=== PATIENT | male | born 1960 | race Caucasian/White ===

== ENCOUNTER 2019-01-05 11:08 | Inpatient (IN) ==
[2019-01-05] MEDS ORDERED: CARDIZEM IV ONE (11:34)
[2019-01-05 11:39] LABS: BE -4.6 mmoll (-3.0-3.0); BLOOD TYPE ARTERIAL; HCO3-(ACT) 21.1 mmoll (20.0-26.0); METHB 1.2 % (0.0-1.5); O2(CT) 21.9 mL/dL (15.0-23.0); O2HB 91.2 % (95.0-99.0); PCO2(98.6) 29 mmHg (35-45); PO2(98.6) 67 mmHg (60-100); SAMPLE BLOOD; SAO2 94.6 % (95.0-100.0); THB 17.1 g/dL (11.5-17.4); pH(98.6) 7.41 (7.35-7.45)
[2019-01-05 11:41] LABS: ALLEN TEST YES; MODALITY ROOM AIR
--- NOTE | 2019-01-05 11:41 | PROVIDER DOCUMENTATION ---
HPI-Respiratory General - General Chief Complaint: Alcohol Withdrawal Stated Complaint: WITHDRAWLS / SOB Time Seen by Provider: 01/05/19 11:24 Source: patient Allergies/Adverse Reactions: Patient Allergies Allergy/AdvReac Type Severity Reaction Status Date / Time No Known Allergies Allergy Verified 01/05/19 11:20 Home Medications: Home Medication List Medication Instructions Recorded Confirmed Last Taken Type NK [No Home Medications] 01/05/19 01/05/19 Unknown History - History of Present Illness-Resp Nature of Presenting Problem: Pt is 58 yo male, states shortness of breath worse today. Denies chest pain. D enies cough or fever. Pt states he drinks approx 1 pint of vodka per day and has not had anything to drink in 6 days. Family member states "he has all of the symptoms of copd and we need to get him diagnosed today if we can". Pt reports pmh includes colon ca several years ago, afib, currently not taking any meds x 4 years. Onset/Duration: reports: gradual Timing: reports: still present, getting worse Review of Systems - Adult - REVIEW OF SYSTEMS - ADULT Constitutional: denies: fever Eyes: reports: no symptoms reported Ears, Nose, Mouth & Throat: reports: no symptoms reported Cardiovascular: reports: edema. denies: chest pain Respiratory: reports: shortness of breath. denies: cough Gastrointestinal: reports: no symptoms reported Genitourinary: reports: no symptoms reported Musculoskeletal: reports: no symptoms reported Integumentary: reports: no symptoms reported Neurological: reports: no symptoms reported Psychiatric: reports: alcohol/drug dependence Endocrine: reports: no symptoms reported Hematologic/Lymphatic: reports: no symptoms reported Allergic/Immunologic: reports: no symptoms reported All Other Systems: Reviewed and Negative Past History - Adult - PAST MEDICAL HISTORY-ADULT Review of Records: reports: Medications Reviewed, Social history reviewed & non- contributory. Physical Exam-General - PHYSICAL EXAM-ADULT Initial Vital Signs Reviewed: Yes (tachycardic) - CONSTITUTIONAL General Appearance: appears well, alert - EYES Eyes: PERRL/EOMI, pink conjunctivae - HEAD, EARS, NOSE, MOUTH & THROAT HENMT: normocephalic/atraumatic, moist mucous membranes - NECK Neck: supple - RESPIRATORY Respiratory: respiratory distress (mild with conversing), decreased breath sounds (bilat bases) - CARDIOVASCULAR Cardiovascular: tachycardia, irregularly irregular - GASTROINTESTINAL (ABDOMEN) Abdominal Exam: non tender, soft, no organomegaly, guarding, other (well healed midline incision present) - MUSCULOSKELETAL Back Exam: normal inspection Extremity: swelling (bilat lower ext swelling 2+ pitting) - SKIN Integumentary: warm/dry, cyanosis (nose and ears) - NEUROLOGIC Neurologic: grossly normal - PSYCHIATRIC Psych/Mental Status: normal thought content, normal thought process, oriented x 3, anxious, disheveled Progress - PLAN OF CARE/RESULTS Progress/Plan/Lab Results: Vital Signs - 8 hr 01/05/19 11:14 01/05/19 11:29 01/05/19 11:40 Temperature 98 F Pulse Rate 107 H 175 H 139 H Respiratory Rate 19 27 H 23 Blood Pressure 127/94 161/126 151/116 O2 Sat by Pulse Oximetry 95 95 96 Laboratory Results - last 24 hr 01/05/19 01/05/19 01/05/19 11:30 11:30 11:30 WBC 8.32 RBC 4.71 Hgb 16.6 Hct 48.7 MCV 103.4 H MCH 35.2 H MCHC 34.1 RDW Std Deviation 16.8 H Plt Count 160 MPV 10.4 Immature Gran % (Auto) 0.2 Neut % (Auto) 84.1 H Lymph % (Auto) 7.8 L Esmeralda % (Auto) 7.3 Eos % (Auto) 0.4 Baso % (Auto) 0.2 Immature Gran # (Auto) 0.02 Neut # (Auto) 6.99 H Lymph # (Auto) 0.65 L Esmeralda # (Auto) 0.61 H Eos # (Auto) 0.03 Baso # (Auto) 0.02 PT INR PTT (Actin FS) D-Dimer, Quantitative Specimen Type Sample Site pH pCO2 pO2 HCO3 Base Excess Oxyhemoglobin ABG O2 Sat (Calculated) ABG O2 Saturation ABG Carboxyhemoglobin ABG Methemoglobin Gumaro Test A-a O2 Difference Total Hemoglobin Lactate Blood Gas Modality FiO2 % Sodium Potassium Chloride Carbon Dioxide Anion Gap BUN Creatinine Estimated GFR/1.73 m2 BUN/Creatinine Ratio Glucose Calculated Osmolality Calcium Magnesium Total Bilirubin AST ALT Alkaline Phosphatase Creatine Kinase 141 Troponin T 0.041 Sax-I-Cynjxzdxtyc Pept Total Protein Albumin Globulin Albumin/Globulin Ratio Plasma Lactate Urine Source Urine Color Urine Clarity Urine pH Ur Specific [place] Urine Protein Urine Ketones Urine Blood Urine Nitrite Urine Bilirubin Urine Urobilinogen Urine Microscopic RBC Urine WBC Urine Microscopic WBC Ur Epithelial Cells Urine Crystals Urine Bacteria Urine Casts Urine Yeast Urine Glucose Urine Opiates Screen Ur Oxycodone Screen Urine Methadone Screen U Propoxyphene Qual Ur Barbituates Screen Ur Tricyclics Screen Ur Phencyclidine Scrn Ur Amphetamines Screen U Methamphetamines Scrn U Benzodiazepines Scrn Urine Cocaine Screen U Cannabinoids Screen Plasma/Serum Ethyl Alc 01/05/19 01/05/19 01/05/19 11:30 11:30 11:30 WBC RBC Hgb Hct MCV MCH MCHC RDW Std Deviation Plt Count MPV Immature Gran % (Auto) Neut % (Auto) Lymph % (Auto) Esmeralda % (Auto) Eos % (Auto) Baso % (Auto) Immature Gran # (Auto) Neut # (Auto) Lymph # (Auto) Esmeralda # (Auto) Eos # (Auto) Baso # (Auto) PT INR PTT (Actin FS) D-Dimer, Quantitative 3.71 H Specimen Type Sample Site pH pCO2 pO2 HCO3 Base Excess Oxyhemoglobin ABG O2 Sat (Calculated) ABG O2 Saturation ABG Carboxyhemoglobin ABG Methemoglobin Gumaro Test A-a O2 Difference Total Hemoglobin Lactate Blood Gas Modality FiO2 % Sodium 140 Potassium 4.8 Chloride 102 Carbon Dioxide 21 L Anion Gap 17 BUN 40 H Creatinine 1.1 Estimated GFR/1.73 m2 > 60 BUN/Creatinine Ratio 36 Glucose 133 H Calculated Osmolality 291 Calcium 8.9 Magnesium 1.3 L Total Bilirubin 2.10 H AST 26 ALT 16 Alkaline Phosphatase 197 H Creatine Kinase Troponin T Gvc-A-Fckokbhxstn Pept Total Protein 6.8 Albumin 3.5 Globulin 3.0 Albumin/Globulin Ratio 1.0 Plasma Lactate Urine Source Urine Color Urine Clarity Urine pH Ur Specific [place] Urine Protein Urine Ketones Urine Blood Urine Nitrite Urine Bilirubin Urine Urobilinogen Urine Microscopic RBC Urine WBC Urine Microscopic WBC Ur Epithelial Cells Urine Crystals Urine Bacteria Urine Casts Urine Yeast Urine Glucose Urine Opiates Screen Ur Oxycodone Screen Urine Methadone Screen U Propoxyphene Qual Ur Barbituates Screen Ur Tricyclics Screen Ur Phencyclidine Scrn Ur Amphetamines Screen U Methamphetamines Scrn U Benzodiazepines Scrn Urine Cocaine Screen U Cannabinoids Screen Plasma/Serum Ethyl Alc 01/05/19 01/05/19 01/05/19 11:30 11:30 11:32 WBC RBC Hgb Hct MCV MCH MCHC RDW Std Deviation Plt Count MPV Immature Gran % (Auto) Neut % (Auto) Lymph % (Auto) Esmeralda % (Auto) Eos % (Auto) Baso % (Auto) Immature Gran # (Auto) Neut # (Auto) Lymph # (Auto) Esmeralda # (Auto) Eos # (Auto) Baso # (Auto) PT 14.9 INR 1.11 PTT (Actin FS) 29.4 D-Dimer, Quantitative Specimen Type ARTERIAL Sample Site R RADIAL pH 7.41 pCO2 29 L pO2 67 HCO3 21.1 Base Excess -4.6 L Oxyhemoglobin 91.2 L ABG O2 Sat (Calculated) 21.9 ABG O2 Saturation 94.6 L ABG Carboxyhemoglobin 2.40 ABG Methemoglobin 1.2 Gumaro Test YES A-a O2 Difference 46.0 Total Hemoglobin 17.1 Lactate 2.10 Blood Gas Modality ROOM AIR FiO2 % 21.0 Sodium Potassium Chloride Carbon Dioxide Anion Gap BUN Creatinine Estimated GFR/1.73 m2 BUN/Creatinine Ratio Glucose Calculated Osmolality Calcium Magnesium Total Bilirubin AST ALT Alkaline Phosphatase Creatine Kinase Troponin T Uvh-E-Iqukbnttism Pept 8182 H Total Protein Albumin Globulin Albumin/Globulin Ratio Plasma Lactate Urine Source Urine Color Urine Clarity Urine pH Ur Specific [place] Urine Protein Urine Ketones Urine Blood Urine Nitrite Urine Bilirubin Urine Urobilinogen Urine Microscopic RBC Urine WBC Urine Microscopic WBC Ur Epithelial Cells Urine Crystals Urine Bacteria Urine Casts Urine Yeast Urine Glucose Urine Opiates Screen Ur Oxycodone Screen Urine Methadone Screen U Propoxyphene Qual Ur Barbituates Screen Ur Tricyclics Screen Ur Phencyclidine Scrn Ur Amphetamines Screen U Methamphetamines Scrn U Benzodiazepines Scrn Urine Cocaine Screen U Cannabinoids Screen Plasma/Serum Ethyl Alc 01/05/19 01/05/19 01/05/19 12:40 13:19 13:19 WBC RBC Hgb Hct MCV MCH MCHC RDW Std Deviation Plt Count MPV Immature Gran % (Auto) Neut % (Auto) Lymph % (Auto) Esmeralda % (Auto) Eos % (Auto) Baso % (Auto) Immature Gran # (Auto) Neut # (Auto) Lymph # (Auto) Esmeralda # (Auto) Eos # (Auto) Baso # (Auto) PT INR PTT (Actin FS) D-Dimer, Quantitative Specimen Type Sample Site pH pCO2 pO2 HCO3 Base Excess Oxyhemoglobin ABG O2 Sat (Calculated) ABG O2 Saturation ABG Carboxyhemoglobin ABG Methemoglobin Gumaro Test A-a O2 Difference Total Hemoglobin Lactate Blood Gas Modality FiO2 % Sodium Potassium Chloride Carbon Dioxide Anion Gap BUN Creatinine Estimated GFR/1.73 m2 BUN/Creatinine Ratio Glucose Calculated Osmolality Calcium Magnesium Total Bilirubin AST ALT Alkaline Phosphatase Creatine Kinase Troponin T Iiq-H-Nbiuxjjmwex Pept Total Protein Albumin Globulin Albumin/Globulin Ratio Plasma Lactate 2.3 H Urine Source CLEAN CATCH Urine Color YELLOW Urine Clarity CLEAR Urine pH 6.5 Ur Specific [place] 1.020 Urine Protein 2+(100 mg/dL) A Urine Ketones TRACE Urine Blood TRACE Urine Nitrite NEGATIVE Urine Bilirubin NEGATIVE Urine Urobilinogen 8 Urine Microscopic RBC 10-20 A Urine WBC TRACE A Urine Microscopic WBC <10 Ur Epithelial Cells <10 Urine Crystals NONE SEEN Urine Bacteria 1+ Urine Casts NONE SEEN Urine Yeast NONE SEEN Urine Glucose NEGATIVE Urine Opiates Screen NONE DETECTED Ur Oxycodone Screen NONE DETECTED Urine Methadone Screen NONE DETECTED U Propoxyphene Qual NONE DETECTED Ur Barbituates Screen NONE DETECTED Ur Tricyclics Screen NONE DETECTED Ur Phencyclidine Scrn NONE DETECTED Ur Amphetamines Screen NONE DETECTED U Methamphetamines Scrn NONE DETECTED U Benzodiazepines Scrn NONE DETECTED Urine Cocaine Screen NONE DETECTED U Cannabinoids Screen NONE DETECTED Plasma/Serum Ethyl Alc Orders Category Date Time Status Admit Patient To Inpatient Status Routine AdmDCTranf 01/05/19 13:48 Active Cardiac Monitoring DIRECTED Care 01/05/19 11:22 Completed Cardiac Monitoring DIRECTED Care 01/05/19 12:51 Completed Notify MD of + Sepsis Screen NOW Care 01/05/19 12:51 Active Notify Physician As Ordered Care 01/05/19 12:51 Active Nursing- Obtain EKG ONCE Care 01/05/19 11:22 Active Saline Loc NOW Care 01/05/19 11:25 Active CHEST-2 VIEWS [RAD] Stat Exams 01/05/19 11:22 Completed ABG [RESP] Routine Lab 01/05/19 11:32 Completed ALCOHOL BLOOD Stat Lab 01/05/19 11:30 Completed BLOOD CULTURE [BLDCUL] Stat Lab 01/05/19 12:52 Ordered CBC WITH DIFF [HEME] Stat Lab 01/05/19 11:30 Completed CK PROFILE [SP CHEM] Stat Lab 01/05/19 11:30 Completed COMPREHENSIVE METABOLIC PANEL [CHEM] Stat Lab 01/05/19 11:30 Completed D-DIMER [COAG] Stat Lab 01/05/19 11:30 Completed LACTATE, PLASMA [CHEM] Q3H Lab 01/05/19 12:40 Completed LACTATE, PLASMA [CHEM] Q3H Lab 01/05/19 14:40 Completed LACTATE, PLASMA [CHEM] Q3H Lab 01/05/19 18:35 Ordered MAGNESIUM [CHEM] Stat Lab 01/05/19 11:30 Completed PRO B-NATRIURETIC PEPTIDE Stat Lab 01/05/19 11:30 Completed PROTIME WITH INR [COAG] Stat Lab 01/05/19 11:30 Completed PTT [COAG] Stat Lab 01/05/19 11:30 Completed TROPONIN T Stat Lab 01/05/19 11:[address] W/POSS RFLX CULT [URINALYSIS] Stat Lab 01/05/19 13:19 [address] DRUG SCREEN [address] Stat Lab 01/05/19 13:19 Completed Azithromycin 500 mg/Ns [Zithromax 500 mg/Ns] Med 01/05/19 12:19 Discontinued 500 mg in 250 ml IV NOW CefTRIAXONE [Rocephin] 1 gm Med 01/05/19 12:19 Discontinued 0.9% Sodium Chloride Inj [Ns] 50 ml IV NOW Diltiazem 125 mg/D5w [Cardizem 125 mg/D5w] Med 01/05/19 12:00 Discontinued 125 mg in 125 ml IV As Directed mls/hr Diltiazem [Cardizem] Med 01/05/19 11:34 Discontinued 10 mg IV NOW ONE Mvi [M.v.i.-12] 10 ml Med 01/05/19 11:46 Discontinued Folic Acid 1 mg Magnesium Sulfate 1 gm Thiamine 100 mg 0.9% Sodium Chloride Inj [Ns] 1,000 ml IV NOW Oxygen Device Stat Oth 01/05/19 12:51 Completed EKG [EKG] Stat Ther 01/05/19 11:22 Ordered Transfer/Admit Order [TRANSFER] Routine Transfer 01/05/19 13:00 Completed Result Diagrams: 01/05/19 11:30 01/05/19 11:30 Departure - Departure Date of Disposition Decision: 01/05/19 Time of Disposition Decision: 15:00 DIAGNOSIS: Pneumonia, A-fib Disposition: ADMITTED INPATIENT 09 Certified Medical Emergency: Emergent Condition: Fair - Critical Care Note This patient required my direct & personal management of CC.: No Attestation - Physician/ WILLIS Attestation Patient care was provided by Advanced Practice Provider:: Yes Advanced Practice Provider documentation review:: The Mid-level provider documentation, treatment plan and medical decision making was reviewed by the physician who agrees with all treatment and medical decision making by the MLP. The physician spent face to face time with patient:: No Advanced Practice Provider documentation review:: Supervising physician onsite and consulted in the evaluation and care of this patient. The physician did not have a face to face encounter with the patient.
[2019-01-05 11:43] LABS: BASO# 0.02 X1000 (0.0-0.2); BASO% 0.2 % (0.0-0.8); EOS# 0.03 X1000 (0.0-0.7); EOS% 0.4 % (0.0-10.0); HEMATOCRIT 48.7 % (42.0-52.0); HEMOGLOBIN 16.6 g/dL (14.0-18.0); IMM GRAN# 0.02 X1000 (0.0-0.04); IMM GRAN% 0.2 % (0.0-0.5); LYMPH# 0.65 X1000 (1.2-3.4); LYMPH% 7.8 % (20.5-51.1); MCH 35.2 PG (27-31); MCHC 34.1 g/dL (33-37); MCV 103.4 FL (81-99); MONO# 0.61 X1000 (0.11-0.59); MONO% 7.3 % (1.7-9.3); MPV 10.4 FL (7.4-10.4); NEUT# 6.99 X1000 (1.4-6.5); NEUT% 84.1 % (42.2-75.2); PLT 160 X1000 (130-400); RBC 4.71 XMIL (4.7-6.1); RDW 16.8 % (11.5-14.5); WBC 8.32 X1000 (4.8-10.8)
[2019-01-05] MEDS ORDERED: M.V.I.-12 10 ML, FOLIC ACID 1 MG, MAGNESIUM SULFATE 1 GM, THIAMINE 100 MG in NS 1,000 ML IV ONE (11:46)
[2019-01-05] MEDS ORDERED: CARDIZEM 125 MG/D5W 125 MG/125 ML IVPB IV SCH ×2 (12:00→14:30)
[2019-01-05 12:03] LABS: AGAP 17; ALBUMIN 3.5 g/dL (3.5-5.0); ALKALINE PHOSPHATASE 197 U/L (32-122); BUN 40 mg/dL (8-22); CALCIUM 8.9 mg/dL (8.8-10.2); CHLORIDE 102 mmol/L (98-107); COSMO 291; CREATININE 1.1 mg/dL (0.7-1.2); ESTIMATED GFR > 60; GLUCOSE 133 mg/dL (70-104); GOT 26 U/L (10-34); GPT 16 U/L (10-44); MAGNESIUM 1.3 mg/dL (1.5-2.7); POTASSIUM 4.8 mmol/L (3.5-5.1); SODIUM 140 mmol/L (136-145); TCO2 21 mmol/L (25-35); TOTAL PROTEIN 6.8 g/dL (6.3-8.3)
--- NOTE | 2019-01-05 12:06 | ED EKG INTERP ---
This chart was entered by Kitty Senior Scribe, acting as scribe for Matteo Tyson MD. EKG Interpretation - EKG Time of EKG reading by physician:: 11:33 EKG Read and Signed by:: Matteo Tyson EKG Interpretation (*Must complete 3 of following elements*): Abnormal Rate: 160 Rhythm: A fib Sophia: right QRS: other (Right ventricular hypertrophy) ST Wave: non-specific ST changes Attestation - Physician/ WILLIS Attestation Patient care was provided by Advanced Practice Provider:: Yes Advanced Practice Provider:: Marion Kirkpatrick Advanced Practice Provider documentation review:: The Mid-level provider docume ntation, treatment plan and medical decision making was reviewed by the physician who agrees with all treatment and medical decision making by the [facility]. The physician spent face to face time with patient:: No Advanced Practice Provider documentation review:: Supervising physician onsite and consulted in the evaluation and care of this patient. The physician did not have a face to face encounter with the patient. This chart was documented by the indicated scribe, (Kitty Senior Scribe) and accurately reflects the services I performed and decisions made by me, Matteo Tyson MD, as attested by the provider's signature.
--- NOTE | 2019-01-05 12:15 | Diag Imaging Result Doc PS360 ---
EXAM: CHEST-2 VIEWS HISTORY: sob w/d TECHNIQUE: Chest two views COMPARISON: None. FINDINGS: The lungs are hyperexpanded. The heart is enlarged. There is trace pleural fluid. Infiltrates and atelectasis in the right base. No pulmonary edema. IMPRESSION: Cardiomegaly with tiny effusions with atelectasis and infiltrates in the right lung base. Electronically signed by Go Darnell 01/05/2019 12:12 PM
[2019-01-05] MEDS ORDERED: ROCEPHIN 1 GM in NS 50 ML IV ONE (12:19)
[2019-01-05] MEDS ORDERED: ZITHROMAX 500 MG/NS 500 MG/250 ML IVPB IV ONE (12:19)
[2019-01-05 13:31] LABS: INR 1.11; PROTIME 14.9 Seconds (11.0-16.0)
[2019-01-05 13:32] LABS: PTT 29.4 Seconds (22.3-41.8)
[2019-01-05 13:45] LABS: BILIRUBIN URINE NEGATIVE (NEGATIVE); BLOOD URINE TRACE (NEGATIVE); CLARITY CLEAR (CLEAR); COLOR YELLOW; GLUCOSE URINE NEGATIVE (NEGATIVE); KETONE URINE TRACE mg/dL (NEGATIVE); LEUKOCYTES URINE TRACE (NEGATIVE); NITRITE URINE NEGATIVE (NEGATIVE); PH URINE 6.5; PROTEIN URINE 2+(100 mg/dL) mg/dL (NEGATIVE); UR AMPHETAMINES QUAL NONE DETECTED (NONE DETECT); UR BARBITUATES QUAL NONE DETECTED (NONE DETECT); UR BENZODIAZEPIN QUAL NONE DETECTED (NONE DETECT); UR CANNABINOIDS QUAL NONE DETECTED (NONE DETECT); UR COCAINE QUAL NONE DETECTED (NONE DETECT); UR METHADONE QUAL NONE DETECTED (NONE DETECT); UR METHAMPHETAMINE QUAL NONE DETECTED (NONE DETECT); UR OPIATES QUAL NONE DETECTED (NONE DETECT); UR OXYCODONE QUAL NONE DETECTED (NONE DETECT); UR PCP QUAL NONE DETECTED (NONE DETECT); UR PROPOXYPHENE QUAL NONE DETECTED (NONE DETECT); UR TCA QUAL NONE DETECTED (NONE DETECT); URINE BACTERIA 1+ /HFP; URINE CAST NONE SEEN /LPF; URINE CRYSTAL NONE SEEN /HPF; URINE EPITHELIAL CELLS <10 /HPF (<10); URINE SOURCE CLEAN CATCH; URINE WBC <10 /HPF (<10); URINE YEAST NONE SEEN /HPF; UROBILINOGEN URINE 8 mg/dL
[2019-01-05] MEDS ORDERED: LOVENOX SUBQ SCH (14:15)
[2019-01-05] MEDS: LIBRIUM PO SCH ×2 (14:50→20:39)
--- NOTE | 2019-01-05 15:57 | Diag Imaging Result Doc PS360 ---
EXAM: CT ANGIOGRM PULMONARY ARTERIES HISTORY: elevated ddimer, A Fib TECHNIQUE: CT chest with intravenous contrast. Pulmonary two protocol with MIP images. COMPARISON: None. FINDINGS: Normal opacification of the pulmonary arteries and their major branches. No thoracic aortic aneurysm. There is a moderate to large right-sided pleural effusion measuring 6.5 cm posteriorly and inferiorly in the midline. There is a small left pleural effusion measuring 1.5 cm inferiorly. Small pericardial effusion measuring approximately 6 mm. The heart is mildly enlarged. Mildly prominent mediastinal nodes. Severe emphysema. There is atelectasis to the lower lobes. Questionable small underlying infiltrates. IMPRESSION: 1.No pulmonary emboli 2.Moderate to large right pleural effusion with small left pleural effusion 3.Small pericardial effusion with mild cardiomegaly 4.Basilar atelectasis 5.Severe emphysema This exam was performed using automated exposure control, adjustment of mA or kV according to patient size, and/or use of iterative reconstruction technique. Electronically signed by Go Darnell 01/05/2019 3:54 PM
--- NOTE | 2019-01-05 16:52 | Extremity Venous Study ---
Venous U/S Bilateral Legs - 01/05/2019 INDICATION: elevated ddimer, afib TECHNIQUE: COMPARISON: None FINDINGS: The veins of both legs are fully compressible. There is normal color and pulse wave Doppler signal. IMPRESSION: Negative exam. Electronically signed by Jose Joiner 01/05/2019 4:50 PM
[2019-01-05] MEDS: LASIX IV SCH (16:56)
[2019-01-05 17:09] LABS: BILIRUBIN URINE NEGATIVE (NEGATIVE); BLOOD URINE TRACE (NEGATIVE); GLUCOSE URINE NEGATIVE (NEGATIVE); KETONE URINE TRACE mg/dL (NEGATIVE); LEUKOCYTES URINE TRACE (NEGATIVE); NITRITE URINE NEGATIVE (NEGATIVE); PH URINE 6.5; PROTEIN URINE 1+(30 mg/dL) mg/dL (NEGATIVE); UROBILINOGEN URINE 4 mg/dL
[2019-01-05 17:10] LABS: CLARITY CLEAR (CLEAR); COLOR YELLOW
[2019-01-05 17:11] LABS: URINE RBC <10 /HPF (<10); URINE SOURCE CATH; URINE WBC <10 /HPF (<10)
[2019-01-05 17:12] LABS: URINE BACTERIA 1+ /HFP; URINE CAST NONE SEEN /LPF; URINE CRYSTAL NONE SEEN /HPF; URINE EPITHELIAL CELLS <10 /HPF (<10); URINE YEAST NONE SEEN /HPF
[2019-01-05] MEDS: APRESOLINE IV PRN (18:20)
--- NOTE | 2019-01-05 20:11 | HISTORY AND PHYSICAL ---
PRIMARY CARE PHYSICIAN: None. CHIEF COMPLAINT: Shortness of breath. HISTORY OF PRESENT ILLNESS: This is a 58-year-old gentleman with a history of atrial fibrillation, chronic alcohol abuse, congestive heart failure and chronic shortness of breath. He presents to the emergency room complaining of increasing shortness of breath. He states that he has been at his baseline for about the last year or two, although over the last few months he has noticed that he does have more dyspnea on exertion. He does have chronic lower extremity edema that usually will resolve during the night after elevation of his legs. He states over the last 5 to 6 days that it has been persistent. In fact, about 6 or 7 days ago he noticed that he had edema that was about mid-thigh. Since then he has had increasing shortness of breath. He describes 3 pillow orthopnea over the last 24 to 48 hours. He denies any fevers or chills or any chest pain. He does drink a pint of vodka a day. He states the last time he had a drink was 6 days ago although he has developed a slight tremor in the last 24 to 48 hours. The patient remembers having an echocardiogram done about 6 years ago. He cannot remember results, but he did state "I remember there was a 30% in there somewhere." He does remember being on Cardizem and another fluid pill. He moved to [place] 4 years ago and has not had any workup. He has not had a primary care physician. When prescriptions ran out, he did not attempt to refill them. PAST MEDICAL HISTORY: Hypertension, atrial fibrillation, heart failure, history of colon cancer, chronic alcohol use. PAST SURGICAL HISTORY: "Surgery for colon cancer." SOCIAL HISTORY: He quit smoking in the last year or two. He drinks a pint of vodka a day. He denies any illicit drug use. He does work at [employer]. He lives with his parents. ALLERGIES: No known drug allergies. HOME MEDICATIONS: None. REVIEW OF SYSTEMS: Discussed with the patient with pertinent positives stated in the HPI. He denied any syncope or dizziness, any chest pain or palpitations, a productive cough; any fevers or chills, night sweats, recent weight loss or weight gain; any nausea, vomiting, diarrhea, constipation, black or bloody vomitus or stools; any hematuria, dysuria, frequency, urgency. PHYSICAL EXAMINATION: GENERAL: This is a 58-year-old gentleman who is sitting up in the bed in mild distress. VITAL SIGNS: Blood pressure is 104/80 with a respiratory rate of 22. Heart rate is ranging from 94% to 106, temperature is 97.7 with O2 saturations 94-96% on 2 L nasal cannula. HEENT: Eyes: Pupils are equal, round, react to light. EOMs are intact. Sclerae anicteric. Head is normocephalic, atraumatic. Mucous membranes are moist. NECK: Supple. Trachea midline. CARDIOVASCULAR: Irregularly irregular rate and rhythm. He is tachycardic. S1 and S2 appreciated. He has 1 to 2+ edema noted to just above his knees. Calves are nontender bilaterally with peripheral pulses palpable x4 extremities. PULMONARY: Breath sounds are decreased in the bases. Chest rises and falls symmetric with respiration. GASTROINTESTINAL: Abdomen is soft, nontender, nondistended with bowel sounds in all 4 quadrants. GENITOURINARY: He has no CVA or suprapubic tenderness. SKIN: Warm and dry. LABS: WBC is 8.3 with hemoglobin 16.6, hematocrit 48.7, and platelets 160. INR is 1.11 with a D- dimer of 3.71. Sodium 140, potassium 4.8, BUN 40, creatinine 1 with a glucose of 133, magnesium is 1.3. Total bilirubin is 2.1. He does have a proBNP of 8182. Troponin is negative. Urinalysis is essentially negative. Urine drug screen reveals none detected with blood alcohol being none detected. Chest x-ray: Cardiomegaly with tiny effusions with atelectasis, infiltrates in the right lung base. ASSESSMENT AND PLAN: 1. Atrial fibrillation with rapid ventricular response. The patient has been started on Cardizem drip. We will continue per protocol. He will be transferred to ICU for close monitoring. We will check a TSH as well as an echocardiogram and we will start Lovenox. 2. Pneumonia. He was given Rocephin and azithromycin in the emergency room. We will continue. If blood cultures were not obtained, we will obtain these and further antibiotics will be culture driven. 3. Shortness of breath. We will give supplemental oxygen and continue with above treatments. 4. Elevated D-dimer. We will obtain a CTA pulmonary and bilateral lower extremity Doppler. 5. History of alcohol use and abuse. The patient feels he might be going through withdrawal. He does have a slight tremor. We will start a Librium taper and monitor closely. 6. Questionable history of congestive heart failure. We will obtain an echocardiogram. 7. Hypomagnesemia. We will replete and trend electrolytes daily. 8. Further treatments pending hospital course. Dictated by YNES Zuniga for Hong Malone MD cc: YNES Zuniga MD [facility]
--- NOTE | 2019-01-05 20:58 | HISTORY AND PHYSICAL ---
ADDENDUM: Patient seen and examined by myself. Full note dictated and discussed with nurse practitioner. Patient presented to the hospital with increased shortness of breath. Does have a history of colon cancer some years ago. Also has a known history of atrial fibrillation, but has not been taking any of his medications. He has moved from [place] and has not followed up with a provider. His D-dimer is elevated. CT of the chest demonstrated pleural effusions. We have admitted him, will treat his rate, place him on Lasix for his effusion, and will follow. cc: Hong Malone MD
[2019-01-06] MEDS: LIBRIUM PO SCH ×4 (02:37→21:19)
[2019-01-06] MEDS: LASIX IV SCH ×2 (03:37→18:20)
[2019-01-06 05:37] LABS: EOS# 0.06 X1000 (0.0-0.7); EOS% 0.7 % (0.0-10.0); HEMATOCRIT 42.3 % (42.0-52.0); HEMOGLOBIN 14.4 g/dL (14.0-18.0); IMM GRAN# 0.02 X1000 (0.0-0.04); IMM GRAN% 0.2 % (0.0-0.5); LYMPH# 0.52 X1000 (1.2-3.4); LYMPH% 5.7 % (20.5-51.1); MCH 34.9 PG (27-31); MCV 102.4 FL (81-99); MONO# 0.75 X1000 (0.11-0.59); MONO% 8.2 % (1.7-9.3); MPV 10.9 FL (7.4-10.4); NEUT# 7.76 X1000 (1.4-6.5); NEUT% 85.2 % (42.2-75.2); PLT 139 X1000 (130-400); RBC 4.13 XMIL (4.7-6.1); RDW 17.2 % (11.5-14.5); WBC 9.11 X1000 (4.8-10.8)
[2019-01-06 06:23] LABS: AGAP 12; ALBUMIN 3.2 g/dL (3.5-5.0); ALKALINE PHOSPHATASE 189 U/L (32-122); BUN 36 mg/dL (8-22); CALCIUM 8.1 mg/dL (8.8-10.2); CHLORIDE 103 mmol/L (98-107); COSMO 285; CREATININE 0.8 mg/dL (0.7-1.2); ESTIMATED GFR > 60; GLUCOSE 89 mg/dL (70-104); GOT 24 U/L (10-34); GPT 13 U/L (10-44); SODIUM 139 mmol/L (136-145); TCO2 24 mmol/L (25-35); TOTAL PROTEIN 5.5 g/dL (6.3-8.3)
--- NOTE | 2019-01-06 07:32 | Diag Imaging Result Doc PS360 ---
EXAM: CHEST-PORTABLE 01/06/2019 HISTORY: plural effusion TECHNIQUE: AP portable at 0730 COMMENT: There is cardiomegaly. There is increased platelike opacity in the inferior right upper lobe compared to 01/05/2019. IMPRESSION: Worsening right upper lobe atelectasis. Electronically signed by Shimon Hinson 01/06/2019 7:30 AM
[2019-01-06] MEDS ORDERED: ZITHROMAX PO SCH (09:00)
[2019-01-06 09:04] LABS: LYMPHS 6 % (21-51); MONO 4 % (1-9); SEGS 90 % (42-75)
[2019-01-06] MEDS: ROCEPHIN 1 GM in NS 50 ML IV SCH (12:41)
[2019-01-06] MEDS ORDERED: MAGNESIUM SULFATE 2 GM/S.W.I. 2 GM/50 ML IVPB IV ONE (13:39)
[2019-01-06] MEDS ORDERED: LASIX IV ONE (13:45)
[2019-01-06] MEDS ORDERED: TOPROL XL PO SCH (13:45)
--- NOTE | 2019-01-06 14:07 | CARDIOLOGY CONSULTATION ---
DATE: 01/06/2019 HISTORY OF PRESENT ILLNESS: Mr. Morro Michael is a 58-year-old gentleman who has history of atrial fibrillation, chronic alcohol abuse, history of congestive heart failure, who has relocated from [place] and is taking care of his mother. He had multiple tests done while he was in [place]. Patient states that he has had an arteriogram done as well as cardioversions were attempted, and he has atrial fibrillation. He does not take any medications. He noticed increasing shortness of breath with minimal exertion associated with cough and mucoid to mucopurulent expectoration for the last week or so. He denies chest pain suggestive of angina. He drinks about a pint of vodka on a daily basis. The last time he had drank was about 6 days back. He developed some tremors in the last couple of days. He was noted to be in atrial fibrillation, started on a Cardizem drip, and admitted. PAST MEDICAL HISTORY: Hypertension, atrial fibrillation, heart failure, colon cancer, chronic alcohol abuse. PAST SURGICAL HISTORY: Colon surgery. MEDICATIONS: He is not on any medications, has not been on medicines for some time. REVIEW OF SYSTEMS: Gastrointestinal System: There is no history of nausea, vomiting, diarrhea. There is no history of hematemesis or melena. Central nervous system: No focal weakness to suggest a CVA or TIA. Genitourinary System: There is no dysuria or hematuria. PHYSICAL EXAMINATION: On examination, blood pressure was 104/80. 1st and second heart sounds were heard. There was a soft systolic murmur.Respiratory System: Dullness at the base. Bibasilar scattered inspiratory crepitations. Abdomen: Soft. Nontender. There was no guarding or rigidity. Bowel sounds were heard. Central Nervous System: Alert and oriented. He was moving all 4 extremities. Examination of extremities revealed no pedal edema. DIAGNOSTIC STUDIES: Laboratory examination revealed WBC 9.1, hemoglobin 14, hematocrit 42, platelet count of 139. D-dimer was abnormal. Chemistry: Sodium 139, potassium 4.0, BUN 36, creatinine 0.8. Cardiac enzymes negative. Magnesium level was 1.3. A CT angiogram of his chest was done, which revealed no pulmonary emboli. There is moderate pleural effusion on the right and the left pleural effusion. Emphysema. Bilateral atelectasis with cardiomegaly noted. ASSESSMENT AND PLAN: Mr. Morro Michael is a 58-year-old gentleman who is an alcoholic and was noted to have congestive heart failure, atrial fibrillation in the past. He has not been taking any medications. He drinks about a pint of vodka on a daily basis. The patient is admitted with increasing shortness of breath, cough with mucoid to mucopurulent expectoration. The patient has bilateral pleural effusions. Severe emphysema on his CT angiogram. I do not have previous records from [place] to compare with regardless. 1. He has history of atrial fibrillation. He is on a Cardizem drip. I will add Toprol-XL 50 mg to his medical regimen. 2. We will get an echocardiogram to assess cardiac and valvular function. 3. Heart failure, likely systolic given his history. He has been started on 40 mg IV Lasix 12 twice daily. Continue with the same. 4. As far as Cardizem drip is concerned, we will discontinue the Cardizem drip. If he has LV dysfunction, we will treat it with digoxin and beta blockers. 5. Cough with mucopurulent expectoration. He has been started on ceftriaxone. 6. He has symptoms suggestive of delirium tremens. He is on Librium which has been started. 7. He had hypomagnesemia. We will replete that. cc: Cody Casas MD
[2019-01-06] MEDS: LANOXIN PO SCH (14:14)
[2019-01-06] MEDS: ZYVOX 600 MG/D5W 600 MG/300 ML IVPB IV SCH (14:44)
[2019-01-06] MEDS: VITAMIN B-1 PO SCH (14:44)
[2019-01-06] MEDS: FOLIC ACID PO SCH (14:44)
--- NOTE | 2019-01-06 14:46 | ECHO REPORT ---
ORDER DATE: 01/05/2019 INTERPRETING PHYSICIAN: Dr. Cody Casas ECHOCARDIOGRAPHIC MEASUREMENTS: 1. Interventricular septum: 1.2 cm. 2. Posterior wall: 1.2 cm. 3. Diastolic diameter: 4.8 cm. 4. Left ventricular systolic diameter: 3.7 cm. 5. Left atrium: 4 cm. 6. Aortic root: 3.9 cm. SUMMARY OF THE 2-DIMENSIONAL IMAGIN. Aortic valve leaflets were trileaflet. 2. Mitral valve was normal. 3. There is left atrial enlargement. 4. Pulmonic valve was normal. There is mild pulmonary regurgitation. 5. Atrial fibrillation was noted. 6. There is moderate to severe tricuspid regurgitation. Peak velocity across the tricuspid valve was 3.6 m/sec. 7. Pulmonary artery systolic pressure of 61 mmHg. 8. Right ventricle is dilated with reduced right ventricular systolic function. 9. There is biatrial enlargement. 10. There is mild mitral regurgitation. 11. Peak velocity across the aortic valve less than 2 m/sec. There is no aortic stenosis or regurgitation. 12. Normal left ventricular cavity size. Estimated ejection fraction of 40 percent. There is mild left ventricular hypertrophy. 13. Trace pericardial effusion. Pleural effusion was noted. There is no obvious intracardiac mass or thrombus seen. cc: MD Charity Crump CRNP
[2019-01-06] MEDS: TOPROL XL PO SCH ×2 (19:42→21:03)
[2019-01-06] MEDS: ATIVAN IV PRN (19:43)
[2019-01-06] MEDS: APRESOLINE IV PRN (20:22)
[2019-01-06] MEDS ORDERED: ATIVAN IV ONE (21:00)
--- NOTE | 2019-01-06 22:44 | PROGRESS NOTE ---
DATE: 01/06/2019 SUBJECTIVE: The patient himself notes that he is feeling okay. States he really does not feel any worse or any better. Denies any fevers or chills. PHYSICAL EXAMINATION: Vital Signs: Reviewed. He is afebrile. Blood pressure is stable currently. General: Patient is awake, alert. He is in moderate distress. He is very pleasant to talk with. HEENT: Normocephalic. Neck: Supple. Cardiovascular: Irregular rate, irregular rhythm. Chest: Decreased breath sounds bilateral bases. Positive rhonchi throughout. No crackles. Does have occasional wheezing. Abdomen: Soft, nondistended, nontender. Extremities: Moves all extremities. He has bilateral lower extremity edema. Skin: Warm and dry. He has no appreciable rashes. Neurologic: He is awake, alert, oriented. ASSESSMENT: 1. Atrial fibrillation with rapid ventricular response. 2. Pneumonia. 3. Moderate pleural effusion. 4. Hypomagnesemia, replaced. PLAN: At this point, we are going to transfer him to [facility] ICU for surgery to evaluate if chest tube would be warranted. We will consult Pulmonology and consult Cardiology also has pericardial effusion. Further orders as needed. cc: Hong Malone MD
[2019-01-07] MEDS: LIBRIUM PO SCH ×3 (00:11→06:18)
[2019-01-07] MEDS ORDERED: CARDIZEM IV ONE (00:46)
[2019-01-07] MEDS ORDERED: CARDIZEM 100 MG/NS 100 MG/100 ML IVPB IV SCH (01:00)
[2019-01-07] MEDS: D5W IV SCH ×2 (01:14→21:28)
[2019-01-07] MEDS: CARDIZEM IV SCH ×2 (01:14→21:28)
[2019-01-07] MEDS: ZYVOX 600 MG/D5W 600 MG/300 ML IVPB IV SCH ×3 (01:37→14:15)
[2019-01-07] MEDS: ATIVAN IV PRN ×2 (03:51→14:02)
[2019-01-07] MEDS: LASIX IV SCH ×2 (05:17→17:15)
[2019-01-07 05:56] LABS: HEMATOCRIT 48.1 % (42.0-52.0); HEMOGLOBIN 16.3 g/dL (14.0-18.0); MCH 35.1 PG (27-31); MCHC 33.9 g/dL (33-37); MCV 103.7 FL (81-99); MPV 10.8 FL (7.4-10.4); RBC 4.64 XMIL (4.7-6.1); WBC 11.3 X1000 (4.8-10.8)
[2019-01-07 06:08] LABS: AGAP 8; BUN 26 mg/dL (8-22); CALCIUM 8.2 mg/dL (8.8-10.2); CHLORIDE 93 mmol/L (98-107); COSMO 271; ESTIMATED GFR > 60; GLUCOSE 123 mg/dL (70-104); MAGNESIUM 1.3 mg/dL (1.5-2.7); POTASSIUM 4.2 mmol/L (3.5-5.1); SODIUM 132 mmol/L (136-145); TCO2 31 mmol/L (25-35)
[2019-01-07] MEDS ORDERED: MAGNESIUM SULFATE 2 GM/S.W.I. 2 GM/50 ML IVPB IV ONE (06:58)
[2019-01-07] MEDS: ATIVAN 20 MG in NS 190 ML IV SCH ×2 (08:07→17:15)
[2019-01-07 08:25] LABS: ALLEN TEST YES; BE 3.6 mmoll (-3.0-3.0); BLOOD TYPE ARTERIAL; HCO3-(ACT) 27.6 mmoll (20.0-26.0); METHB 1.2 % (0.0-1.5); MODALITY CANNULA; O2(CT) 21.2 mL/dL (15.0-23.0); O2HB 93.6 % (95.0-99.0); PCO2(98.6) 43 mmHg (35-45); PO2(98.6) 73 mmHg (60-100); SAMPLE BLOOD; SAO2 96.7 % (95.0-100.0); THB 16.1 g/dL (11.5-17.4); pH(98.6) 7.43 (7.35-7.45)
--- NOTE | 2019-01-07 08:43 | Diag Imaging Result Doc PS360 ---
CHEST-PORTABLE - 01/07/2019 INDICATION: change in status COMPARISON: 01/06/2019 FINDINGS: There is worsening infiltrate and probably a small pleural effusion at the right lung base. The left lung remains clear. There is cardiomegaly and worsening pulmonary vascular congestion. IMPRESSION: Worsening from prior. Electronically signed by Jose Joiner 01/07/2019 8:41 AM
[2019-01-07] MEDS ORDERED: NS NEB INH SCH (08:45)
--- NOTE | 2019-01-07 09:03 | PROGRESS NOTE ---
DATE: 01/07/2019 SUBJECTIVE: This patient is lying in bed. He is showing some signs of rigidity on the upper extremities. He is waking up. He is following commands, but he is not talking to me. He is short of breath as well. It looks like he was agitated during the night, and he received some Ativan. I believe he is having some signs of withdrawal. I will put him on an Ativan drip. I will also place an NG tube at some point to start tube feeding. He has been getting diuretics. Kidney function seems to be stable. He has a negative balance of 7 L so far. X-ray today is showing some haziness on the right side, probably pulmonary edema, mostly on the right side. OBJECTIVE: Vital Signs: Temperature 97.4 degrees, pulse 89, respiratory rate 30, blood pressure 118/88, oxygen saturation 92 on 4 L of nasal cannula. HEENT: Head normocephalic. No trauma. PERRLA. Neck: Supple. No JVD. No masses. Central trachea. Chest: Decreased breath sounds globally, but mostly on the right side. No sounds on the right base. Some crackles. Abdomen: Soft. Positive bowel sounds. Extremities: There is 1+ lower extremity edema. No clubbing. No cyanosis. He has some redness on his legs, which as per the patient is chronic. This is what he told me yesterday. LABORATORY DATA: WBC 11.3, hemoglobin 16.3, hematocrit 48.1, platelets 144,000. Sodium 132, potassium 4.2, chloride 93, bicarbonate 31, BUN 26, creatinine 1, glucose 123, calcium 8.2. Magnesium 1.3. ASSESSMENT AND PLAN: 1. Atrial fibrillation with rapid ventricular response. This patient has been placed again on Cardizem drip. He started having atrial fibrillation with rapid ventricular response during the night. We will continue monitoring this patient in the intensive care unit. Cardiology Department on board. 2. Likely bibasilar pneumonia. Continue with Rocephin and azithromycin. Continue with the same management. 3. Hypoxemic respiratory failure. This patient has emphysema and also likely pneumonia at the bases. I will put him on breathing treatment, and I will monitor this patient closely. Continue with antibiotics. 4. Alcohol withdrawal symptoms. I have placed this patient on Ativan. He was on Librium, which has been held. We will monitor this patient in the intensive care unit. 5. Elevated D-dimer. CT angiogram showed pleural effusion, mostly on the right side. He has been placed on diuretics. He has a negative balance of 7 liters. Cardiology on board. Continue to monitor. 6. Congestive heart failure, likely systolic. Continue with diuretics. 7. Pulmonary hypertension by echocardiogram, aware. Continue with diuretics and breathing treatment. 8. Hypomagnesemia. I will replace it today. 9. Nutritional status. This patient was on a diet, and apparently he has been tolerating liquids, but since he is going to be on an Ativan drip, we will place a nasogastric tube and we will start feedings. CRITICAL CARE TIME: 35 minutes. cc: Mor Barajas MD
--- NOTE | 2019-01-07 09:25 | PROGRESS NOTE ---
DATE: 01/07/2019 Mr. Morro Michael is a 58-year-old, white male who is in our ICU. He has a history of alcohol abuse and there is a question of whether he is undergoing withdrawal. He also has atrial fibrillation with a rapid ventricular response, bibasilar pneumonia, emphysema, and respiratory dysfunction. He also has a history of systolic congestive heart failure and pulmonary hypertension. We were asked to see him because of a chest x-ray which suggests pleural effusion on the right. I would avoid a chest tube at this time and treat him medically for his multiple medical problems. He is being diuresed for pulmonary edema and is being treated for his pneumonia with IV antibiotics. cc: Savi Morris MD
--- NOTE | 2019-01-07 10:53 | Diag Imaging Result Doc PS360 ---
CHEST/ABD TUBE PLACEMENT - 01/07/2019 9:29 AM INDICATION: NGT placement for medications COMPARISON: 2:40 AM FINDINGS: There is a nasogastric tube entering the stomach. This should be advanced by about 9 cm. IMPRESSION: Nasogastric tube enters the stomach. Please advanced by about 9 cm. Electronically signed by Jose Joiner 01/07/2019 10:51 AM
[2019-01-07] MEDS ORDERED: PROCALAMINE 1,000 ML IV SCH (11:45)
[2019-01-07] MEDS: LOVENOX SUBQ SCH ×2 (11:50→20:24)
[2019-01-07] MEDS: ROCEPHIN 1 GM in NS 50 ML IV SCH (11:50)
[2019-01-07] MEDS: CLINIMIX E 4.25%-5% SOLUTION 1,000 ML IV SCH (11:57)
--- NOTE | 2019-01-07 11:58 | Diag Imaging Result Doc PS360 ---
CHEST/ABD TUBE PLACEMENT - 01/07/2019 11:39 AM INDICATION: NG tube placement advanced NG COMPARISON: 9:29 AM FINDINGS: The nasogastric tube has been repositioned and is now fully within the stomach. IMPRESSION: Nasogastric tube in good position fully within the stomach. Electronically signed by Jose Joiner 01/07/2019 11:56 AM
[2019-01-07] MEDS: ATROVENT NEB INH SCH ×4 (11:59→23:32)
[2019-01-07] MEDS: XOPENEX NEB INH SCH ×4 (11:59→23:32)
[2019-01-07] MEDS: TOPROL XL PO SCH ×2 (12:14→20:24)
[2019-01-07] MEDS: VITAMIN B-1 PO SCH (12:15)
[2019-01-07] MEDS: ZITHROMAX PO SCH (12:15)
[2019-01-07] MEDS: LANOXIN PO SCH (12:15)
[2019-01-07] MEDS: FOLIC ACID PO SCH (12:15)
--- NOTE | 2019-01-07 18:21 | PULMONOLOGY CONSULTATION ---
DATE: 01/07/2019 REQUESTING PHYSICIAN: Dr. Vo. REASON FOR CONSULTATION: Respiratory failure. HISTORY OF PRESENT ILLNESS: Mr. Michael is a 58-year-old white male with extensive tobacco history (nonsmoker by report), history of ongoing alcohol use, who presented to the emergency room with increasing shortness of breath. The patient has history of atrial fibrillation but was on no medication. He presented to the emergency room his respiratory rate was 160. He underwent a pulmonary angiogram which revealed diffuse emphysematous changes, pleural effusion right greater than left, mild cardiomegaly. Patient's mental status has declined with increasing agitation, he is currently on sedation for alcohol withdrawal. An echocardiogram has been performed which reveals moderate pulmonary hypertension with PA pressure of 61 with mild to moderate reduction in ejection. PAST MEDICAL HISTORY: 1. History of colon surgery by report. 2. Atrial fibrillation with poor compliance . 3. Alcoholism. 4. COPD. 5. Hypertension. SOCIAL HISTORY: Nonsmoker for 1-2 years. Continues to drink 1 pint of hard spirits a day. He lives with his parents. FAMILY HISTORY: Contributory current presentation. REVIEW OF SYSTEMS: Limited. Patient mumbles but does not follow commands. PHYSICAL EXAMINATION: Reveals a chronically ill-appearing male who appears older than his stated age of 58. Heart rate 101, respiratory rate 33, blood pressure 135/97, oxygen saturation 97%. HEENT: Pupils are equal and reactive. Oropharynx is clear. Neck: Supple. Chest: Reveals prolonged expiratory phase. Cardiac: Increased rate irregular rhythm . Abdomen: Soft. Extremities: Reveal 1+ peripheral edema. LABORATORIES: Arterial blood gas this morning revealed pH 7.43, pCO2 of 43 and a PO2 of 73 on 4 L per nasal cannula. Sodium 132, potassium 4.2, chloride 93, bicarbonate 31, BUN 26, creatinine 1.0. White blood count 11.3, hemoglobin 16.3, MCV is elevated at 103.7. IMPRESSION: A 58-year-old with 1. Acute hypoxemic respiratory failure. 2. Bilateral effusions right greater than left. 3. Chronic obstructive pulmonary disease. 4. Atrial fibrillation with rapid ventricular response. 5. Noncompliance. 6. Alcoholism. 7. Alcohol withdrawal syndrome. 8. Macrocytosis on hematology. RECOMMENDATION: 1. Continue oxygen as needed to maintain saturation greater than 90%. 2. Agree with sedation as you are doing. 3. Rate control as you are doing. 4. Diuresis as you are doing. 5. Check a folate and B12 level although the macrocytosis is most likely due to the toxic effects of alcohol. 6. Counseled patient about the importance of alcohol cessation if he survives this alcohol withdrawal syndrome. cc: Mao Burk MD
[2019-01-08] MEDS: ZYVOX 600 MG/D5W 600 MG/300 ML IVPB IV SCH (02:29)
[2019-01-08] MEDS: CLINIMIX E 4.25%-5% SOLUTION 1,000 ML IV SCH ×2 (02:29→14:29)
[2019-01-08] MEDS: XOPENEX NEB INH SCH ×6 (03:37→22:43)
[2019-01-08] MEDS: ATROVENT NEB INH SCH ×6 (03:37→22:43)
[2019-01-08] MEDS: LASIX IV SCH ×2 (06:14→17:37)
[2019-01-08 06:39] LABS: BASO# 0.01 X1000 (0.0-0.2); BASO% 0.1 % (0.0-0.8); HEMATOCRIT 47.8 % (42.0-52.0); HEMOGLOBIN 16.5 g/dL (14.0-18.0); IMM GRAN# 0.11 X1000 (0.0-0.04); IMM GRAN% 0.6 % (0.0-0.5); LYMPH# 0.76 X1000 (1.2-3.4); LYMPH% 3.8 % (20.5-51.1); MCHC 34.5 g/dL (33-37); MCV 101.3 FL (81-99); MONO# 2.82 X1000 (0.11-0.59); MONO% 14.2 % (1.7-9.3); MPV 11.2 FL (7.4-10.4); NEUT# 16.11 X1000 (1.4-6.5); NEUT% 81.3 % (42.2-75.2); PLT 140 X1000 (130-400); RBC 4.72 XMIL (4.7-6.1); RDW 16.9 % (11.5-14.5); WBC 19.81 X1000 (4.8-10.8)
--- NOTE | 2019-01-08 06:47 | Diag Imaging Result Doc PS360 ---
EXAM: CHEST-PORTABLE HISTORY: dyspnea TECHNIQUE: Portable chest single view COMPARISON: None. FINDINGS: The lungs are well expanded. A nasogastric tube overlies the esophagus and stomach. The heart is enlarged. Small right pleural effusion with underlying atelectasis or infiltrates. Mild vascular distention. IMPRESSION: Stable chest. Electronically signed by Go Darnell 01/08/2019 6:44 AM
[2019-01-08 07:06] LABS: LYMPHS 3 % (21-51); MONO 16 % (1-9); SEGS 81 % (42-75)
[2019-01-08 08:14] LABS: AGAP 14; ALB/GLOB RATIO 0.9; ALBUMIN 2.8 g/dL (3.5-5.0); ALKALINE PHOSPHATASE 141 U/L (32-122); BUN 25 mg/dL (8-22); CALCIUM 8.5 mg/dL (8.8-10.2); CHLORIDE 90 mmol/L (98-107); COSMO 266; ESTIMATED GFR > 60; GLUCOSE 120 mg/dL (70-104); GOT 17 U/L (10-34); GPT 9 U/L (10-44); MAGNESIUM 1.3 mg/dL (1.5-2.7); PHOSPHORUS 3.7 mg/dL (2.7-4.5); SODIUM 130 mmol/L (136-145); TCO2 26 mmol/L (25-35); TOTAL BILIRUBIN 2.81 mg/dL (0.20-1.00)
--- NOTE | 2019-01-08 08:20 | PROGRESS NOTE ---
DATE: 01/08/2019 SUBJECTIVE: This patient is lying in bed. He is still tachypneic. He is waking up. He is following commands. He is not able to talk. As per the patient, he is not in pain. He is slightly short of breath. No agitation during the night. He has been sedated with the Ativan protocol for signs of withdrawal. We have a negative balance of 6.7 L. I will ask the edge bander operator to evaluate this patient to start feeding this patient through the tube. OBJECTIVE: Vital Signs: Temperature 97.6 degrees, pulse 97, respiratory rate 28, blood pressure 118/79, oxygen saturation 94% on 5 L of nasal cannula. HEENT: Head normocephalic. No trauma. PERRLA. Poor dentition. Neck: Supple. No JVD. No masses. Central trachea. Chest: Decreased breath sounds globally mostly on the on the right side, with some crackles. Abdomen: Soft. Positive bowel sounds. Extremities: Trace to 1+ edema. No clubbing. No cyanosis. He has some redness on his legs, which as per the patient is chronic. Neurological: This patient is sleepy, but arousable. He is not able to talk, even though he is trying, but he is following commands. LABORATORY DATA: WBC 19.8, hemoglobin 16.5, hematocrit 47.8, platelets 140,000. Pending CMP, magnesium, and phosphorus. ASSESSMENT AND PLAN: 1. Atrial fibrillation with rapid ventricular response. This patient has been placed on the Cardizem drip. Cardiology Department following this patient. Will continue to monitor. 2. Likely bibasilar pneumonia. Continue with Rocephin and azithromycin. 3. We have a positive blood culture, 1/ that showed streptococcus mitis and streptococcus oralis, which is sensitive to ceftriaxone, so I will continue with the same management. 4. Bacteremia. We have a positive culture that showed streptococcus mitis and streptococcus oralis, sensitive to ceftriaxone. Will continue with the same management. 5. Hypoxemic respiratory failure. This patient also has emphysema and pneumonia. Continue breathing treatment. Continue to monitor this patient closely. Continue with antibiotics. 6. Alcohol withdrawal symptoms. Continue with Ativan drip. Will continue keeping this patient in the intensive care unit. 7. Elevated D-dimer. CT angiogram showed pleural effusion, mostly on the right side. He has been placed on diuretics. He has a negative balance of more than 6 liters. Cardiology Department on board. 8. Congestive heart failure, likely systolic. Continue with diuretics. 9. Pulmonary hypertension by echocardiogram, aware. Continue with diuretics and breathing treatments. 10. Hypomagnesemia that was replaced yesterday. Pending lab work today. 11. Nutritional status. This patient has been placed on Clinimix. He has a nasogastric tube. I will request an evaluation by the edge bander operator. CRITICAL CARE TIME: 35 minutes. cc: Mor Barajas MD
[2019-01-08] MEDS: LOVENOX SUBQ SCH ×2 (09:01→20:28)
[2019-01-08] MEDS: VITAMIN B-1 PO SCH (09:03)
[2019-01-08] MEDS: LANOXIN PO SCH (09:03)
[2019-01-08] MEDS: FOLIC ACID PO SCH (09:03)
[2019-01-08] MEDS: ZITHROMAX PO SCH (09:03)
[2019-01-08] MEDS: TOPROL XL PO SCH ×2 (09:03→20:28)
--- NOTE | 2019-01-08 09:23 | EKG Report ---
Test Performed on : 01/06/2019 11:38:20 AM Test Reason : CCU. No order in [place] Blood Pressure : / mmHG Vent. Rate : 099 BPM Atrial Rate : 063 BPM P-R Int : 000 ms QRS Dur : 086 ms QT Int : 378 ms P-R-T Axes : 000 126 174 degrees QTc Int : 485 ms Atrial fibrillation. with premature ventricular or aberrantly conducted complexes. Right axis deviation ST & T wave abnormality, consider anterolateral ischemia Prolonged QT Abnormal ECG No previous ECGs available Confirmed by Chato GASCA, Gumaro Gomes ([id number]) on 01/08/2019 9:30:30 AM
[2019-01-08] MEDS: CARDIZEM IV SCH (09:51)
[2019-01-08] MEDS: D5W IV SCH (09:51)
--- NOTE | 2019-01-08 10:18 | Diag Imaging Result Doc PS360 ---
EXAM: CHEST/ABD TUBE PLACEMENT HISTORY: verify NGT placement TECHNIQUE: Chest abdomen single view COMPARISON: 5:10 AM FINDINGS: A nasogastric tube is coiled within the stomach. The heart is enlarged. Electronically signed by Go Darnell 01/08/2019 10:16 AM
[2019-01-08] MEDS: ROCEPHIN 1 GM in NS 50 ML IV SCH (11:21)
[2019-01-08] MEDS: ATIVAN 20 MG in NS 190 ML IV SCH (14:29)
--- NOTE | 2019-01-08 20:07 | PULMONOLOGY PROGRESS NOTE ---
DATE: 01/08/2019 SUBJECTIVE: The patient is somnolent but arousable. He mumbles when questions are asked. OBJECTIVE: Vital Signs: The patient has been afebrile for the last 24 hours. Blood pressure 101/78, heart rate 100, respiration rate 29, oxygen saturation 96% on 5 L per nasal cannula. HEENT: Pupils are equal and reactive. Oropharynx appears clear. Neck: Supple. Chest: Reveals prolonged expiratory phase with decreased breath sounds right base. Cardiac exam: S1, S2. Abdomen: Soft. Extremities: Reveal trace edema. IMAGING: Chest x-ray reveals right-sided pleural effusion without change. IMPRESSION: A 58-year-old with: 1. Acute hypoxemic respiratory failure. 2. Bilateral pleural effusions, right greater than left. 3. Chronic obstructive pulmonary disease. 4. Alcoholism. 5. Delirium tremens. 6. Macrocytosis. 7. Noncompliance. 8. Atrial fibrillation with rapid ventricular response. PLAN: 1. Continue sedation. 2. Continue diuresis as tolerated, although this appears to be decreasing. 3. Continue gastric acid suppression. 4. Counseled about the importance of alcohol cessation if he survives this hospital stay. cc: Mao Burk MD
[2019-01-09] MEDS: ATROVENT NEB INH SCH ×6 (03:25→23:15)
[2019-01-09] MEDS: XOPENEX NEB INH SCH ×6 (03:25→23:15)
[2019-01-09 04:17] LABS: ALLEN TEST YES; BE 4.2 mmoll (-3.0-3.0); BLOOD TYPE ARTERIAL; HCO3-(ACT) 28.1 mmoll (20.0-26.0); METHB 1.1 % (0.0-1.5); O2(CT) 21.4 mL/dL (15.0-23.0); O2HB 94.1 % (95.0-99.0); PCO2(98.6) 36 mmHg (35-45); PO2(98.6) 79 mmHg (60-100); SAMPLE BLOOD; SAO2 97.7 % (95.0-100.0); THB 16.2 g/dL (11.5-17.4); pH(98.6) 7.49 (7.35-7.45)
[2019-01-09 04:18] LABS: MODALITY CANNULA
[2019-01-09] MEDS: LASIX IV SCH ×2 (05:14→17:26)
[2019-01-09] MEDS: CLINIMIX E 4.25%-5% SOLUTION 1,000 ML IV SCH ×2 (05:14→21:37)
[2019-01-09 06:10] LABS: BASO# 0.01 X1000 (0.0-0.2); BASO% 0.1 % (0.0-0.8); HEMATOCRIT 45.6 % (42.0-52.0); HEMOGLOBIN 15.7 g/dL (14.0-18.0); IMM GRAN# 0.06 X1000 (0.0-0.04); IMM GRAN% 0.3 % (0.0-0.5); LYMPH% 2.6 % (20.5-51.1); MCH 34.1 PG (27-31); MCHC 34.4 g/dL (33-37); MCV 98.9 FL (81-99); MONO# 1.95 X1000 (0.11-0.59); MONO% 10.1 % (1.7-9.3); MPV 11.5 FL (7.4-10.4); NEUT# 16.72 X1000 (1.4-6.5); NEUT% 86.9 % (42.2-75.2); PLT 183 X1000 (130-400); RBC 4.61 XMIL (4.7-6.1); RDW 16.3 % (11.5-14.5); WBC 19.24 X1000 (4.8-10.8)
[2019-01-09 06:25] LABS: AGAP 15; ALB/GLOB RATIO 0.7; ALBUMIN 2.2 g/dL (3.5-5.0); ALKALINE PHOSPHATASE 111 U/L (32-122); BUN 35 mg/dL (8-22); CALCIUM 8.3 mg/dL (8.8-10.2); CHLORIDE 91 mmol/L (98-107); COSMO 270; CREATININE 0.9 mg/dL (0.7-1.2); ESTIMATED GFR > 60; GLUCOSE 126 mg/dL (70-104); GOT 14 U/L (10-34); GPT 6 U/L (10-44); MAGNESIUM 1.5 mg/dL (1.5-2.7); PHOSPHORUS 3.8 mg/dL (2.7-4.5); POTASSIUM 3.9 mmol/L (3.5-5.1); SODIUM 130 mmol/L (136-145); TCO2 24 mmol/L (25-35); TOTAL BILIRUBIN 2.32 mg/dL (0.20-1.00); TOTAL PROTEIN 5.4 g/dL (6.3-8.3)
--- NOTE | 2019-01-09 07:13 | Diag Imaging Result Doc PS360 ---
EXAM: CHEST-PORTABLE 01/09/2019 HISTORY: dyspnea TECHNIQUE: AP portable at 0523 COMMENT: There is hazy opacity obscuring the right hemidiaphragm. There is cardiomegaly. There is ill-defined opacity in the left base consistent with pulmonary edema. Compared to 01/08/2019 the opacity in the left base is worse. IMPRESSION: Slightly worsened pulmonary edema plus minus pneumonia. Electronically signed by Shimon Hinson 01/09/2019 7:11 AM
[2019-01-09] MEDS: LOVENOX SUBQ SCH ×2 (08:37→21:37)
[2019-01-09] MEDS: ZITHROMAX PO SCH (08:37)
[2019-01-09] MEDS: LANOXIN PO SCH (08:38)
[2019-01-09] MEDS: VITAMIN B-1 PO SCH (08:38)
[2019-01-09] MEDS: FOLIC ACID PO SCH (08:38)
[2019-01-09] MEDS: TOPROL XL PO SCH (08:38)
--- NOTE | 2019-01-09 09:55 | PROGRESS NOTE ---
DATE: 01/09/2019 HISTORY: Mr. Michael presented on 01/05/2019 with shortness of breath. A 58-year-old gentleman with history of atrial fibrillation, chronic alcohol abuse, congestive heart failure, and chronic shortness of breath presented to the emergency room complaining of increasing shortness of breath. He states that he has been at his baseline for the last year or 2. Over the past few months, he has noted he has had more dyspnea on exertion. He does have chronic lower extremity edema, and usually will resolve by morning after elevation of his legs, but has been more persistent so was admitted with atrial fibrillation and rapid ventricular response on Cardizem drip. He appeared to have pneumonia, and was put on Rocephin and azithromycin. Shortness of breath. Supplement his O2 breathing treatments. History of alcohol abuse, feeling like he is starting to go through withdrawals. History of questionable history of congestive heart failure. He is sleeping at the present time. He has restraints. OBJECTIVE: Temperature 97.6 degrees, pulse 98, respirations 22, and blood pressure 109/70.HEENT: Pupils are equal and round. Lungs: Clear in all lung allen. Cardiovascular: Regular rhythm and rate without murmur or S3. Abdomen: Soft. Skin: Warm and dry. DIAGNOSTIC: Chest x-ray from this morning slightly worsened pulmonary edema, plus minus pneumonia. ASSESSMENT AND PLAN: 1. Acute hypoxemic respiratory failure, bilateral pleural effusions right greater than left underlying COPD going through alcohol withdrawal. Delirium tremens. Continue to diurese. 2. Alcoholism withdrawals, and delirium tremens. 3. Macrocytosis with MCV of 101 to 103. 4. Noncompliance. 5. Atrial fibrillation, rapid ventricular response. Rate appears to be better controlled. REVIEW OF MEDICATIONS: He is on Clinimix 75 mL an hour, azithromycin 500 mg p.o. daily, digoxin 250 mg daily, getting Cardizem drip, Lovenox 70 mg subcutaneous q.12, folic acid 1 mg daily, Lasix 40 mg IV q.12h, hydralazine 10 mg IV q.6 hours p.r.n., ipratropium bromide 0.5 mg inhalation q.4 hours p.r.n., Xopenex 1.25 mg IV q.4 hours, Ativan 2 mg IV q.6 hours p.r.n., metoprolol 50 mg p.o. b.i.d., ceftriaxone 1 g IV q.24 hours, and thiamine 100 mg daily. LABORATORY: White count still elevated at 19,240, hematocrit 45, hemoglobin 15, and platelet count 183,000, and MCV was 98. Sodium 130, potassium 3.9, chloride 91, BUN 35, and creatinine 0.9. cc: Gumaro Reis MD
[2019-01-09] MEDS: CARDIZEM IV SCH (10:50)
[2019-01-09] MEDS: D5W IV SCH (10:50)
[2019-01-09] MEDS: ROCEPHIN 1 GM in NS 50 ML IV SCH (11:15)
[2019-01-09] MEDS: ATIVAN IV PRN ×2 (11:16→15:35)
--- NOTE | 2019-01-09 14:15 | PULMONOLOGY PROGRESS NOTE ---
DATE: 01/09/2019 SUBJECTIVE: The patient does arouse when I call his name. He attempts to speak. He has a fair cough effort. He has psychomotor retardation, but does not follow commands. OBJECTIVE: Vital Signs: The patient has been afebrile for the last 24 hours. Blood pressure 110/88, heart rate 100, respiratory rate 34, oxygen saturation 93% on nasal cannula. HEENT: Pupils are equal and reactive. Oropharynx appears clear but dry. Neck is supple. Chest reveals coarse rhonchi bilaterally. Cardiac exam S1-S2. Abdomen is soft with good bowel sounds. Extremities reveal trace edema. LABORATORIES: Arterial blood gas on 5 L per nasal cannula reveals pH of 7.49, pCO2 of 36, PO2 of 79. White blood count 19.2, hemoglobin 15.7, platelet count 183,000. Chest x-ray reveals pleural effusion/infiltrate at the right base with slight increased infiltrate at the left base. IMPRESSION: A 58-year-old with: 1. Acute hypoxemic respiratory failure. 2. Chronic obstructive pulmonary disease. 3. Bilateral pleural effusions. 4. Alcoholism with delirium tremens. 5. Macrocytosis. 6. Atrial fibrillation with rapid ventricular response. 7. Medical noncompliance. He may be developing a small infiltrate at the left base. RECOMMENDATIONS: 1. Continue treatment for alcohol withdrawal syndrome. He is currently on a protocol. 2. Continue broad-spectrum antibiotics. 3. Continue rate control for atrial fibrillation. 4. Continue current nutrition pending improvement in p.o. intake. cc: Mao Burk MD
[2019-01-09] MEDS: TYLENOL PO PRN (15:35)
[2019-01-10] MEDS: TOPROL XL PO SCH ×3 (00:19→20:48)
[2019-01-10] MEDS: XOPENEX NEB INH SCH ×6 (03:15→23:39)
[2019-01-10] MEDS: ATROVENT NEB INH SCH ×6 (03:15→23:39)
[2019-01-10] MEDS: ATIVAN IV PRN (05:39)
[2019-01-10] MEDS: LASIX IV SCH ×2 (05:39→18:03)
[2019-01-10] MEDS: D5W IV SCH ×2 (05:40→19:23)
[2019-01-10] MEDS: CARDIZEM IV SCH ×2 (05:40→19:23)
[2019-01-10] MEDS: TYLENOL PO PRN ×2 (05:45→20:48)
[2019-01-10 06:27] LABS: BASO# 0.01 X1000 (0.0-0.2); BASO% 0.1 % (0.0-0.8); EOS# 0.05 X1000 (0.0-0.7); EOS% 0.3 % (0.0-10.0); HEMATOCRIT 43.9 % (42.0-52.0); HEMOGLOBIN 15.3 g/dL (14.0-18.0); IMM GRAN# 0.03 X1000 (0.0-0.04); IMM GRAN% 0.2 % (0.0-0.5); LYMPH# 0.51 X1000 (1.2-3.4); LYMPH% 3.4 % (20.5-51.1); MCH 34.7 PG (27-31); MCHC 34.9 g/dL (33-37); MCV 99.5 FL (81-99); MONO% 8.6 % (1.7-9.3); MPV 10.8 FL (7.4-10.4); NEUT# 13.14 X1000 (1.4-6.5); NEUT% 87.4 % (42.2-75.2); PLT 179 X1000 (130-400); RBC 4.41 XMIL (4.7-6.1); RDW 16.1 % (11.5-14.5); WBC 15.04 X1000 (4.8-10.8)
--- NOTE | 2019-01-10 08:06 | Diag Imaging Result Doc PS360 ---
EXAM: CHEST-PORTABLE INDICATION: poss ARDS TECHNIQUE: 2 views COMPARISON: 01/09/2019 FINDINGS: The NG tube is in stable position. The right costophrenic angle is out of the [id number]. The consolidation at the right lung base is stable. No new consolidations identified. Cardiac silhouette is stable. IMPRESSION: Stable chest. Electronically signed by Gallo Downs 01/10/2019 7:22 AM
[2019-01-10 08:09] LABS: AGAP 13; BUN 47 mg/dL (8-22); CALCIUM 8.3 mg/dL (8.8-10.2); CHLORIDE 90 mmol/L (98-107); COSMO 276; CREATININE 0.9 mg/dL (0.7-1.2); ESTIMATED GFR > 60; GLUCOSE 110 mg/dL (70-104); POTASSIUM 4.5 mmol/L (3.5-5.1); SODIUM 131 mmol/L (136-145); TCO2 28 mmol/L (25-35)
[2019-01-10 08:10] LABS: BANDS 9 % (0-1); LYMPHS 6 % (21-51); MONO 6 % (1-9); SEGS 79 % (42-75)
[2019-01-10] MEDS: VITAMIN B-1 PO SCH (08:36)
[2019-01-10] MEDS: LOVENOX SUBQ SCH ×2 (08:37→20:48)
[2019-01-10] MEDS: FOLIC ACID PO SCH (08:37)
[2019-01-10] MEDS: LANOXIN PO SCH (08:37)
--- NOTE | 2019-01-10 09:16 | PROGRESS NOTE ---
DATE: 01/10/2019 SUBJECTIVE: Mr. Michael is still very lethargic. I am not sure he is oriented to place or time. Requires restraints. OBJECTIVE: Vital Signs: Temperature 99.8 degrees, pulse 100, respirations 30, blood pressure 132/82. Lungs: Clear in all lung allen. Cardiovascular exam: Regular rhythm and rate without murmur or S3. Abdomen: Soft. Skin: Warm and dry. : Urine output is 2300 mL. X-RAYS: Chest x-ray: Stable chest. NG tube in stable position. Right costovertebral angle is out of the field of view. Consolidation in the right lung base is stable. No new consolidation appreciated. ASSESSMENT AND PLAN: 1. Acute hypoxemic respiratory failure with chronic obstructive pulmonary disease, bilateral pleural effusion. 2. Alcoholism with delirium tremens. 3. Macrocytosis. 4. Atrial fibrillation, rapid ventricular response. Rate is controlled. 5. Medical noncompliance. Been developing small infiltrate in the left base. So we will continue broad-spectrum antibiotics. Treatment for withdrawal, control rate with atrial fibrillation. LABORATORY DATA: Lab from today: White count is down a little bit to 15,040, hematocrit is 43, platelet count 179,000. Sodium 139, potassium 4.5, chloride 90. BUN 47, creatinine 0.9. cc: Gumaro Reis MD
[2019-01-10] MEDS: CLINIMIX E 4.25%-5% SOLUTION 1,000 ML IV SCH (10:56)
[2019-01-10] MEDS: ROCEPHIN 1 GM in NS 50 ML IV SCH (11:13)
--- NOTE | 2019-01-10 20:57 | PULMONOLOGY PROGRESS NOTE ---
DATE: 01/10/2019 SUBJECTIVE: The patient does arouse to stimulation. He attempts to talk. He has less work of breathing today. OBJECTIVE: Vital Signs: Maximum temperature in the last 24 hours is 101.2 degrees, current temperature 99 degrees, BP 147/88, heart rate 118, respiratory rate 30. Oxygen saturation 93% on nasal cannula. HEENT: Pupils are equal and reactive. Oropharynx is clear, but dry. Neck: Supple. Chest: Chest reveals coarse rhonchi bilaterally. Cardiac: S1, S2. Abdomen: Soft. Extremities: Reveal trace edema. LABORATORIES: Chest x-ray reveals stable basilar infiltrates, right greater than left. White blood count 15.0, hemoglobin 15.3, platelet count 179,000. Sodium 131, potassium 4.5, chloride 90, bicarbonate 28, BUN 47, creatinine 0.9. IMPRESSION: A 58-year-old with: 1. Acute hypoxemic respiratory failure. 2. Pneumonia, with effusions. 3. Chronic obstructive pulmonary disease. 4. Delirium tremens. 5. Macrocytosis. 6. Atrial fibrillation. 7. Medical noncompliance. PLAN: 1. Continue protocol for withdrawal syndrome and complete as per routine. 2. Continue broad-spectrum antibiotics. 3. Continue rate control for atrial fibrillation. 4. Begin diet as he will tolerate p.o. intake. cc: Mao Burk MD
[2019-01-11] MEDS: XOPENEX NEB INH SCH ×6 (02:53→23:30)
[2019-01-11] MEDS: ATROVENT NEB INH SCH ×6 (02:53→23:30)
[2019-01-11] MEDS: LASIX IV SCH ×2 (06:29→17:03)
[2019-01-11] MEDS: CARDIZEM IV SCH ×2 (06:30→17:03)
[2019-01-11] MEDS: D5W IV SCH ×2 (06:30→17:03)
[2019-01-11] MEDS: TOPROL XL PO SCH ×2 (08:37→20:00)
[2019-01-11] MEDS: FOLIC ACID PO SCH (08:37)
[2019-01-11] MEDS: VITAMIN B-1 PO SCH (08:37)
[2019-01-11] MEDS: LANOXIN PO SCH (08:37)
[2019-01-11] MEDS: LOVENOX SUBQ SCH ×2 (08:38→20:00)
--- NOTE | 2019-01-11 08:39 | PROGRESS NOTE ---
DATE: 01/11/2019 SUBJECTIVE: Mr. Michael is awake. He is still pretty lethargic. Does not appear to be in any distress. The monitor shows atrial fibrillation, rate still running around 90 to 110. Remains afebrile. OBJECTIVE: Temperature 99.0 degrees, pulse 92, respirations 32, blood pressure 138/81. Pupils are equal and round. Lungs are clear in all lung allen. Cardiovascular Examination: Regular rhythm and rate without murmur or S3. Abdomen is soft. Skin is warm and dry. Weight 166 pounds. Urine output is 3500 mL. No new laboratory data this morning. ASSESSMENT AND PLAN: 1. Acute hypoxemic respiratory failure, pneumonia with effusions, underlying chronic obstructive pulmonary disease, chronic obstructive pulmonary disease exacerbation. Continue present antibiotics, bronchodilators, and continue broad-spectrum antibiotic. 2. Atrial fibrillation. Try to continue to control rate. He is going through alcohol withdrawals. Delirium tremens seem to be improving. 3. Delirium tremens. 4. Alcohol use and abuse. 5. Lab reviewed from yesterday. White count is still elevated. Electrolytes reviewed from yesterday. I think the lab is pending for this morning, although I am not sure it was ordered, so we will order a Chem-22, magnesium, CBC. Note that his prealbumin was 3.8 so protein calorie malnutrition is significant. B12 and folate look normal. TSH was 3.47 back on 01/05/2019. cc: Gumaro Reis MD
[2019-01-11 09:52] LABS: BASO# 0.01 X1000 (0.0-0.2); EOS# 0.01 X1000 (0.0-0.7); HEMOGLOBIN 14.5 g/dL (14.0-18.0); IMM GRAN# 0.08 X1000 (0.0-0.04); IMM GRAN% 0.4 % (0.0-0.5); LYMPH# 0.37 X1000 (1.2-3.4); LYMPH% 1.8 % (20.5-51.1); MCHC 35.4 g/dL (33-37); MCV 96.2 FL (81-99); MONO# 2.22 X1000 (0.11-0.59); MONO% 10.7 % (1.7-9.3); MPV 10.9 FL (7.4-10.4); NEUT# 18.02 X1000 (1.4-6.5); NEUT% 87.1 % (42.2-75.2); PLT 198 X1000 (130-400); RBC 4.26 XMIL (4.7-6.1); RDW 16.2 % (11.5-14.5); WBC 20.71 X1000 (4.8-10.8)
[2019-01-11 10:03] LABS: ESTIMATED GFR > 60
[2019-01-11 10:17] LABS: AGAP 13; ALB/GLOB RATIO 0.5; ALBUMIN 2.1 g/dL (3.5-5.0); ALKALINE PHOSPHATASE 143 U/L (32-122); BUN 40 mg/dL (8-22); CHLORIDE 89 mmol/L (98-107); COSMO 277; CREATININE 0.9 mg/dL (0.7-1.2); GLUCOSE 148 mg/dL (70-104); GOT 40 U/L (10-34); GPT 20 U/L (10-44); MAGNESIUM 1.7 mg/dL (1.5-2.7); POTASSIUM 4.2 mmol/L (3.5-5.1); SODIUM 132 mmol/L (136-145); TCO2 30 mmol/L (25-35); TOTAL BILIRUBIN 1.91 mg/dL (0.20-1.00); TOTAL PROTEIN 6.3 g/dL (6.3-8.3)
[2019-01-11 10:24] LABS: ANISOCYTOSIS 2+; BANDS 6 % (0-1); LARGE PLATELETS 1+; LYMPHS 1 % (21-51); MONO 10 % (1-9); SEGS 83 % (42-75)
[2019-01-11] MEDS: ROCEPHIN 1 GM in NS 50 ML IV SCH (11:10)
--- NOTE | 2019-01-11 11:47 | PULMONOLOGY PROGRESS NOTE ---
DATE: 01/11/2019 SUBJECTIVE: The patient arouses to stimuli. He mumbles, but does not answer questions appropriately. OBJECTIVE: Vital Signs: Maximum temperature in the last 24 hours 100.8 degrees. BP 126/85, heart rate 100, respiration rate 27 and unlabored, oxygen saturation 92% on 5 L per nasal cannula. HEENT: Pupils are equal and reactive. Oropharynx appears dry. Neck: Neck is supple. Chest: Reveals coarse rhonchi bilaterally. Cardiac exam: S1, S2. Abdomen: Abdomen is soft. Extremities: Reveal trace edema. LABORATORIES: Sodium 132, potassium 4.2, chloride 89, bicarbonate 30. BUN 40, creatinine 0.9, bilirubin 1.9. White blood count 20,000, hemoglobin 14.5, platelet count 198,000. IMPRESSION: A 58-year-old with: 1. Acute hypoxemic respiratory failure. 2. Pneumonia with leukocytosis. 3. Pleural effusions. 4. Chronic obstructive pulmonary disease. 5. Alcohol withdrawal syndrome. 6. Atrial fibrillation. 7. Medical noncompliance. RECOMMENDATIONS: 1. Continue nutrition. 2. Attempt to decrease sedation. 3. Continue rate control. 4. Delay diet until he is more awake and alert. 5. Follow up chest x-ray tomorrow morning. cc: Mao Burk MD
[2019-01-11 11:57] LABS: URINE SOURCE CATH
[2019-01-11 12:10] LABS: BILIRUBIN URINE NEGATIVE (NEGATIVE); BLOOD URINE MODERATE (NEGATIVE); COLOR YELLOW; GLUCOSE URINE NEGATIVE (NEGATIVE); KETONE URINE NEGATIVE (NEGATIVE); LEUKOCYTES URINE SMALL (NEGATIVE); NITRITE URINE NEGATIVE (NEGATIVE); PROTEIN URINE 30 mg/dL (NEGATIVE); SP GRAVITY URINE 1.018; TURBIDITY URINE CLEAR (CLEAR); UROBILINOGEN URINE 4 mg/dL (NORMAL)
[2019-01-11 12:14] LABS: UR EPITHELIAL CELLS <10 /HPF (<10); URINE BACTERIA NEGATIVE /HPF; URINE WBC <10 /HPF (<10)
[2019-01-11 12:35] LABS: URINE CRYSTALS NONE SEEN
[2019-01-11] MEDS: APRESOLINE IV PRN (17:35)
[2019-01-11] MEDS: TYLENOL PO PRN (19:56)
[2019-01-12] MEDS: CARDIZEM IV SCH ×2 (00:57→13:25)
[2019-01-12] MEDS: D5W IV SCH ×2 (00:57→13:25)
[2019-01-12] MEDS: ATROVENT NEB INH SCH ×6 (03:30→23:10)
[2019-01-12] MEDS: XOPENEX NEB INH SCH ×6 (03:30→23:10)
[2019-01-12 04:51] LABS: ALLEN TEST YES; BE 10.6 mmoll (-3.0-3.0); BLOOD TYPE ARTERIAL; HCO3-(ACT) 32.9 mmoll (20.0-26.0); METHB 0.9 % (0.0-1.5); O2(CT) 19.5 mL/dL (15.0-23.0); PCO2(98.6) 40 mmHg (35-45); PO2(98.6) 53 mmHg (60-100); SAMPLE BLOOD; SAO2 92.9 % (95.0-100.0); THB 15.5 g/dL (11.5-17.4); pH(98.6) 7.54 (7.35-7.45)
[2019-01-12 04:56] LABS: MODALITY CANNULA; O2HB 89.7 % (95.0-99.0)
[2019-01-12] MEDS: LASIX IV SCH (05:02)
[2019-01-12] MEDS: ATIVAN IV PRN (05:13)
--- NOTE | 2019-01-12 07:05 | Diag Imaging Result Doc PS360 ---
EXAM: CHEST-PORTABLE 01/12/2019 HISTORY: abnormal exam TECHNIQUE: AP portable at 0546 COMMENT: There is cardiomegaly. There is ill-defined opacity in the right lower lobe which was also present on 01/10/2019. There may be a mild degree of interstitial pulmonary edema. There is an NG tube which passes into the stomach. IMPRESSION: Pulmonary edema. Right lower lobe pneumonia. Electronically signed by Shimon Hinson 01/12/2019 7:03 AM
[2019-01-12] MEDS: LANOXIN PO SCH (08:04)
[2019-01-12] MEDS: VITAMIN B-1 PO SCH (08:05)
[2019-01-12] MEDS: FOLIC ACID PO SCH (08:05)
[2019-01-12] MEDS: TOPROL XL PO SCH ×2 (08:05→21:02)
[2019-01-12] MEDS: LOVENOX SUBQ SCH ×2 (08:05→21:02)
[2019-01-12] MEDS: TYLENOL PO PRN (08:19)
[2019-01-12] MEDS ORDERED: VANCOMYCIN IV PER PHARMACY MISC SCH (10:00)
[2019-01-12] MEDS: MAXIPIME 2 GM in NS 100 ML IV SCH ×2 (10:06→21:02)
--- NOTE | 2019-01-12 10:10 | PROGRESS NOTE ---
DATE: 01/12/2019 SUBJECTIVE: Mr. Michael is still pretty lethargic. OBJECTIVE: He did spike a temp 101.6 degrees, pulse 100 respirations 28 blood pressure 104/66. Pupils are equal round. Lungs are clear in all lung allen. Cardiovascular regular rate without murmur or S3. Urine output is 3800 mL. IMAGING: Chest x-ray: Pulmonary edema right lower lobe pneumonia. ASSESSMENT/PLAN: 1. Acute hypoxemic respiratory failure, pleural effusions, exacerbation of underlying chronic obstructive pulmonary disease. Continue antibiotics. Pulmonary toilet. 2. Alcohol withdrawal syndrome. I think he is probably coming out of delirium tremens. Still pretty lethargic. 3. Atrial fibrillation. Rate is controlled. Review of his orders: He is on ceftriaxone 1 gram every 24 hours. He has spiked a temperature. I think I am going to expand his antibiotics. We will put him on cefepime and vancomycin. cc: Gumaro Reis MD
[2019-01-12] MEDS ORDERED: VANCOMYCIN 2.4 GM in NS 500 ML IV ONE (12:00)
[2019-01-12] MEDS: ULTRAM PO PRN (13:24)
[2019-01-12 15:20] LABS: ESTIMATED GFR > 60
[2019-01-12 15:21] LABS: AGAP 17; ALB/GLOB RATIO 0.8; ALBUMIN 2.3 g/dL (3.5-5.0); ALKALINE PHOSPHATASE 174 U/L (32-122); BUN 43 mg/dL (8-22); CALCIUM 8.3 mg/dL (8.8-10.2); CHLORIDE 87 mmol/L (98-107); COSMO 281; CREATININE 0.9 mg/dL (0.7-1.2); GLUCOSE 141 mg/dL (70-104); GOT 32 U/L (10-34); GPT 19 U/L (10-44); SODIUM 134 mmol/L (136-145); TCO2 30 mmol/L (25-35); TOTAL BILIRUBIN 2.09 mg/dL (0.20-1.00); TOTAL PROTEIN 5.1 g/dL (6.3-8.3)
--- NOTE | 2019-01-12 15:56 | Extremity Venous Study ---
PROCEDURE NAME: Venous U/S Bilateral Arms - 01/12/2019 PROCEDURE: Venous imaging of the arm. DESCRIPTION OF PROCEDURE IN DETAIL: The patient has edema and pain in the arms. Both arms were imaged. The internal jugular, subclavian, axillary, brachial, basilic, cephalic veins are imaged. There is echogenicity within the right basilic vein in the forearm. INTERPRET: The patient has had an IV in the forearm. ASSESSMENT: Acute superficial venous thrombosis of the right basilic vein and the right forearm. All other veins are compressible. There is no evidence of deep vein thrombosis. cc: MD Gumaro Campbell MD
[2019-01-12] MEDS ORDERED: D5 NS 1,000 ML IV SCH (16:15)
--- NOTE | 2019-01-12 17:16 | PULMONOLOGY PROGRESS NOTE ---
DATE: 01/12/2019 SUBJECTIVE: The patient will open his eyes to voice and stimuli. He will not follow commands. OBJECTIVE: Vital Signs: Maximum temperature in the last 24 hours 101.6 degrees, heart rate 91, respiratory rate 24, oxygen saturation 94% on 50% face mask. HEENT: Pupils are equal. Oropharynx is dry. Neck: Supple. Chest: Reveals shallow breath sounds with occasional rhonchi. Cardiac exam: S1, S2. Abdomen: Soft. Extremities: Without edema. LABORATORIES: Chest x-ray reveals generous cardiac silhouette, stable changes at the right base. Sodium 134, potassium 4.0, chloride 87, bicarbonate 30, BUN 43, creatinine 0.9, glucose 141, bilirubin 2.09, ammonia 27. White blood count not obtained today. Urinalysis yesterday clear. Less than 10 white blood cells per high-power field. IMPRESSION: A 58-year-old with 1. Hypoxemic respiratory failure which is acute. 2. Pneumonia with leukocytosis. 3. Pleural effusions. 4. Chronic obstructive pulmonary disease. 5. Atrial fibrillation. 6. Alcohol withdrawal syndrome. DISCUSSION: A 58-year-old with problems outlined above. His mental status remains poor. He has a poor cough effort, making it difficult to clear his pneumonia. He has started having some fevers. Clinically, he appears to be dry. RECOMMENDATIONS: 1. Volume bolus this afternoon. 2. Continue tube feeds pending improvement in mental status. 3. Continue cardiac rate control. 4. Continue ICU monitoring. The patient is at risk for progressive respiratory failure requiring intubation given his poor mental status. cc: Mao Burk MD
[2019-01-12] MEDS: COLCRYS PO SCH (21:02)
[2019-01-13] MEDS: TYLENOL PO PRN ×2 (00:21→08:52)
[2019-01-13] MEDS: ATROVENT NEB INH SCH ×6 (03:49→23:44)
[2019-01-13] MEDS: XOPENEX NEB INH SCH ×6 (03:49→23:44)
[2019-01-13 04:43] LABS: ALLEN TEST YES; BE 10.5 mmoll (-3.0-3.0); BLOOD TYPE ARTERIAL; HCO3-(ACT) 33.1 mmoll (20.0-26.0); METHB 1.1 % (0.0-1.5); O2(CT) 13.7 mL/dL (15.0-23.0); O2HB 94.2 % (95.0-99.0); PCO2(98.6) 46 mmHg (35-45); PO2(98.6) 69 mmHg (60-100); SAMPLE BLOOD; SAO2 97.3 % (95.0-100.0); THB 10.3 g/dL (11.5-17.4); pH(98.6) 7.49 (7.35-7.45)
[2019-01-13 04:50] LABS: MODALITY VENTIMASK
[2019-01-13 05:20] LABS: BASO# 0.01 X1000 (0.0-0.2); BASO% 0.1 % (0.0-0.8); EOS# 0.01 X1000 (0.0-0.7); EOS% 0.1 % (0.0-10.0); HEMOGLOBIN 13.8 g/dL (14.0-18.0); IMM GRAN% 0.5 % (0.0-0.5); LYMPH# 0.71 X1000 (1.2-3.4); LYMPH% 3.6 % (20.5-51.1); MCH 34.1 PG (27-31); MCHC 35.4 g/dL (33-37); MCV 96.3 FL (81-99); MONO# 1.91 X1000 (0.11-0.59); MONO% 9.6 % (1.7-9.3); MPV 11.7 FL (7.4-10.4); NEUT# 17.22 X1000 (1.4-6.5); NEUT% 86.1 % (42.2-75.2); PLT 222 X1000 (130-400); RBC 4.05 XMIL (4.7-6.1); RDW 16.5 % (11.5-14.5); WBC 19.96 X1000 (4.8-10.8)
[2019-01-13] MEDS: CARDIZEM IV SCH ×2 (05:24→22:36)
[2019-01-13] MEDS: D5W IV SCH ×2 (05:24→22:36)
[2019-01-13] MEDS: VANCOMYCIN 2 GM in NS 500 ML IV SCH (05:25)
[2019-01-13] MEDS: ULTRAM PO PRN ×3 (05:29→21:32)
[2019-01-13 05:40] LABS: AGAP 11; ALB/GLOB RATIO 0.4; ALBUMIN 1.7 g/dL (3.5-5.0); ALKALINE PHOSPHATASE 172 U/L (32-122); BUN 40 mg/dL (8-22); CALCIUM 8.5 mg/dL (8.8-10.2); CHLORIDE 96 mmol/L (98-107); COSMO 287; CREATININE 0.6 mg/dL (0.7-1.2); ESTIMATED GFR > 60; GLUCOSE 155 mg/dL (70-104); GOT 36 U/L (10-34); GPT 20 U/L (10-44); POTASSIUM 3.6 mmol/L (3.5-5.1); SODIUM 137 mmol/L (136-145); TCO2 30 mmol/L (25-35); TOTAL BILIRUBIN 1.49 mg/dL (0.20-1.00); TOTAL PROTEIN 5.8 g/dL (6.3-8.3)
[2019-01-13 06:32] LABS: BANDS 1 % (0-1); BASO 1 % (0-1); LYMPHS 2 % (21-51); MONO 8 % (1-9); SEGS 86 % (42-75)
--- NOTE | 2019-01-13 08:44 | PROGRESS NOTE ---
DATE: 01/13/2019 SUBJECTIVE: Mr. Michael is still lethargic and he is sleeping sound at the present time, comfortable. OBJECTIVE: Vital Signs: Temperature 100.1 degrees, pulse 94, respirations 18, blood pressure 127/74. Eyes: Pupils are equal and round. Lungs: Clear in all lung allen. Cardiovascular exam: Regular rhythm and rate without murmur or S3. Abdomen: Soft. Skin: Warm and dry. : Urine output is 1900 mL. ASSESSMENT AND PLAN: 1. Hypoxemic respiratory failure which is acute. He has underlying pneumonia with leukocytosis and pleural effusions, chronic obstructive pulmonary disease exacerbation. Continue his supplementary oxygen and ventilation. Hopefully, will be able to wean him off the ventilator. 2. Atrial fibrillation. Still in atrial fibrillation. Ventricular rate is controlled. 3. Acute alcohol withdrawal syndrome, which I think he should be getting past at this point. REVIEW OF HIS ORDERS: 1. He is on colchicine 0.6 mg p.o. b.i.d. He was having some pain in his left wrist. 2. Digoxin 250 mcg p.o. daily. He is on Lovenox 70 mg subcutaneous q. 12 hours, folic acid 1 mg daily Lasix 40 mg a day, ipratropium bromide 0.5 mg q. 4 hours, lactulose 30 mL b.i.d. He is getting cefepime 2 g IV q. 12 hours,metoprolol succinate 50 mg p.o. b.i.d., tramadol 50 mg p.o. q. 6 hours, vancomycin 2 g IV q. 18 hours. LABS: We will check some lab this morning. Note, his white count was 19,960, hematocrit is 39, platelet count 222,000. Sodium 137, potassium 3.6, chloride 96, BUN 40, creatinine 0.6. AST was 36, ALT 20, total bilirubin 1.49. cc: Gumaro Reis MD
--- NOTE | 2019-01-13 08:45 | PROGRESS NOTE ---
DATE: 01/13/2019 ADDENDUM: Of note, he is on supplementary non-rebreather. He is off the ventilator. We will continue to try and improve his air and gas exchange. His white count is still elevated. I suspect he is still battling pneumonia. We will repeat another chest x-ray this morning. His chest x-ray from yesterday: Pulmonary edema and right lower lobe pneumonia. cc: Gumaro Reis MD
[2019-01-13] MEDS: LASIX IV SCH (08:52)
[2019-01-13] MEDS: LACTULOSE PO SCH ×2 (08:52→21:32)
[2019-01-13] MEDS: FOLIC ACID PO SCH (08:52)
[2019-01-13] MEDS: TOPROL XL PO SCH ×2 (08:52→21:32)
[2019-01-13] MEDS: COLCRYS PO SCH ×2 (08:52→21:32)
[2019-01-13] MEDS: LANOXIN PO SCH (08:52)
[2019-01-13] MEDS: MIRALAX PO SCH (08:52)
[2019-01-13] MEDS: LOVENOX SUBQ SCH ×2 (08:52→21:32)
[2019-01-13] MEDS: VITAMIN B-1 PO SCH (08:52)
[2019-01-13] MEDS: MAXIPIME 2 GM in NS 100 ML IV SCH ×2 (08:59→21:33)
--- NOTE | 2019-01-13 09:39 | Diag Imaging Result Doc PS360 ---
EXAM: CHEST-PORTABLE 01/13/2019 HISTORY: pneumonia TECHNIQUE: AP portable at 0928 COMMENT: There is cardiomegaly. There is hazy opacity in the right lower lobe which is slightly worse than on 01/12/2019. The left lung is stable in appearance and appears clear. IMPRESSION: Worsening pneumonia in the right lower lobe. Cardiomegaly. Electronically signed by Shimon Hinson 01/13/2019 9:36 AM
[2019-01-13] MEDS: SOLU-MEDROL IV SCH ×2 (11:02→19:40)
--- NOTE | 2019-01-13 14:42 | PULMONOLOGY PROGRESS NOTE ---
DATE: 01/13/2019 SUBJECTIVE: The patient is more awake today. He does answer 1 to 2 questions. He is in severe pain with any movement of his joints. He has a weak cough effort. OBJECTIVE: Vital Signs: Maximum temperature in the last 24 hours is 100.2 degrees. Current temperature 99.4 degrees, BP 119/80, heart rate 87, respiratory rate 24, oxygen saturation 94%. HEENT: Pupils are equal and reactive. Oropharynx appears clear. Neck: Supple. Chest: Reveals decreased breath sounds, right greater than left base, with occasional rhonchi. Cardiac exam: S1, S2. Abdomen: Soft with positive bowel sounds. Extremities: Reveal pain in both wrist joints and with movement of the arms or flexion of the knees. LABORATORIES: White blood count 9.96, hemoglobin 13.8, platelet count 222,000. Arterial blood gas reveals pH 7.49, pCO2 of 46, pO2 of 69. Sodium 137, potassium 3.6, chloride 96, bicarbonate 30. BUN 40, creatinine 0.6, glucose 155, albumin 1.7. X-RAYS: Chest x-ray: Slight increased haziness, right base. IMPRESSION: A 58-year-old with: 1. Hypoxemic respiratory failure (acute). 2. Pneumonia with leukocytosis. 3. Pleural effusions. 4. Chronic obstructive pulmonary disease. 5. Joint pain, infectious/inflammatory/reactive. The patient's uric acid is elevated. 6. Atrial fibrillation. 7. Alcohol withdrawal syndrome with marginal improvement. PLAN: 1. Continue current antibiotics. 2. Encourage bronchial hygiene. 3. Agree with initiation of gout. 4. Medications: We will give 3 doses of Solu-Medrol given intense arthritic pain. 5. Continue ICU monitoring. He is marginally improved, but remains at risk for progressive respiratory failure requiring intubation. cc: Mao Burk MD
[2019-01-13] MEDS: ATIVAN IV PRN (23:43)
[2019-01-14] MEDS: VANCOMYCIN 2 GM in NS 500 ML IV SCH ×2 (00:48→18:25)
[2019-01-14] MEDS: SOLU-MEDROL IV SCH (03:21)
[2019-01-14] MEDS: XOPENEX NEB INH SCH ×6 (03:52→23:22)
[2019-01-14] MEDS: ATROVENT NEB INH SCH ×6 (03:52→23:22)
[2019-01-14 05:13] LABS: ALLEN TEST YES; BE 8.5 mmoll (-3.0-3.0); BLOOD TYPE ARTERIAL; HCO3-(ACT) 31.5 mmoll (20.0-26.0); METHB 0.8 % (0.0-1.5); O2(CT) 20.2 mL/dL (15.0-23.0); O2HB 95.1 % (95.0-99.0); PCO2(98.6) 46 mmHg (35-45); PO2(98.6) 80 mmHg (60-100); SAMPLE BLOOD; THB 15.1 g/dL (11.5-17.4); pH(98.6) 7.47 (7.35-7.45)
[2019-01-14 05:36] LABS: MODALITY VENTIMASK
[2019-01-14] MEDS: ATIVAN IV PRN (05:38)
[2019-01-14 05:48] LABS: HEMATOCRIT 43.2 % (42.0-52.0); HEMOGLOBIN 14.8 g/dL (14.0-18.0); MCH 34.3 PG (27-31); MCHC 34.3 g/dL (33-37); MPV 12.4 FL (7.4-10.4); RBC 4.32 XMIL (4.7-6.1); RDW 17.1 % (11.5-14.5); WBC 16.16 X1000 (4.8-10.8)
[2019-01-14 06:11] LABS: AGAP 13; ALB/GLOB RATIO 0.4; ALBUMIN 1.7 g/dL (3.5-5.0); ALKALINE PHOSPHATASE 208 U/L (32-122); BUN 45 mg/dL (8-22); CALCIUM 9.1 mg/dL (8.8-10.2); CHLORIDE 97 mmol/L (98-107); COSMO 297; CREATININE 0.6 mg/dL (0.7-1.2); ESTIMATED GFR > 60; GLUCOSE 235 mg/dL (70-104); GOT 38 U/L (10-34); GPT 30 U/L (10-44); POTASSIUM 3.7 mmol/L (3.5-5.1); SODIUM 139 mmol/L (136-145); TCO2 29 mmol/L (25-35); TOTAL BILIRUBIN 1.04 mg/dL (0.20-1.00)
[2019-01-14] MEDS: LASIX IV SCH (09:20)
[2019-01-14] MEDS: MIRALAX PO SCH (09:20)
[2019-01-14] MEDS: LOVENOX SUBQ SCH ×2 (09:20→21:44)
[2019-01-14] MEDS: COLCRYS PO SCH ×2 (09:21→21:44)
[2019-01-14] MEDS: LANOXIN PO SCH (09:21)
[2019-01-14] MEDS: FOLIC ACID PO SCH (09:21)
[2019-01-14] MEDS: LACTULOSE PO SCH ×2 (09:21→21:44)
[2019-01-14] MEDS: VITAMIN B-1 PO SCH (09:21)
[2019-01-14] MEDS: MAXIPIME 2 GM in NS 100 ML IV SCH ×2 (09:22→21:44)
[2019-01-14] MEDS: TOPROL XL PO SCH ×2 (09:22→21:44)
[2019-01-14] MEDS: ULTRAM PO PRN (10:12)
--- NOTE | 2019-01-14 15:36 | PULMONOLOGY PROGRESS NOTE ---
DATE: 01/14/2019 SUBJECTIVE: The patient is awake and alert. He responds to questions more quickly than the day before. He reports he is "doing okay." OBJECTIVE: Vital Signs: Patient has been afebrile for the last 24 hours, blood pressure 149/96, heart rate 88, respiratory rate 18, oxygen saturation 96% on 50% face mask. HEENT: Pupils are equal and reactive. Oropharynx appears clear. Neck: Supple. Chest: Reveals occasional rhonchi bilaterally with decreased breath sounds, right base. Cardiac exam: Irregular rhythm. Normal S1, normal S2. Abdomen: Soft. Extremities: Reveal trace of edema. LABORATORIES: White blood count 16.16, hemoglobin 14.4, platelet count 274,000. Arterial blood gas reveals pH 7.47, pCO2 of 46, pO2 of 80 on 50% Venturi mask. Sodium 139, potassium 3.7, chloride 97, BUN 45, creatinine 0.6. X-RAYS: There is no new chest x-ray dated today. IMPRESSION: A 58-year-old with: 1. Acute hypoxemic respiratory failure. 2. Pneumonia. 3. Pleural effusions. 4. Chronic obstructive pulmonary disease. 5. Polyarticular joint pain. 6. Atrial fibrillation. 7. Alcohol withdrawal with slow improvement. PLAN: 1. Continue current antibiotic regimen. 2. Continue bronchial hygiene. 3. Wean oxygen as tolerated. 4. Two-view chest x-ray tomorrow. If patient remains stable, he should be a good candidate for transfer out of the ICU. cc: Mao Burk MD
--- NOTE | 2019-01-14 15:43 | PROGRESS NOTE ---
DATE: 01/14/2019 SUBJECTIVE: Mr. Michael is still lethargic. He is arousable. He seems to be alert and oriented. He denies any pain. Seems to have a little bit of abdominal swelling. OBJECTIVE: Temperature 98.5 degrees, pulse 97, respirations 18, blood pressure 140/95. Pupils are equal and round. Lungs are clear in all lung allen. Cardiovascular Examination: Regular rhythm and rate without murmur or S3. Urine output was 2100 mL. ASSESSMENT AND PLAN: 1. Hypoxemic respiratory failure, pneumonia with leukocytosis and pleural effusions, underlying chronic obstructive pulmonary disease. He seems to be improving. Continue current antibiotics. Bronchial hygiene. 2. He appears to have some inflammation in his right arm. I suspect gout so I have started some colchicine. 3. I suspect he has underlying osteoarthritis. 4. Atrial fibrillation, rate controlled. 5. Alcohol withdrawal, seems to be improving. REVIEW OF ORDERS: Looking over present orders, continue present orders. He is on Cefapime 2 g q.12 and vancomycin 2 g q.18. We have him on colchicine 0.6 mg b.i.d. and metoprolol 50 mg b.i.d. He is getting lorazepam p.r.n. withdrawal symptoms, lactulose 30 mL b.i.d., ipratropium bromide inhalation treatment, folic acid 1 mg a day, Lovenox 70 mg subcutaneously q.12. Did this for superficial thrombosis in his arm and also underlying atrial fibrillation. He is on digoxin 250 mcg p.o. daily. cc: Gumaro Reis MD MTDD
[2019-01-14] MEDS: CARDIZEM IV SCH (21:46)
[2019-01-14] MEDS: D5W IV SCH (21:46)
[2019-01-15] MEDS: ATIVAN IV PRN ×2 (03:11→22:13)
[2019-01-15] MEDS: ULTRAM PO PRN ×3 (03:11→23:04)
[2019-01-15] MEDS: ATROVENT NEB INH SCH ×6 (03:22→23:25)
[2019-01-15] MEDS: XOPENEX NEB INH SCH ×6 (03:22→23:25)
[2019-01-15 05:45] LABS: RBC 4.55 XMIL (4.7-6.1); WBC 17.27 X1000 (4.8-10.8)
[2019-01-15 05:46] LABS: BASO# 0.02 X1000 (0.0-0.2); BASO% 0.1 % (0.0-0.8); HEMATOCRIT 44.4 % (42.0-52.0); HEMOGLOBIN 15.1 g/dL (14.0-18.0); IMM GRAN# 0.31 X1000 (0.0-0.04); IMM GRAN% 1.8 % (0.0-0.5); LYMPH% 2.3 % (20.5-51.1); MCH 33.2 PG (27-31); MCV 97.6 FL (81-99); MONO# 1.22 X1000 (0.11-0.59); MONO% 7.1 % (1.7-9.3); MPV 12.2 FL (7.4-10.4); NEUT# 15.32 X1000 (1.4-6.5); NEUT% 88.7 % (42.2-75.2); PLT 390 X1000 (130-400); RDW 17.2 % (11.5-14.5)
[2019-01-15 06:58] LABS: ESTIMATED GFR > 60
[2019-01-15 07:13] LABS: AGAP 14; ALB/GLOB RATIO 0.4; ALBUMIN 1.9 g/dL (3.5-5.0); ALKALINE PHOSPHATASE 240 U/L (32-122); BUN 54 mg/dL (8-22); CALCIUM 8.9 mg/dL (8.8-10.2); CHLORIDE 101 mmol/L (98-107); COSMO 304; CREATININE 0.7 mg/dL (0.7-1.2); GLUCOSE 170 mg/dL (70-104); GOT 96 U/L (10-34); GPT 74 U/L (10-44); MAGNESIUM 2.4 mg/dL (1.5-2.7); POTASSIUM 4.1 mmol/L (3.5-5.1); SODIUM 143 mmol/L (136-145); TCO2 28 mmol/L (25-35); TOTAL BILIRUBIN 0.88 mg/dL (0.20-1.00); TOTAL PROTEIN 6.2 g/dL (6.3-8.3)
[2019-01-15 07:38] LABS: BANDS 4 % (0-1); LYMPHS 4 % (21-51); MONO 4 % (1-9); SEGS 86 % (42-75)
--- NOTE | 2019-01-15 07:52 | Diag Imaging Result Doc PS360 ---
EXAM: CHEST-PORTABLE HISTORY: abnormal exam TECHNIQUE: Portable chest single view COMPARISON: 01/13/2019 FINDINGS: The lungs are well expanded. The heart is enlarged. There is a small right pleural effusion. Pulmonary edema remains. There are infiltrates and or atelectasis in the lower right lung. IMPRESSION: No interval improvement. Electronically signed by Go Darnell 01/15/2019 6:19 AM
[2019-01-15] MEDS: VITAMIN B-1 PO SCH (09:07)
[2019-01-15] MEDS: LACTULOSE PO SCH ×2 (09:07→20:21)
[2019-01-15] MEDS: TOPROL XL PO SCH ×2 (09:07→20:21)
[2019-01-15] MEDS: LANOXIN PO SCH (09:07)
[2019-01-15] MEDS: COLCRYS PO SCH ×2 (09:07→20:21)
[2019-01-15] MEDS: LASIX IV SCH (09:07)
[2019-01-15] MEDS: FOLIC ACID PO SCH (09:07)
[2019-01-15] MEDS: LOVENOX SUBQ SCH ×2 (09:07→20:22)
[2019-01-15] MEDS: MAXIPIME 2 GM in NS 100 ML IV SCH ×2 (09:08→22:37)
[2019-01-15] MEDS: MIRALAX PO SCH (09:08)
--- NOTE | 2019-01-15 10:40 | PROGRESS NOTE ---
DATE: 01/14/2019 SUBJECTIVE: Mr. Michael is awake. He denies any pain. Abdomen seems distended. He is still pretty lethargic. He does hear you, does answer questions it appears appropriately. OBJECTIVE: Temperature 98.2 degrees, pulse 99, respirations 18, blood pressure 135/99. Pupils are equal and round. Lungs are clear in all lung allen. Cardiovascular: Regular rhythm and rate without murmur or S3. Abdomen is soft. Skin is warm and dry. RADIOLOGICAL DATA: Review of x-ray from this morning: Lungs were well expanded. Heart is enlarged. There is small right pleural effusion. Pulmonary edema remains. There is infiltrate or atelectasis in the ower right lung. ASSESSMENT AND PLAN: 1. Hypoxemic respiratory failure, pneumonia, leukocytosis, pleural effusion, underlying chronic obstructive pulmonary disease. His respiratory status seems to be improving. Improved air and gas exchange. Continue present antibiotics and bronchial hygiene. 2. Inflammation in the right arm, suspect gout. He was started on colchicine. 3. Underlying osteoarthritis suspected. 4. Atrial fibrillation, rate controlled. 5. Alcohol withdrawal. He is still pretty slow. I think we are going to need to start some physical therapy and try and sit him up in a chair. He is on colchicine 0.6 mg b.i.d. Lanoxin 250 mcg p.o. daily. Lovenox, we have him on a high dose, 70 mg subcutaneous q.12 h. and this was for his extremity venous study on 01/12/2019 with acute superficial venous thrombosis of the right basilic vein in the right forearm. We will see if we get physical therapy started. REVIEW OF ORDERS/MEDICATION: He is on folic acid 1 mg daily. cefepime 2 g IV q.12 h. Metoprolol 50 mg b.i.d. Thiamine 100 mg p.o. daily. Ultram 50 mg q.6 h. p.r.n. Vancomycin 2 g IV q.18 h. LABORATORY DATA: His lab today white count still elevated at 17,270, hematocrit 44, platelet count 390,000. Sodium 143, potassium 4.1, chloride 101, BUN 54, creatinine 0.7. Transaminases have gone up a little bit; AST from 38 to 96, ALT from 30 to 74. His abdomen seems a little distended. I am going to get an abdominal KUB. We will see if we can try and initiate some physical therapy, maybe even sit him up in the chair. He still seems pretty weak and lethargic. cc: Gumaro Reis MD MTDD
[2019-01-15] MEDS: VANCOMYCIN 2 GM in NS 500 ML IV SCH (12:40)
--- NOTE | 2019-01-15 12:47 | Diag Imaging Result Doc PS360 ---
EXAM: KUB ABDOMEN HISTORY: abdominal distention TECHNIQUE: Abdomen single view COMPARISON: 01/08/2019 FINDINGS: A nasogastric tube is coiled within the stomach. There are distended loops of colon filled with stool. There is air in the distal colon. No organomegaly. No abnormal calcifications. IMPRESSION: Distended colon filled with air and stool Electronically signed by Go Darnell 01/15/2019 12:44 PM
--- NOTE | 2019-01-15 16:01 | PULMONOLOGY PROGRESS NOTE ---
DATE: 01/15/2019 SUBJECTIVE: The patient is more awake and alert. He will respond to questions. He reports he is "doing okay." He continues to have significant pain with movement. OBJECTIVE: The patient has been afebrile for the last 24 hours, blood pressure 144/95, heart rate 96, respiratory rate 21, oxygen saturation 92% on nasal cannula.HEENT: Pupils are equal and reactive. Oropharynx appears dry, but clear. Neck is supple. Chest reveals slight decreased breath sounds, right base. No wheezing or rhonchi. Cardiac: S1, S2. Abdomen is mildly distended with increased tympany. Extremities reveal pain with movement, but less so than yesterday. DIAGNOSTIC STUDIES: Chest x-ray reveals small to moderate effusion, right base, which has not changed. Sodium 143, potassium 4.1, chloride 101, bicarbonate 28, BUN 54, creatinine 1.7. White blood count 17, hemoglobin 10, platelet count 390,000. IMPRESSION: A 58-year-old with: 1. Acute hypoxemic respiratory failure. 2. Effusions. 3. Pneumonia. 4. Chronic obstructive pulmonary disease. 5. Polyarticular joint pain. 6. Alcohol withdrawal with delirium and slow improvement. PLAN: 1. Continue antibiotic regimen. 2. Continue bronchial hygiene. 3. Wean oxygen as tolerated. cc: Mao Burk MD
[2019-01-15] MEDS ORDERED: CARDIZEM 125 MG in NS 100 ML IV SCH (17:00)
[2019-01-15] MEDS: APRESOLINE IV PRN (21:20)
[2019-01-16] MEDS: ATIVAN IV PRN (01:51)
[2019-01-16] MEDS: ATROVENT NEB INH SCH ×6 (03:49→23:28)
[2019-01-16] MEDS: XOPENEX NEB INH SCH ×6 (03:49→23:28)
[2019-01-16] MEDS: VANCOMYCIN 2 GM in NS 500 ML IV SCH (06:04)
--- NOTE | 2019-01-16 08:24 | PROGRESS NOTE ---
DATE: 01/16/2019 INTERVAL HISTORY: Overnight, his tube feeds were held because his abdominal distention was getting worse and his saturations were dropping, and the overnight nursing team was concerned that his abdomen was so distended that it was pushing his lungs. SUBJECTIVE: The patient is confused, does not participate and answer questions appropriately. His pulse was in the 90s most of the time, and atrial fibrillation on monitor. VITALS: Temperature of 97.6, pulse 92, respiratory rate 23, blood pressure 130/95. He is saturating 92% on 4 L nasal cannula. PHYSICAL EXAMINATION: General: Not in any acute distress. He has a nasal cannula. Urine catheter. Nasogastric tube in place with generalized erythema. Oral cavity is dry. Lungs: Air entry bilaterally equal. No wheeze, rhonchi, crackles. Cardiovascular: S1, S2 normal. Irregular. No murmur, rub, or gallop. Abdomen: Distended, tympanic to percussion. Active bowel sounds. Extremities: He has poor nail health bilateral lower extremities. He has significant tenderness of bilateral upper extremities, more pronounced on the left, with upper extremity edema. Neurologic: He is confused. However, he complains of left upper extremity pain when I moved it. His left pupil is dilated, reacting to light. Right pupil is smaller, reacting to light. Withdraws to painful stimuli all extremities equally. No facial droop. Input and output suggestive he did have soft brown bowel movement dulite machine bluer time. LABS: No CBC or BMP on him today. IMAGING: No imaging. ASSESSMENT AND PLAN: 1. Acute hypoxic respiratory failure and sepsis due to right lower lobe pneumonia, as well as right lower lobe pleural effusion on baseline chronic obstructive pulmonary disease. Continue him on intravenous vancomycin, cefepime, intravenous Lasix, levalbuterol ipratropium nebulization. Continue oxygenation through nasal cannula as tolerated. 2. Atrial fibrillation with rapid ventricular rate with prior history of atrial fibrillation and chronic systolic congestive heart failure with ejection fraction of 40%. Increase metoprolol succinate dose. Continue digoxin and Lovenox. I will stop his diltiazem drip and titrate his metoprolol as tolerated. 3. Alcohol use disorder and abuse with alcohol withdrawal. Continue intravenous Ativan as needed. I will get Head CT to rule out CVA considering unequal pupils and him being on therapeutic anticoagulation. 4. History of gout. Continue him on current dose of colchicine. 5. His sepsis has resolved. 5. Abdominal distention. Keep him on bowel regimen to ensure 1 to 2 soft bowel movements a day. Hold tube feeds for 24 hours and attempt tomorrow. DISPOSITION: The patient still appears confused. My plan is to monitor him in ICU. TIME SPENT: More than 30 minutes of critical care time was spent in taking care of this patient. cc: Gregg Catherine MD MTDD
[2019-01-16] MEDS: LOVENOX SUBQ SCH ×2 (08:43→22:46)
[2019-01-16] MEDS: MIRALAX PO SCH (08:43)
[2019-01-16] MEDS: LANOXIN PO SCH (08:43)
[2019-01-16] MEDS: COLCRYS PO SCH ×2 (08:43→20:34)
[2019-01-16] MEDS: LASIX IV SCH (08:43)
[2019-01-16] MEDS: VITAMIN B-1 PO SCH (08:44)
[2019-01-16] MEDS: DULCOLAX PR SCH ×2 (08:44→20:33)
[2019-01-16] MEDS: FOLIC ACID PO SCH (08:44)
[2019-01-16] MEDS: MAXIPIME 2 GM in NS 100 ML IV SCH ×2 (08:59→22:47)
[2019-01-16] MEDS ORDERED: TOPROL XL PO SCH (09:00)
[2019-01-16] MEDS: PEPCID LIQUID PO SCH (09:38)
[2019-01-16] MEDS: ULTRAM PO PRN ×2 (12:45→23:22)
--- NOTE | 2019-01-16 13:29 | Diag Imaging Result Doc PS360 ---
EXAM: CT HEAD W/O CONTRAST HISTORY: encephalopathy TECHNIQUE: CT head without contrast COMPARISON: None. FINDINGS: No parenchymal hemorrhage. No epidural or subdural hematoma. No subarachnoid hemorrhage. No mass identified on this noncontrasted exam. No hydrocephalus. No sinus opacification. IMPRESSION: No hemorrhage. Negative brain CT without contrast. This exam was performed using automated exposure control, adjustment of mA or kV according to patient size, and/or use of iterative reconstruction technique. Electronically signed by Go Darnell 01/16/2019 1:27 PM
[2019-01-16] MEDS: LOPRESSOR NG SCH ×2 (14:46→20:34)
--- NOTE | 2019-01-16 18:27 | PULMONOLOGY PROGRESS NOTE ---
DATE: 01/16/2019 SUBJECTIVE: The patient immediately interacts with examiner. He will answer simple questions. He is without specific complaints. He does not appear to be oriented. OBJECTIVE: Vital Signs: The patient has been afebrile over the last 24 hours. Blood pressure 137/95, heart rate 104, respiratory rate 25, oxygen saturation 92% on 5 L per nasal cannula. HEENT: Pupils are equal and reactive. Oropharynx appears clear. Neck: Supple. Chest: Reveals prolonged expiratory phase with occasional rhonchi. Cardiac exam: S1, S2, irregular rhythm. Abdomen: Mildly distended with increased tympany. He denies pain. LABORATORIES: CT scan of the head was ordered by Dr. Catherine, which reveals no evidence of acute disease. IMPRESSION: A 58-year-old with: 1. Acute hypoxemic respiratory failure. 2. Pleural effusions and pneumonia. 3. Chronic obstructive pulmonary disease. 4. Polyarticular joint pain. 5. Alcohol withdrawal syndrome and delirium. He has had some marginal improvement. 6. Abdominal distention, possible ileus. PLAN: 1. Continue antibiotics. 2. Continue bronchial hygiene. 3. Continue oxygen. 4. Routine labs tomorrow. cc: Mao Burk MD
[2019-01-17] MEDS: LOPRESSOR NG SCH ×4 (01:45→20:27)
[2019-01-17] MEDS: VANCOMYCIN 2 GM in NS 500 ML IV SCH ×2 (01:47→17:32)
[2019-01-17] MEDS: ATROVENT NEB INH SCH ×5 (03:30→19:31)
[2019-01-17] MEDS: XOPENEX NEB INH SCH ×5 (03:30→19:31)
[2019-01-17 04:43] LABS: BASO# 0.07 X1000 (0.0-0.2); BASO% 0.3 % (0.0-0.8); EOS# 0.04 X1000 (0.0-0.7); EOS% 0.2 % (0.0-10.0); HEMATOCRIT 43.9 % (42.0-52.0); HEMOGLOBIN 14.8 g/dL (14.0-18.0); IMM GRAN# 0.98 X1000 (0.0-0.04); IMM GRAN% 4.7 % (0.0-0.5); LYMPH# 0.73 X1000 (1.2-3.4); LYMPH% 3.5 % (20.5-51.1); MCH 33.2 PG (27-31); MCHC 33.7 g/dL (33-37); MCV 98.4 FL (81-99); MONO# 1.07 X1000 (0.11-0.59); MONO% 5.2 % (1.7-9.3); MPV 11.8 FL (7.4-10.4); NEUT# 17.81 X1000 (1.4-6.5); NEUT% 86.1 % (42.2-75.2); PLT 479 X1000 (130-400); RBC 4.46 XMIL (4.7-6.1); RDW 17.4 % (11.5-14.5)
[2019-01-17 05:12] LABS: LYMPHS 4 % (21-51); MONO 5 % (1-9); SEGS 91 % (42-75)
[2019-01-17 05:15] LABS: ESTIMATED GFR > 60
[2019-01-17 05:19] LABS: AGAP 10; BUN 52 mg/dL (8-22); CALCIUM 8.6 mg/dL (8.8-10.2); CHLORIDE 102 mmol/L (98-107); COSMO 297; CREATININE 0.8 mg/dL (0.7-1.2); GLUCOSE 94 mg/dL (70-104); MAGNESIUM 2.1 mg/dL (1.5-2.7); POTASSIUM 3.9 mmol/L (3.5-5.1); SODIUM 142 mmol/L (136-145); TCO2 30 mmol/L (25-35)
--- NOTE | 2019-01-17 07:26 | Diag Imaging Result Doc PS360 ---
EXAM: CHEST-PORTABLE HISTORY: abnormal exam TECHNIQUE: Portable chest single view COMPARISON: 01/15/2019 FINDINGS: A nasogastric tube overlies the esophagus and stomach. The heart is enlarged. Small effusions with mild pulmonary edema. Questionable underlying basilar infiltrates. The overall appearance is similar to the prior exam. IMPRESSION: Stable chest Electronically signed by Go Darnell 01/17/2019 7:24 AM
--- NOTE | 2019-01-17 07:35 | Diag Imaging Result Doc PS360 ---
EXAM: KUB ABDOMEN HISTORY: distention TECHNIQUE: Abdomen single view COMPARISON: 01/15/2019 FINDINGS: There is a nasogastric tube within the stomach. Air distended colon remains. Decreased stool within the colon. No organomegaly. No abnormal abdominal calcifications. IMPRESSION: Persistent lead distended colon although there is less stool on the current study. Electronically signed by Go Darnell 01/17/2019 7:33 AM
[2019-01-17] MEDS: VITAMIN B-1 PO SCH (09:02)
[2019-01-17] MEDS: COLCRYS PO SCH ×2 (09:02→20:26)
[2019-01-17] MEDS: FOLIC ACID PO SCH (09:02)
[2019-01-17] MEDS: PEPCID LIQUID PO SCH (09:02)
[2019-01-17] MEDS: DULCOLAX PR SCH ×2 (09:03→20:26)
[2019-01-17] MEDS: LASIX IV SCH (09:03)
[2019-01-17] MEDS: LOVENOX SUBQ SCH ×2 (09:03→20:26)
[2019-01-17] MEDS: MIRALAX PO SCH (09:03)
[2019-01-17] MEDS: LANOXIN PO SCH (09:06)
[2019-01-17] MEDS: MAXIPIME 2 GM in NS 100 ML IV SCH ×2 (09:06→22:48)
--- NOTE | 2019-01-17 09:40 | PROGRESS NOTE ---
DATE: 01/17/2019 INTERVAL HISTORY: No acute events overnight. SUBJECTIVE: General: He is feeling better, appears much awake and alert. HEENT: Oral cavity has sputum and poor oral health. Lungs: Air entry bilaterally equal. No wheeze, rhonchi, crackles. Cardiovascular: S1, S2 normal. Irregular. No murmur, rub, or gallop. Abdomen: Distended. No bowel sounds. Tympanic to percussion. Extremities: He has poor nail health of bilateral lower extremities. He has decreased tenderness of bilateral upper extremities as compared to before. Neurologic: He is alert. He is oriented x2, and partially to situation as well. His pupils are bilaterally equal and reacting to light. Right pupil is slightly smaller than left; however, reacting equally. He is able to wiggle all extremities equally. No facial droop. He has nasogastric tube, a Suarez catheter, and nasal cannula. He has had multiple bowel movements yesterday. LABORATORY DATA: Suggestive of persistent leukocytosis, normal hemoglobin, thrombocytosis. He has elevated BUN. SIGNIFICANT IMAGING: Chest x-ray performed today is suggestive of small effusions with mild pulmonary edema. Abdominal x-ray suggestive of persistent distended colon with less stool than before. ASSESSMENT AND PLAN: 1. Acute hypoxic respiratory failure and sepsis due to right lower lobe pneumonia as well as right lower lobe pleural effusion on top of baseline chronic obstructive pulmonary disease. Continue intravenous vancomycin and cefepime. Day 1 of antibiotics was 01/12/2019. Continue intravenous Lasix, levalbuterol/ipratropium nebulization, and oxygenation through nasal cannula. 2. Atrial fibrillation with rapid ventricular rate with prior history of atrial fibrillation and chronic systolic congestive heart failure with ejection fraction of 40%. Continue metoprolol tartrate, digoxin, therapeutic Lovenox. He would need outpatient workup for his congestive heart failure, which is not in acute exacerbation at the moment. 3. Alcohol use disorder and abuse with alcohol withdrawal. Continue intravenous Ativan as needed, folic acid, and thiamine. He was counseled about not using it in the future. 4. Abdominal distention, likely colonic ileus. Continue current bowel regimen. Give swallow evaluation, and try oral feeds if he tolerates, otherwise start nasogastric tube at a lower rate. 5. Others. Continue current colchicine for history of gout, famotidine for stress ulcer prophylaxis. 6. Disposition. The patient seems to be improving on a daily basis. My plan is to transfer him to [facility] later today or tomorrow. Plan of care discussed with the patient and the nursing team. I called the patient's father and informed him and updated him about the patient's clinical course, and answered all of his questions. TIME SPENT: More than 30 minutes of critical care time were spent in taking care of this patient. cc: Gregg Catherine MD
[2019-01-17] MEDS: ATIVAN IV PRN (13:38)
[2019-01-17] MEDS: LIBRIUM NG SCH ×2 (13:38→17:06)
[2019-01-18] MEDS: ATROVENT NEB INH SCH ×7 (00:03→22:49)
[2019-01-18] MEDS: XOPENEX NEB INH SCH ×7 (00:03→22:49)
[2019-01-18] MEDS: LOPRESSOR NG SCH ×4 (02:39→20:09)
[2019-01-18] MEDS: DULCOLAX PR SCH ×2 (08:15→20:09)
--- NOTE | 2019-01-18 08:17 | PULMONOLOGY PROGRESS NOTE ---
DATE: 01/17/2019 SUBJECTIVE: The patient is awake, alert, and conversant. He reports he is doing "okay". He has moderate cough effort. He has pain with movement of his arms or any other joints. OBJECTIVE: Vital Signs: The patient has been afebrile for the last 24 hours. Blood pressure 98/78, heart rate 108 respiratory rate 26, oxygen saturation 93%. HEENT: Pupils are equal and reactive. Oropharynx is clear. Neck: Supple. Chest: Reveals good air entry bilaterally with decreased breath sounds at the right base. Cardiac: S1, S2. Abdomen: Reveals mild distention with increased tympany. Extremities: Reveal tenderness to movement of his wrist shoulders. IMAGING: chest x-ray reveals small effusions, right greater than left. KUB reveals distended colon. LABORATORY DATA: White blood count 21310, hemoglobin 14.8, platelet count 479,000. IMPRESSION: 58-year-old with: 1. Acute hypoxemic respiratory failure. 2. Chronic obstructive pulmonary disease. 3. Pleural effusion and pneumonia. 4. Polyarticular joint pain. 5. Abdominal distention with possible colonic ileus. PLAN: 1. Continue bronchial hygiene. 2. Continue physical therapy. 3. Encourage smoking and alcohol cessation. cc: Mao Burk MD
[2019-01-18] MEDS: FOLIC ACID PO SCH (08:33)
[2019-01-18] MEDS: LANOXIN PO SCH (08:33)
[2019-01-18] MEDS: COLCRYS PO SCH ×2 (08:33→20:09)
[2019-01-18] MEDS: LOVENOX SUBQ SCH ×2 (08:33→20:09)
[2019-01-18] MEDS: LASIX IV SCH (08:33)
[2019-01-18] MEDS: MIRALAX PO SCH (08:33)
[2019-01-18] MEDS: LIBRIUM NG SCH ×3 (08:33→16:53)
[2019-01-18] MEDS: VITAMIN B-1 PO SCH (08:35)
[2019-01-18] MEDS: PEPCID LIQUID PO SCH (08:35)
[2019-01-18] MEDS: MAXIPIME 2 GM in NS 100 ML IV SCH ×2 (09:23→22:04)
--- NOTE | 2019-01-18 09:58 | PROGRESS NOTE ---
DATE: 01/18/2019 INTERVAL HISTORY: He has had multiple bowel movements. His vitals were unremarkable. He is alert, but still appears confused. Follows simple commands. He can tell me his name, but he states he has been having a lot of pain in the left arm because of gout. He did not eat by mouth, so nasogastric tube was started yesterday. VITALS: Temperature 97.4 degrees, pulse 110 respiratory 21, blood pressure 123/80, and saturating 93% on 4 L nasal cannula. PHYSICAL EXAMINATION: General: He does not appear in any acute distress. Oral cavity is moist. Lungs: Air entry bilaterally equal. No wheeze, rhonchi, or crackles. Cardiovascular: S1, S2 normal. Irregularly irregular. No murmur, rub, or gallop. Abdomen: Distended. Soft. Mildly tender generalized. Active bowel sounds. Tympanic to percussion. Extremities: No lower extremity edema. He does have bilateral upper extremity swelling. Neurologic: He is alert. He is oriented to himself and to me, not with the situation. His pupils are bilaterally equal reacting to light. He is able to move all of his extremities spontaneously. He has a nasogastric tube, Suarez catheter, and nasal cannula. LABORATORY: No CBC or BMP today. MICROBIOLOGY: No additional data. IMAGING: No additional imaging. ASSESSMENT AND PLAN: 1. Acute hypoxic respiratory failure and sepsis due to right lower lobe pneumonia, and right lower lobe pleural effusion on baseline chronic obstructive pulmonary disease. Continue intravenous vancomycin and cefepime. Day 1 is 01/12. I will get follow-up chest x-ray tomorrow and decide about duration of antibiotics. Continue intravenous Lasix. Leave albuterol ipratropium nebulization and oxygenation through nasal cannula. 2. Atrial fibrillation with rapid ventricular rate with prior history of atrial fibrillation and congestive heart failure with chronic congestive heart failure with reduced ejection fraction of 40%. Continue metoprolol tartrate, digoxin, and therapeutic Lovenox. 3. Alcohol abuse and use disorder. Continue intravenous Ativan as needed, oral folic acid, thiamine, and chlordiazepoxide. 4. Acute gout of left hand, forearm: Continue Colchicine. It is improving clinically. 4. Abdominal distention, likely colonic ileus. He has been having bowel movements liquidy every day. Continue current bowel regimen, nasogastric tube feeds and swallow evaluation. 5. Others: Continue colchicine for history of gout; famotidine for stress ulcer prophylaxis. He is on enoxaparin for DVT prophylaxis. 6. Disposition: I will transfer patient to [facility] today. Plan of care discussed with him. I called his father yesterday and updated him about his clinical course. cc: rGegg Catherine MD MTDD
[2019-01-19] MEDS: LOPRESSOR NG SCH ×4 (02:04→20:05)
[2019-01-19] MEDS: ATROVENT NEB INH SCH ×6 (03:09→23:48)
[2019-01-19] MEDS: XOPENEX NEB INH SCH ×6 (03:09→23:48)
[2019-01-19 06:37] LABS: AGAP 11; BUN 44 mg/dL (8-22); CALCIUM 8.9 mg/dL (8.8-10.2); CHLORIDE 107 mmol/L (98-107); COSMO 310; ESTIMATED GFR > 60; GLUCOSE 108 mg/dL (70-104); MAGNESIUM 2.2 mg/dL (1.5-2.7); POTASSIUM 3.7 mmol/L (3.5-5.1); SODIUM 150 mmol/L (136-145); TCO2 32 mmol/L (25-35)
--- NOTE | 2019-01-19 07:13 | Diag Imaging Result Doc PS360 ---
EXAM: CHEST-PORTABLE 01/19/2019 HISTORY: dyspnea TECHNIQUE: AP portable at 0607 COMMENT: There is platelike atelectasis in the lingula. There is basilar pulmonary edema bilaterally. The atelectasis is worse than on 01/17/2019 otherwise are has been no significant change. The NG tube remains with its tip below the diaphragm. IMPRESSION: Pulmonary edema and lingular atelectasis. Electronically signed by Shimon Hinson 01/19/2019 7:10 AM
--- NOTE | 2019-01-19 07:32 | PULMONOLOGY PROGRESS NOTE ---
DATE: 01/18/2019 SUBJECTIVE: The patient is awake, alert, and conversant. He reports he is "having an okay day". He does have pain with movement of his extremities. He reports he is passing gas, and has been having liquid bowel movements. OBJECTIVE: Vital Signs: The patient has been afebrile for the last 24 hours. BP 124/79, heart rate 105, respiratory rate 22, and oxygen saturation 96% on 4 L per nasal cannula. HEENT: Pupils are equal and reactive. Oropharynx appears clear. Neck: Supple. Lungs: Chest reveals crackles in both lung bases. Cardiac: S1-S2. Abdomen: Reveals mild tympany. Extremities: Reveals trace edema with tenderness on moving hand/wrist on the left more so than the right. LABORATORIES: No chemistry or CBC today. IMPRESSION: A 58-year-old with: 1. Acute hypoxemic respiratory failure. 2. Pneumonia with pleural effusion. 3. Chronic obstructive pulmonary disease. 4. Abdominal distention with ileus. 5. Polyarticular joint pain, likely related to gout. PLAN: 1. Continue bronchial hygiene. 2. Continue physical therapy. 3. Anticipate transfer to the floor today. 4. Encourage smoking and alcohol cessation. cc: Mao Burk MD
[2019-01-19 08:41] LABS: BASO# 0.09 X1000 (0.0-0.2); BASO% 0.4 % (0.0-0.8); EOS# 0.12 X1000 (0.0-0.7); EOS% 0.5 % (0.0-10.0); HEMATOCRIT 41.4 % (42.0-52.0); HEMOGLOBIN 13.7 g/dL (14.0-18.0); IMM GRAN# 0.89 X1000 (0.0-0.04); IMM GRAN% 3.5 % (0.0-0.5); LYMPH# 0.72 X1000 (1.2-3.4); LYMPH% 2.8 % (20.5-51.1); MCH 33.3 PG (27-31); MCHC 33.1 g/dL (33-37); MCV 100.5 FL (81-99); MONO# 1.44 X1000 (0.11-0.59); MONO% 5.7 % (1.7-9.3); MPV 11.7 FL (7.4-10.4); NEUT# 22.19 X1000 (1.4-6.5); NEUT% 87.1 % (42.2-75.2); PLT 695 X1000 (130-400); RBC 4.12 XMIL (4.7-6.1); RDW 17.4 % (11.5-14.5); WBC 25.45 X1000 (4.8-10.8)
[2019-01-19 09:03] LABS: BANDS 8 % (0-1); LYMPHS 2 % (21-51); MONO 2 % (1-9); SEGS 88 % (42-75)
[2019-01-19] MEDS: DULCOLAX PR SCH ×3 (10:07→20:13)
[2019-01-19] MEDS: LASIX IV SCH (10:21)
[2019-01-19] MEDS: LIBRIUM NG SCH ×3 (10:21→17:20)
[2019-01-19] MEDS: PEPCID LIQUID PO SCH (10:22)
[2019-01-19] MEDS: LANOXIN PO SCH (10:23)
[2019-01-19] MEDS: MIRALAX PO SCH (10:24)
[2019-01-19] MEDS: COLCRYS PO SCH ×2 (10:25→20:05)
[2019-01-19] MEDS: VITAMIN B-1 PO SCH (10:25)
[2019-01-19] MEDS: LOVENOX SUBQ SCH ×2 (10:25→20:04)
[2019-01-19] MEDS: FOLIC ACID PO SCH (10:25)
[2019-01-19] MEDS: MAXIPIME 2 GM in NS 100 ML IV SCH ×2 (10:26→21:12)
[2019-01-19] MEDS: ULTRAM PO PRN (11:21)
--- NOTE | 2019-01-19 16:47 | Diag Imaging Result Doc PS360 ---
EXAM: KUB ABDOMEN INDICATION: distention, wbc TECHNIQUE: One view COMPARISON: 01/17/2019 FINDINGS: The NG tube is in stable position. There is stable gaseous distention of the colon. There is no evidence of large volume free abdominal gas given the limitations of a supine radiograph. Otherwise, the abdomen is stable. IMPRESSION: Stable colonic distention. Electronically signed by Gallo Downs 01/19/2019 4:44 PM
[2019-01-19] MEDS: VANCOMYCIN 2 GM in NS 500 ML IV SCH (17:20)
[2019-01-19] MEDS: TYLENOL PO PRN (18:12)
[2019-01-19] MEDS ORDERED: D5W 1,000 ML IV SCH (21:45)
--- NOTE | 2019-01-19 22:05 | PROGRESS NOTE ---
DATE: 01/19/2019 HOSPITAL COURSE SUMMARY: Mr. Michael was admitted on January 05 with chief complaint of shortness of breath, and he was found to have right lower lobe pneumonia and atrial fibrillation with rapid ventricular rate, so he was transferred to [facility]. Since then, he is being treated for acute hypoxic respiratory failure, right lower lobe pneumonia, atrial fibrillation with rapid ventricular rate, as well as acute encephalopathy in the setting of alcohol withdrawal. He has had abdominal distention with colonic ileus but daily liquidy bowel movements since then; however, he has not been able to eat by mouth and getting NG tube feedings. SUBJECTIVE: He is confused, does not follow commands. Keeps his eyes open at the time of my encounter. VITALS: Temperature 98.5 degrees, pulse of 93, respiratory rate 16, blood pressure 140/72, saturating 90% to 94% on room air. OBJECTIVE: General: He is confused. HEENT: Oral cavity is dry. He has a nasogastric tube. Lungs: Air entry bilaterally equal. No wheeze or rhonchi. He does have right inframammary crackles. Cardiovascular: S1, S2 normal. No murmur, rub, or gallop. It is irregularly irregular. Abdomen: Distended, soft. He has voluntary guarding without any rigidity. Active bowel sounds. Tympanic to percussion. No lower extremity edema. He has urine catheter. He has bilateral upper and lower extremity edema, and he winces in pain when I try to move bilateral upper extremities. He is lethargic but opens eyes to strong verbal stimuli but does not follow commands. LABORATORY DATA: Today suggestive of worsening leukocytosis, thrombocytosis, hypernatremia, elevated BUN and normal creatinine. Stool C difficile analysis is pending. ASSESSMENT AND PLAN: 1. Acute hypoxic respiratory failure and sepsis due to right lower lobe pneumonia and right lower lobe pleural effusion on baseline chronic obstructive pulmonary disease. Continue intravenous vancomycin and cefepime. Day 1 of antibiotic is January 12, 2019. Continue intravenous Lasix, albuterol ipratropium nebulization and oxygenation through nasal cannula. 2. Atrial fibrillation with rapid ventricular rate with congestive heart failure with reduced ejection fraction of 40%. Continue metoprolol tartrate, digoxin, and therapeutic Lovenox. 3. Abdominal distention, persistent leukocytosis and liquidy stools. I will get C difficile toxin and antigen analysis. I will consider getting CT scan of the abdomen and pelvis with oral contrast. Continue bowel regimen as tolerated and continue nasogastric tube feeding. His father tells me he previously had history of intestinal resection. 4. Alcohol abuse and current delirium due to alcohol withdrawal. Continue intravenous Ativan as needed, folic acid, thiamine, and chlordiazepoxide. 5. Acute gout flare affecting bilateral upper extremities. Continue colchicine. 6. Others: Continue famotidine for stress ulcer prophylaxis. 7. Disposition: Patient remains in [facility] for persistent acute encephalopathy. He has refused PRACTICING UROLOGIST evaluation when he becomes alert. I called patient's father and informed him about the patient's clinical course. cc: Gregg Catherine MD MTDD
[2019-01-20] MEDS: LOPRESSOR NG SCH (02:05)
[2019-01-20] MEDS: XOPENEX NEB INH SCH ×6 (02:59→23:32)
[2019-01-20] MEDS: ATROVENT NEB INH SCH ×6 (02:59→23:32)
[2019-01-20] MEDS: ZOSYN 3.375 GM in NS 50 ML IV SCH ×3 (08:46→20:32)
[2019-01-20] MEDS: LASIX IV SCH (08:48)
[2019-01-20] MEDS: LOVENOX SUBQ SCH (08:49)
[2019-01-20] MEDS: D5W 1,000 ML IV SCH ×4 (08:50→19:26)
[2019-01-20] MEDS: DULCOLAX PR SCH ×2 (09:42→22:03)
--- NOTE | 2019-01-20 09:53 | Diag Imaging Result Doc PS360 ---
EXAM: CT ABD/PELVIS W/ORAL CONT ONLY INDICATION: Evaluate for colitis/toxic colon TECHNIQUE: This exam was performed using automated exposure control, adjustment of mA or kV according to patient size, and/or use of iterative reconstruction technique. COMPARISON: None. FINDINGS: There are bilateral small pleural effusions and bibasilar atelectasis. There is a small amount of pericardial fluid. There is mild cardiomegaly. An NG tube is in place with the tip looped in the proximal duodenum. There is a 1 cm hypodense focus at the inferior right hepatic lobe that is nonspecific. It may represent a tiny cyst. The liver is unremarkable, otherwise. The gallbladder, spleen, pancreas, adrenal glands, and kidneys are grossly unremarkable. There is a Suarez catheter in the urinary bladder. The bladder is partially distended and contains luminal gas, likely introduced by the catheter. No bladder wall thickening is appreciated. There is significant gaseous distention of the colon that is most prominent at the ascending colon, which measures up to 9 cm in diameter. No focal colonic wall thickening is appreciated. No colonic stricture is identified. There is a surgical staple line in the rectosigmoid region. There are a few air-fluid levels in loops of small bowel with only normal distention. There is no obstructive small bowel bowel pattern. There is no pneumoperitoneum or pneumatosis. There is a small amount of free fluid layering in the pelvis that is nonspecific. There is a soft tissue hematoma at the anteromedial aspect of the right thigh that is partially imaged. The visualized portion measures up to 4 cm in diameter. There is moderate soft tissue anasarca associated with the pelvis. There are a few droplets of subcutaneous gas at the ventral abdominal wall are probably introduced from injection. IMPRESSION: 1.Significant gaseous distention of the colon and mild distention of a few loops of small bowel but no wall thickening or stricture identified. Consider ileus. 2.Hematoma at the anteromedial aspect of the right thigh that is partially imaged. 3.Bilateral small pleural effusions with adjacent atelectasis. 4.Other findings detailed above. Electronically signed by Gallo Downs 01/20/2019 9:51 AM
[2019-01-20] MEDS: COLCRYS PO SCH ×2 (10:25→20:59)
[2019-01-20] MEDS: FOLIC ACID PO SCH (10:25)
[2019-01-20] MEDS: MIRALAX PO SCH (10:26)
[2019-01-20] MEDS: VITAMIN B-1 PO SCH (10:26)
[2019-01-20] MEDS: LIBRIUM NG SCH ×3 (10:26→17:12)
[2019-01-20] MEDS: PEPCID LIQUID PO SCH (10:26)
[2019-01-20] MEDS: LANOXIN IV SCH (10:55)
[2019-01-20] MEDS: LOPRESSOR IV SCH ×3 (10:55→22:03)
--- NOTE | 2019-01-20 11:50 | PULMONOLOGY PROGRESS NOTE ---
DATE: 01/19/2019 SUBJECTIVE: The patient is arousable. He is not tolerating p.o. intake and has been initiated on tube feeds. OBJECTIVE: Vital Signs: Maximum temperature in the last 24 hours 99.9 degrees. Blood pressure 115/67, heart rate 98, respiratory rate 20, oxygen saturation 95% on 2 L per nasal cannula. HEENT: Pupils are equal. Oropharynx is clear. Neck: Supple. Chest: Crackles in both lung bases. Cardiac: S1, S2. Abdomen: Mildly distended with increased tympany. Extremities: Without edema. LABORATORY DATA AND DIAGNOSTICS: Chest x-ray reveals a small effusion on the right with atelectasis on the left with a generous cardiac silhouette. KUB reveals extensive colonic distention. Sodium 150, potassium 3.7, chloride 107, bicarbonate 44, creatinine 1.0. White blood count 25.45, hemoglobin 13.7, platelet count 695,000. IMPRESSION: 58-year-old with: 1. Alcohol use with withdrawal syndrome and delirium with gradual improvement. 2. Pneumonia with pleural effusion. 3. Chronic obstructive pulmonary disease. 4. Ongoing colonic ileus. 5. Polyarticular joint pain. 6. Hypernatremia. RECOMMENDATION: 1. Continue bronchial hygiene. 2. Initiate D5W for hypernatremia. 3. Recommend CT scan of the abdomen and pelvis as you have ordered. 4. Encourage alcohol and tobacco cessation. cc: Mao Burk MD
--- NOTE | 2019-01-20 13:29 | PROGRESS NOTE ---
DATE: 01/20/2019 SUBJECTIVE: The patient is a little more sleepy today according to the nursing staff. He has been more lethargic. More abdominal distention is noted according to them. OBJECTIVE: Vital Signs: Temperature is 99.7, heart rate 104, respiratory rate 20, blood pressure 135/81, and O2 saturation 96% on 2 L nasal cannula. General: This is a chronically ill- appearing, looking older than his stated age, 50-year-old male lying in bed in no acute distress. HEENT: The head is normocephalic and atraumatic. There is some thrush noted over the tongue. Mucous membranes are dry. The patient has an NG tube in place. Neck: No JVD noted. No carotid bruits. No lymphadenopathy or thyromegaly. Cardiovascular: S1 and S2 are heard. Irregular rate and rhythm but no murmurs, gallops, or rubs noted. Respiratory: Minimal crackles in both pulmonary bases. The patient does not have any rhonchi or wheezing. The patient is not using any accessory muscles or having work of breathing. Abdomen: The abdomen is distended and tympanitic to percussion. Bowel sounds are almost absent. No signs of peritoneal irritation. Extremities: No clubbing, cyanosis, or edema. Peripheral pulses are present in both legs. The patient has a Suarez catheter. The patient has what looks like an area of fluctuance versus swelling in the right inner thigh painful to palpation. Neurological: The patient is lethargic. Opens eyes to verbal stimuli. Does not follow commands. Moves all extremities spontaneously. LABORATORY DATA: White cell count is at 25.45, hemoglobin 13.7, hematocrit 40.1 and platelets 695. The sodium is 150 with creatinine of 1 and BUN of 44. ASSESSMENT AND PLAN: 1. Acute hypoxemic respiratory failure and sepsis due to right lower lobe pneumonia and right lower lobe pleural effusion on baseline chronic obstructive pulmonary disease. The patient's white cell count since January 17 has been high at 20,000. Two days before it was 17,000. The patient is on cefepime and vancomycin, day #9 for both medications. Considering the finding of ileus and more abdominal distention I would prefer to change cefepime to Zosyn in this case, 3.375 g IV every 6 hours. Last x-ray was yesterday which showed basically pulmonary edema or lingular atelectasis. At this point we will continue with intravenous Lasix and breathing treatments and we will go from there. 2. Atrial fibrillation with rapid ventricular response and congestive heart failure with reduced ejection fraction of 40%. The patient is on metoprolol but he is going to be changed to IV metoprolol because he is not able to take anything by mouth. We will also change digoxin to IV form as well and we will continue with Lovenox therapeutic. 3. Abdominal distention with persistent leukocytosis and liquid tarry stools. Actually because of the abdominal distention we have done an abdominal CT which showed an ileus and also what looks like a hematoma on the right inner thigh so at this point I think we need to consult General Surgery and we will see what they have to say. 4. Right inner thigh hematoma versus abscess. As mentioned before General Surgery has been consulted and we will see what they have to say. 5. Alcohol abuse and current delirium due to alcohol withdrawal. The patient is on Librium, Suarez catheter, and thiamine. We will continue at this point with IV Ativan because patient will not take anything by mouth now. 6. Acute gout flare effecting bilateral upper extremities. We will continue with colchicine. DISPOSITION: I think this patient continues to be encephalopathic. White count is getter worse and sodium is getting higher as well. I think at this point the patient needs to be transferred to the Intensive Care Unit for better monitoring. cc: Chandrakant Tellez MD [facility]
[2019-01-20] MEDS ORDERED: OFIRMEV 1000 MG/ISOTONIC SOLN 1,000 MG/100 ML BOTTLE IV PRN (17:15)
--- NOTE | 2019-01-20 20:31 | GENERAL SURGERY CONSULTATION ---
DATE: 01/20/2019 HISTORY OF PRESENT ILLNESS: This is a gentleman that has been in the hospital for several weeks, multiple ongoing issues, respiratory failure, atrial fibrillation, RVR, now with abdominal distention and diarrhea. He has got a nasogastric tube in place. He also has alcohol withdrawal, gout. CT scan was obtained that showed evidence of a colonic ileus, possible right thigh hematoma. Otherwise history somewhat limited from the patient. MEDICAL HISTORY: As noted in his HPI. SURGICAL HISTORY: He has apparently had what looks like a low anterior colectomy for unclear reasons. SOCIAL HISTORY: Alcohol abuse, suspect smoking as well. FAMILY HISTORY: Is unavailable. REVIEW OF SYSTEMS: Unobtainable. He is on vancomycin and Zosyn for pneumonia as well as therapeutic Lovenox. PHYSICAL EXAM: He is afebrile, pulse been low 100s, blood pressure 135/81, oxygen saturation 96% on 2 L.General: He is alert but delirious not speaking appropriate. HEENT: No scleral icterus. No cervical mass. Cardiovascular: Normal rate. Pulmonary: No increased work of breathing. Abdomen: Soft, mildly distended, lower midline incision. NG tube in place. Psychiatric: He is somewhat tremulous . Neurologic: He has generalized slowing. Peripheral vascular: Lower extremities are well perfused. He does have some fullness medial aspect of his thigh but there is no ecchymosis. Lymphatic: No inguinal adenopathy. I reviewed his CT scan with above findings. His labs white count up to 25 has been climbing, hematocrit 41, creatinine is 1.0. ASSESSMENT AND PLAN: A 58-year-old gentleman who appears to have a colonic ileus. I have asked the nurse to place a rectal tube. I am going to hold his Lovenox as well given the thigh hematoma. Will monitor all these issues. He does not have peritonitis on exam and I would advise against surgery but I do agree with the both upper, lower decompression and ongoing medical management. cc: MD DANIELITO Thorpe
[2019-01-20] MEDS: MORPHINE IV PRN (20:43)
[2019-01-21] MEDS: D5W 1,000 ML IV SCH ×4 (01:53→10:11)
[2019-01-21] MEDS: ATROVENT NEB INH SCH ×6 (03:21→22:55)
[2019-01-21] MEDS: XOPENEX NEB INH SCH ×6 (03:21→22:55)
[2019-01-21] MEDS: LOPRESSOR IV SCH ×4 (03:26→21:24)
[2019-01-21] MEDS: ZOSYN 3.375 GM in NS 50 ML IV SCH ×4 (03:26→21:23)
[2019-01-21] MEDS: MORPHINE IV PRN ×2 (04:36→21:23)
[2019-01-21 06:39] LABS: AGAP 10; BUN 29 mg/dL (8-22); CALCIUM 8.7 mg/dL (8.8-10.2); CHLORIDE 98 mmol/L (98-107); COSMO 285; ESTIMATED GFR > 60; GLUCOSE 98 mg/dL (70-104); MAGNESIUM 1.8 mg/dL (1.5-2.7); POTASSIUM 3.4 mmol/L (3.5-5.1); SODIUM 140 mmol/L (136-145); TCO2 32 mmol/L (25-35)
[2019-01-21 06:51] LABS: BASO# 0.03 X1000 (0.0-0.2); BASO% 0.2 % (0.0-0.8); EOS# 0.22 X1000 (0.0-0.7); EOS% 1.4 % (0.0-10.0); HEMATOCRIT 36.7 % (42.0-52.0); HEMOGLOBIN 11.9 g/dL (14.0-18.0); IMM GRAN# 0.34 X1000 (0.0-0.04); IMM GRAN% 2.1 % (0.0-0.5); LYMPH% 3.8 % (20.5-51.1); MCH 33.1 PG (27-31); MCHC 32.4 g/dL (33-37); MCV 102.2 FL (81-99); MONO% 5.6 % (1.7-9.3); MPV 11.8 FL (7.4-10.4); NEUT% 86.9 % (42.2-75.2); PLT 625 X1000 (130-400); RBC 3.59 XMIL (4.7-6.1); RDW 17.6 % (11.5-14.5); WBC 15.99 X1000 (4.8-10.8)
--- NOTE | 2019-01-21 07:48 | Diag Imaging Result Doc PS360 ---
EXAM: KUB ABDOMEN INDICATION: colonic ileus TECHNIQUE: One view COMPARISON: 01/19/2019 FINDINGS: The NG tube is in stable position. Gaseous distention of bowel that is predominantly colonic is again identified and is approximately stable. No large volume free abdominal gas can be identified. The abdomen is stable, otherwise. IMPRESSION: Essentially stable gaseous distention of bowel. Electronically signed by Gallo Downs 01/21/2019 7:45 AM
--- NOTE | 2019-01-21 08:00 | Diag Imaging Result Doc PS360 ---
EXAM: CHEST-PORTABLE INDICATION: abnormal exam TECHNIQUE: One view COMPARISON: 01/19/2019 FINDINGS: The NG tube is in stable position. The platelike atelectasis at the left lower lung zone is stable. The mild interstitial edema at the lung bases is approximately stable. No new consolidation is identified. Cardiac silhouette is stable. IMPRESSION: Essentially stable chest. Electronically signed by Gallo Downs 01/21/2019 7:58 AM
[2019-01-21] MEDS: LANOXIN IV SCH (09:25)
[2019-01-21] MEDS: LASIX IV SCH (09:25)
[2019-01-21] MEDS: COLCRYS PO SCH ×2 (09:49→23:29)
[2019-01-21] MEDS: VITAMIN B-1 PO SCH (09:50)
[2019-01-21] MEDS: LIBRIUM NG SCH ×3 (09:50→17:35)
[2019-01-21] MEDS: MIRALAX PO SCH (09:50)
[2019-01-21] MEDS: PEPCID LIQUID PO SCH (09:50)
[2019-01-21] MEDS: FOLIC ACID PO SCH (09:50)
[2019-01-21] MEDS: DULCOLAX PR SCH (09:51)
[2019-01-21] MEDS: PEPCID IV SCH ×2 (10:10→23:30)
[2019-01-21] MEDS: SOLU-MEDROL IV SCH ×2 (10:10→23:30)
--- NOTE | 2019-01-21 10:12 | PULMONOLOGY PROGRESS NOTE ---
DATE: 01/20/2019 SUBJECTIVE: The patient is currently being transferred from the [facility] to the ICU for closer observation. Clinically he appears similar to yesterday. OBJECTIVE: The patient has been afebrile for the last 24 hours. Blood pressure 122/72, heart rate 100, respiratory rate 25, oxygen saturation is 96%.HEENT: Pupils are equal and reactive. Oropharynx appears clear. Neck is supple. Chest reveals good air entry bilaterally with crackles in both lung bases. Cardiac exam: Increased rate, regular rhythm. Abdomen is mildly distended but nontender. Extremities are without edema. DIAGNOSTIC DATA: CT scan of the abdomen and pelvis yesterday revealed a soft tissue hematoma on the right thigh with colonic ileus and small pleural effusion. IMPRESSION: A 58-year-old with: 1. Alcohol withdrawal with delirium. 2. Pneumonia with pleural effusions, which are improving. 3. Chronic obstructive pulmonary disease. 4. Colonic ileus. 5. Polyarticular joint pain. PLAN: 1. Continue NG to low intermittent suction. 2. Anticipate placement of rectal tube as outlined by Dr. Briones. 3. Follow up chemistries for hyponatremia tomorrow morning. We will continue D5W. cc: Mao Burk MD
[2019-01-21] MEDS: POTASSIUM CHLORIDE 20 MEQ/SWI 20 MEQ/100 ML IVPB IV SCH ×2 (10:30→12:19)
--- NOTE | 2019-01-21 13:35 | Diag Imaging Result Doc PS360 ---
EXAM: US NON VASC EXTREMITY LIMITED INDICATION: hematoma vs abscess TECHNIQUE: COMPARISON: None. FINDINGS: There is significant soft tissue edema throughout the anterior aspect of the thigh. However, there is no loculated fluid to indicate an abscess. The edema is nonspecific. If there are signs of infection it could represent cellulitis. No solid masses are identified. IMPRESSION: Significant soft tissue edema at the anterior aspect of the thigh as described but no loculated fluid to indicate abscess. Electronically signed by Gallo Downs 01/21/2019 1:33 PM
--- NOTE | 2019-01-21 13:40 | PROGRESS NOTE ---
DATE: 01/21/2019 SUBJECTIVE: The patient continues to be sleepy but responds to verbal stimuli in comparing with yesterday. He looks slightly better today. OBJECTIVE: Vital Signs: Temperature. 97.1 degrees, heart rate 84, respiratory rate 21, blood pressure 128/83, O2 saturation 94% on 3 L. General: This is a chronically ill appearing and looking older than his stated age 58-year-old, male, lying in bed, in no acute distress. HEENT: Head is normocephalic, atraumatic. Less thrush noted over the tongue. Mucous membranes very dry. Patient has an NG tube in place with very yellowish drainage coming out. No carotid bruits. No lymphadenopathy. No thyromegaly. Cardiovascular: S1, S2 heard I irregularly. Irregular but no murmurs, gallops, or rubs noted. Respiratory: Respiratory exam minimal crackles noted still in both pulmonary bases. Patient not using any accessory muscles. Abdomen: Distended. Less than compared with yesterday. Patient's abdomen is tympanic to percussion. Bowel sounds present. No signs of peritoneal irritation. Extremities: No clubbing cyanosis or edema. Peripheral pulses present in both legs. : The patient has a Suarez catheter. There is an area of induration in the right inner thigh. No fluctuant's noted. Neurologic: Patient is lethargic but answered but responds to verbal stimuli. Does follow basic commands. Moves all 4 extremities. LABORATORY DATA: White cell count 15.99, hemoglobin 11.9, hematocrit 36.7, platelets 625,000. BMP that shows sodium 140, potassium 3.4, creatinine. 1.0, magnesium 1.8. ASSESSMENT AND PLAN: 1. Acute hypoxemic respiratory failure and sepsis due to right lower lobe pneumonia and right lower lobe pleural effusion. White cell count has been high. He has been on vancomycin and cefepime for 9 days. Yesterday because the white cell count started getting higher I decided to continue with vancomycin. Today the #10 for that medication but I started him on Zosyn day #2 today. White cell count started getting better. We will continue with both medications. I think will complete at least 14 days of vancomycin we will continue with Zosyn. 2. Atrial fibrillation with rapid ventricular response and congestive heart failure with reduced ejection fraction 40%. The patient because he is not able to take anything by mouth has been changed to Toprol IV. Also digoxin has been changed to IV form. Heart rate is well controlled. We will continue with same management. 3. Colonic ileus. The patient has been evaluated by general surgery. Clinically, he is looking better. His NG tube now is on low intermittent suction and he also have a rectal tube. At this point, we will continue with same management. His white cell count is getting better. We will continue to monitor. 4. Right inner thigh hematoma versus abscess. At this point the ultrasound of soft the ultrasound of that inner thigh did not show any hematoma in any case. Lovenox has been held for possibility of hematoma. Surgery is on board but then not planning to do any incision or drainage. We will continue to monitor. 5. Alcohol abuse. Current delirium due to alcohol withdrawal. The patient is more stable. Not requiring too much Ativan at the patient is not able to take anything by mouth including Librium. We will continue to monitor. 6. Acute gout flare. Affected bilateral upper extremities. Because patient isn't able to take anything by mouth we have started him on Solu-Medrol 40 mg IV q.12 hours. We will continue to monitor. 7. Disposition. We will continue to monitor this patient in intensive care unit. cc: Chandrakant Tellez MD [facility]
--- NOTE | 2019-01-21 15:14 | GENERAL SURGERY PROGRESS NOTE ---
DATE: 01/21/2019 SUBJECTIVE: He was transferred to the ICU for higher level of care, given the patient's agitation and multiple issues, to help offload some the burden of his nurses. OBJECTIVE: Hemodynamically, he has been stable overnight. No fevers. Pulse has been in the 90s, blood pressure 142/90, oxygen saturations high 90s on 3 L. General: He remains alert but somewhat confused. Not really conversant but does speak inappropriately. NG tube is in place, bilious output. Abdomen is mildly distended but soft, nontender. BMSin place with liquid stool. His right medial thigh has more ecchymosis but overall, the degree of swelling is about the same. White count is down to 15, hematocrit is 36. Creatinine is 1.0. ASSESSMENT AND PLAN: This is a 58-year-old gentleman with multiple medical issues including alcohol withdrawal, pneumonia. He seems to have developed a spontaneous right medial thigh hematoma related to therapeutic anticoagulation, which I held yesterday. He also has a colonic ileus. He has a rectal tube in place. We will monitor this for now. He has had negative Clostridium difficile. I would recommend continued tube decompression both from above and below, and would also consider engaging gastroenterology for possible endoscopic decompression of his colon, especially if things were to worsen. We will continue to monitor him going forward. No plans for surgical intervention. cc: Nena Briones MD [facility]
[2019-01-21] MEDS: VANCOMYCIN 2 GM in NS 500 ML IV SCH (17:30)
--- NOTE | 2019-01-21 21:18 | PULMONOLOGY PROGRESS NOTE ---
DATE: 01/21/2019 SUBJECTIVE: The patient is awake, alert, and conversant. He is without specific complaints. OBJECTIVE: Vital Signs: The patient has been afebrile for the last 24 hours. Blood pressure 103/66, heart rate 107, respiratory rate 23, oxygen saturation 96% on 3 L per nasal cannula. HEENT: Pupils are equal and reactive. Oropharynx appears clear. Neck: Is supple. Chest: Is softer, but increased tympany persist. Extremities: Reveal trace edema. LABORATORIES: Sodium 140, potassium 3.4, chloride 98, bicarbonate 32, BUN 29, creatinine 1.0. White blood count 15.99, hemoglobin 11.9, platelet count 625,000. Chest x-ray reveals stable effusion at the right base. KUB reveals gaseous distention of the colon. It appears slightly less than when compared to the customer security clerk film of the CT scan of the abdomen yesterday. IMPRESSION: 58-year-old with 1. Pneumonia and pleural effusion with continued improvement. 2. Chronic obstructive pulmonary disease. 3. Colonic ileus. 4. Polyarticular joint pain. 5. Possible thigh hematoma. 6. Delirium with continued improvement. DISCUSSION: A 58-year-old with problems outlined above. White blood count is decreasing, which may be in part related to bowel decompression. PLAN: 1. Continue current fluids. 2. Continue nasogastric and rectal tubes. 3. Continue antibiotics for now. cc: Mao Burk MD
[2019-01-21] MEDS: SODIUM CHLORIDE 0.9% INJ SCH (23:31)
[2019-01-22] MEDS: D5W 1,000 ML IV SCH (01:20)
[2019-01-22] MEDS: DULCOLAX PR SCH ×3 (02:06→20:10)
[2019-01-22] MEDS: ZOSYN 3.375 GM in NS 50 ML IV SCH ×4 (02:06→20:10)
[2019-01-22] MEDS: ATROVENT NEB INH SCH ×6 (03:24→23:00)
[2019-01-22] MEDS: XOPENEX NEB INH SCH ×6 (03:24→23:00)
[2019-01-22] MEDS: LOPRESSOR IV SCH ×4 (03:28→21:49)
[2019-01-22 05:25] LABS: BASO# 0.03 X1000 (0.0-0.2); BASO% 0.2 % (0.0-0.8); HEMATOCRIT 35.7 % (42.0-52.0); IMM GRAN# 0.13 X1000 (0.0-0.04); IMM GRAN% 0.7 % (0.0-0.5); LYMPH# 0.45 X1000 (1.2-3.4); LYMPH% 2.5 % (20.5-51.1); MCH 33.4 PG (27-31); MCHC 33.6 g/dL (33-37); MCV 99.4 FL (81-99); MONO# 0.24 X1000 (0.11-0.59); MONO% 1.4 % (1.7-9.3); MPV 11.3 FL (7.4-10.4); NEUT# 16.86 X1000 (1.4-6.5); NEUT% 95.2 % (42.2-75.2); PLT 616 X1000 (130-400); RBC 3.59 XMIL (4.7-6.1); RDW 16.9 % (11.5-14.5); WBC 17.71 X1000 (4.8-10.8)
[2019-01-22 05:44] LABS: AGAP 11; BUN 26 mg/dL (8-22); CALCIUM 8.1 mg/dL (8.8-10.2); CHLORIDE 96 mmol/L (98-107); COSMO 281; ESTIMATED GFR > 60; GLUCOSE 137 mg/dL (70-104); MAGNESIUM 1.7 mg/dL (1.5-2.7); PHOSPHORUS 4.4 mg/dL (2.7-4.5); POTASSIUM 4.3 mmol/L (3.5-5.1); SODIUM 137 mmol/L (136-145); TCO2 30 mmol/L (25-35)
--- NOTE | 2019-01-22 07:28 | Diag Imaging Result Doc PS360 ---
EXAM: KUB ABDOMEN 01/22/2019 HISTORY: colonic ileus TECHNIQUE: KUB COMMENT: There is an NG tube with its tip in the distal stomach or duodenum. There is gas and some liquid and solid fecal debris present throughout the colon particularly in the ascending colon. This has improved slightly since the previous study of 01/21/2019. There may be some small bowel gas. No definite organomegaly or mass is present. IMPRESSION: Findings consistent with colonic ileus. Electronically signed by Shimon Hinson 01/22/2019 7:25 AM
[2019-01-22] MEDS: LASIX IV SCH (08:56)
[2019-01-22] MEDS: LIPOSYN 20% 250 ML IV SCH (09:07)
[2019-01-22] MEDS: CLINIMIX E 4.25%-5% SOLUTION 1,000 ML IV SCH ×2 (09:07→20:11)
[2019-01-22] MEDS: FOLIC ACID PO SCH (09:40)
[2019-01-22] MEDS: COLCRYS PO SCH ×2 (09:40→20:12)
[2019-01-22] MEDS: MIRALAX PO SCH (09:41)
[2019-01-22] MEDS: LIBRIUM NG SCH ×3 (09:41→18:13)
[2019-01-22] MEDS: VITAMIN B-1 PO SCH (09:41)
[2019-01-22] MEDS: PEPCID IV SCH ×2 (10:20→21:49)
[2019-01-22] MEDS: LANOXIN IV SCH (10:20)
[2019-01-22] MEDS: SODIUM CHLORIDE 0.9% INJ SCH ×2 (10:20→21:49)
[2019-01-22] MEDS: SOLU-MEDROL IV SCH (10:21)
--- NOTE | 2019-01-22 11:59 | PROGRESS NOTE ---
DATE: 01/22/2019 SUBJECTIVE: Patient is definitely much more awake, able to have a coherent conversation. Oriented in place, name, and time. No abdominal pain reported. OBJECTIVE: Vital Signs: Temperature 102.1 degrees, heart rate 135, respiratory rate 14, blood pressure 102/31, O2 saturation 97% on 2 L nasal cannula. General Examination: This is a chronically ill-appearing and looking older than his stated age 58-year-old male, lying in bed, in no acute distress. HEENT: Head is normocephalic, atraumatic. Almost no thrush noted over the tongue. Mucous membranes dry. The patient has an NG tube in place with very yellowish drainage coming out. No carotid bruits. No lymphadenopathy. Cardiovascular: S1, S2 heard, irregularly irregular, but no murmurs, gallops, or rubs noted. Respiratory: Minimal crackles still noted in both pulmonary bases. Patient is not using any accessory muscles or having work of breathing. Abdomen: Distended. Same in comparing with yesterday. Patient's abdomen is tympanic to percussion. Bowel sounds present. No signs of peritoneal irritation. Extremities: No clubbing, cyanosis, or edema. Peripheral pulses present in both legs. Genitourinary: Patient has a Suarez catheter. There is an induration of the right inner ear still, but no fluctuance noted. Neurological: Patient is awake, alert. Moves [address], name, and time. LABORATORY DATA: White cell count 17.71, hemoglobin 12.0, hematocrit 35.7, platelets 616. Normal BMP. ASSESSMENT AND PLAN: 1. Acute hypoxemic respiratory failure and sepsis due to right lower lobe pneumonia and right lower lobe pleural effusion. White cell count has been getting better today but started getting worse again. The patient is on Zosyn and vancomycin day #11 and day #3 for Zosyn. The patient also continues to spike fever. At this time, I prefer to get an Infectious Disease consultation. 2. Atrial fibrillation with rapid ventricular response and congestive heart failure with ejection fraction of 40%. The patient is receiving IV metoprolol and IV digoxin because he is not able to take anything by mouth right now. At this point, we will continue to monitor. 3. Colonic ileus. The patient has been evaluated by General Surgery. The x-ray from today shows basically the same findings. At this point, we will continue with rectal tube and NG tube to low intermittent suction. White cell count is getting worse again. 4. Right inner thigh hematoma versus abscess. No hematoma or abscess noted in the right inner thigh. 5. Alcohol abuse with current delirium due to alcohol withdrawal. That condition is much better. Patient is more awake and alert. We will continue to monitor. 6. Acute gout flare. Solu-Medrol had been started yesterday. We will continue to monitor. DISPOSITION: The patient is more awake and alert. I think we can send him to [facility] today. cc: Chandrakant Tellez MD [facility]
--- NOTE | 2019-01-22 13:08 | GENERAL SURGERY PROGRESS NOTE ---
DATE: 01/22/2019 OBJECTIVE: Neurologically, he remains quite delirious. Hemodynamically, he has been stable. NG tube is bilious. BMS he is putting out liquid stool. He does not seem to voice any complaints. He did have a fever this morning of 102.1. General, he seems alert but is not conversant. Cardiovascular normal rate pulmonary nasal cannula. Abdomen is soft, nontender, nondistended. On musculoskeletal exam, his right medial thigh induration is stable. White count 17, hematocrit 35, creatinine is 1.0, BUN is down to 26, bicarb is 30. IMAGING: An abdominal x-ray shows improvement in colonic dilation, but he does still have some small bowel dilation. ASSESSMENT AND PLAN: This is a 58-year-old gentleman with multiple ongoing medical issues. He has a colonic ileus. We will continue tube decompression. No plans for surgical intervention. I do not suspect that the fever is coming from an abdominal source. Blood cultures have been negative. Would consider exchanging lines potentially. cc: Nena Briones MD
--- NOTE | 2019-01-22 17:25 | INFECTIOUS DISEASE CONSULT REP ---
DATE: 01/22/2019 CONCLUSION: The patient is seen for evaluation of fever and leukocytosis. The patient has a hematoma on the right thigh. This could be infected and could be causing the patient's leukocytosis and fever. Also, the patient is on steroids and this could be contributing to the patient's leukocytosis. RECOMMENDATIONS: I have discussed the patient's case with Dr. Smith. We both feel that the steroids can be discontinued and this may help to bring the white cell count down. Also, I put in a order for ultrasound aspiration of the patient's right thigh hematoma and I have requested that it be sent for culture. DISCUSSION: The patient was a poor historian. He could not tell me exactly why he came into the hospital. According to the initial history and physical he was short of breath. The patient's CBC today shows a white count of 17,710, hemoglobin is 12, platelet count 606,000. Creatinine is 1. GFR is greater than 60. The patient's urine culture has been negative. All of his blood cultures except 1 have been negative and the one that was positive was 1/2 blood cultures grew a Streptococcus mitis. Chest x-ray shows atelectasis and edema. KUB shows colonic ileus. CAT scan of the abdomen and pelvis shows a soft tissue hematoma which measures up to 4 cm in diameter. The patient also had significant gaseous distention of the colon and mild distention of a few loops of small bowel. The patient did have only 1 blood culture out of all of them drawn that grew Streptococcus mitis, this may have been a contaminant and if it was not he has been on multiple antibiotic therapy which should take care of the bacteremia and subsequent to that all blood cultures have been negative. PAST MEDICAL HISTORY/REVIEW OF SYSTEMS: Head, eyes, ears, nose and throat: The patient denied having any problem hearing or seeing. Neck: No stiffness. Respiratory: No cough or shortness of breath. Cardiac: No chest pain or palpitations. GI: Patient is not complaining of any abdominal pain. He does have an NG tube down. Neurologic: The patient did not complain of headaches or loss of motor or sensory function. PREVIOUS HOSPITALIZATIONS AND OPERATIONS: He has had a colectomy for colon cancer. He has been admitted to the hospital because of atrial fibrillation. He has also been in the hospital because of alcoholism. MEDICAL DISEASES: Positive for colon cancer, alcoholism, atrial fibrillation, and congestive heart failure. INFECTIOUS DISEASE HISTORY: Negative for pneumonia and UTI. FAMILY HISTORY: Positive for diabetes mellitus, hypertension, myocardial infarction, stroke and cancer. SOCIAL HISTORY: [place] He is . He lives with his father. He does not have any drug allergies. He is an alcoholic. He does not smoke cigarettes or abuse drugs. 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 There were no home medications. The patient does not have any pets at home. PHYSICAL EXAMINATION: Vital Signs: Temperature is 97.7 degrees, the highest it reached is 102 in the past day. Pulse is 82, respirations 20, blood pressure 129/81. The patient's weight is listed as 162 pounds. General: This is a somewhat ill-appearing, middle-aged male. He is in no acute distress. Head, eyes, ears, nose, and throat: Has an NG tube in place. There is no drainage from the nose or the ears. Neck: No meningismus. Lungs: Clear to auscultation. Cardiovascular: Heart rate is regular. Abdomen: Soft. It was slightly tender in the lower part of the abdomen. Bowel sounds were present. Neurologic: The patient is alert. He can move his extremities. He does not have any tremor. His sensation is intact to touch. His memory as regarding his medical history was poor. Integument: No rash noted. Bones, joints, muscles: The patient's right leg does have a swelling in the anteromedial area that is tender and questionably fluctuant. Thank you for the consult. cc: Richie Razo MD
[2019-01-22] MEDS: ATIVAN IV PRN (17:30)
[2019-01-22] MEDS: MORPHINE IV PRN (20:10)
[2019-01-23] MEDS: ZOSYN 3.375 GM in NS 50 ML IV SCH ×4 (02:01→21:12)
[2019-01-23] MEDS: ATROVENT NEB INH SCH ×6 (03:11→23:07)
[2019-01-23] MEDS: XOPENEX NEB INH SCH ×6 (03:11→23:07)
[2019-01-23] MEDS: CLINIMIX E 4.25%-5% SOLUTION 1,000 ML IV SCH ×2 (03:18→15:12)
[2019-01-23] MEDS: LOPRESSOR IV SCH ×4 (03:19→21:13)
[2019-01-23 06:13] LABS: BASO# 0.02 X1000 (0.0-0.2); BASO% 0.1 % (0.0-0.8); HEMATOCRIT 36.5 % (42.0-52.0); HEMOGLOBIN 11.8 g/dL (14.0-18.0); IMM GRAN% 0.8 % (0.0-0.5); LYMPH# 0.65 X1000 (1.2-3.4); LYMPH% 2.7 % (20.5-51.1); MCH 32.4 PG (27-31); MCHC 32.3 g/dL (33-37); MCV 100.3 FL (81-99); MONO% 4.6 % (1.7-9.3); MPV 11.7 FL (7.4-10.4); NEUT# 21.78 X1000 (1.4-6.5); NEUT% 91.8 % (42.2-75.2); PLT 660 X1000 (130-400); RBC 3.64 XMIL (4.7-6.1); RDW 16.7 % (11.5-14.5); WBC 23.75 X1000 (4.8-10.8)
[2019-01-23 06:28] LABS: AGAP 10; BUN 33 mg/dL (8-22); CALCIUM 8.9 mg/dL (8.8-10.2); CHLORIDE 99 mmol/L (98-107); COSMO 285; CREATININE 0.8 mg/dL (0.7-1.2); ESTIMATED GFR > 60; GLUCOSE 110 mg/dL (70-104); MAGNESIUM 1.8 mg/dL (1.5-2.7); PHOSPHORUS 3.9 mg/dL (2.7-4.5); POTASSIUM 3.4 mmol/L (3.5-5.1); SODIUM 139 mmol/L (136-145); TCO2 30 mmol/L (25-35)
[2019-01-23 06:54] LABS: LYMPHS 4 % (21-51); MONO 4 % (1-9); SEGS 92 % (42-75)
--- NOTE | 2019-01-23 07:16 | Diag Imaging Result Doc PS360 ---
EXAM: US GUIDE,BIOPSY 01/22/2019 HISTORY: aspirate R thigh hematoma in radiology TECHNIQUE: Ultrasound-guided aspiration of the right inner thigh. COMMENT: There is a fairly large hematoma in the medial right thigh measuring 7.3 x 4.1 x 3.1 cm. There is hypoechoic and inhomogeneous in appearance. There is no internal color Doppler flow. Following sterile preparation of the skin and administration of 1% lidocaine to the skin and deeper soft tissues, a 20-gauge spinal needle was inserted into the mass and aspiration was performed producing very little grossly bloody gelatinous material. The mass is essentially solid. There are no immediate complications. The sample was sent to the laboratory for bacteriological studies. IMPRESSION: Aspiration of what appears to be a hematoma in the medial right thigh. Electronically signed by Shimon Hinson 01/23/2019 7:13 AM
--- NOTE | 2019-01-23 07:26 | PULMONOLOGY PROGRESS NOTE ---
DATE: 01/22/2019 SUBJECTIVE: The patient is awake, alert, and conversant. He does not appear to be oriented. His speech has improved over the last 24 hours. OBJECTIVE: Vital Signs: The patient had an isolated temperature of 102.1 degrees at 4:00 this morning, but otherwise has remained afebrile with temperatures less than 98.4, BP 133/83, heart rate 97, respiratory rate 20, oxygen saturation 98% on nasal cannula. HEENT: Pupils are equal and reactive. Oropharynx appears clear. Neck: Supple. Chest: Occasional rhonchi bilaterally. Cardiac: S1, S2. Abdomen: Soft and without hepatosplenomegaly. Mild increased tympany. Nontender. Extremities: Bandage over ultrasound-guided aspiration on the aspect of the thigh. IMAGING AND LABORATORY DATA: White blood count 17.7, hemoglobin 12.0, platelet count 616,000. Chemistry: Sodium 137, potassium 4.3, chloride 96, bicarbonate 30, BUN 26, creatinine 1.0. No new microbiology data. KUB reveals colonic ileus without significant change. IMPRESSION: A 58-year-old with: 1. Pneumonia and pleural effusion with slow improvement. 2. Chronic obstructive pulmonary disease. 3. Colonic ileus. 4. Polyarticular joint pain, which continues to improve. 5. Abnormal soft tissue density in the right thigh, status post aspiration. 6. Delirium with slow improvement. PLAN: 1. Await culture results. 2. Followup chest x-ray tomorrow. 3. Continue current antibiotic regimen as outlined by Dr. Razo. cc: Mao Burk MD
--- NOTE | 2019-01-23 07:48 | Diag Imaging Result Doc PS360 ---
EXAM: KUB ABDOMEN INDICATION: colonic ileus TECHNIQUE: One view COMPARISON: 01/22/2019 FINDINGS: The NG tube is in stable position. The gaseous colonic distention appears to have improved at least slightly on the left. The right colonic distention is approximately stable. No large volume free abdominal gas is identified. The abdomen is stable, otherwise. IMPRESSION: Slight improvement of gaseous distention of colon. Electronically signed by Gallo Downs 01/23/2019 7:46 AM
--- NOTE | 2019-01-23 08:06 | Diag Imaging Result Doc PS360 ---
EXAM: CHEST-PORTABLE INDICATION: abnormal exam TECHNIQUE: One view COMPARISON: 01/21/2019 FINDINGS: The NG tube is in grossly stable position. Platelike atelectasis at the left lower lung zone is unchanged. Mild interstitial edema at the lung bases is stable. No new consolidation is identified. Cardiac silhouette is stable. IMPRESSION: Stable chest. Electronically signed by Gallo Downs 01/23/2019 8:03 AM
[2019-01-23] MEDS: LIPOSYN 20% 250 ML IV SCH (09:00)
[2019-01-23] MEDS: LASIX IV SCH (09:53)
[2019-01-23] MEDS: SODIUM CHLORIDE 0.9% INJ SCH ×2 (09:53→21:13)
[2019-01-23] MEDS: PEPCID IV SCH ×2 (09:53→21:13)
[2019-01-23] MEDS: LANOXIN IV SCH (09:54)
[2019-01-23] MEDS: DULCOLAX PR SCH ×2 (09:54→21:13)
[2019-01-23] MEDS: MIRALAX PO SCH (09:55)
[2019-01-23] MEDS: VITAMIN B-1 PO SCH (09:55)
[2019-01-23] MEDS: FOLIC ACID PO SCH (09:55)
[2019-01-23] MEDS: COLCRYS PO SCH ×2 (09:55→21:13)
[2019-01-23] MEDS: LIBRIUM NG SCH ×3 (09:55→17:34)
--- NOTE | 2019-01-23 12:52 | PROGRESS NOTE ---
DATE: 01/23/2019 SUBJECTIVE: As per nursing staff, his mental status has been fluctuating. Yesterday, the patient was definitely much more awake and able to have a coherent conversation. Today, he is definitely more sleepy. He had not received anything sedating recently. OBJECTIVE: Vital Signs: Temperature 97.2 degrees, heart rate 82, respiratory rate 19, blood pressure 128/95, and O2 saturation 98% on 3 L nasal cannula. General: This is a chronically ill looking older than his stated age. He each 58-year-old male lying in bed in no acute distress. HEENT: Head is normocephalic, atraumatic. No thrush noted over the tongue. Mucous membranes dry. Patient has an NG tube with yellowish drainage coming out. Neck: No lymphadenopathy. No carotid bruits. Cardiovascular: S1, S2 heard. Irregularly irregular rhythm, but no murmurs, gallops, or rubs noted. Respiratory: Minimal crackles and rhonchi noted in both pulmonary bases. Patient not using any accessory muscles or having work of breathing. Abdomen: Soft. Distended. Same compared with yesterday. Patient abdomen is tympanic to palpation. Bowel sounds present. No signs of peritoneal irritation. Extremities: No clubbing, cyanosis, or edema. Peripheral pulses present in both legs. Genitourinary: Patient has a Suarez catheter. Skin: There is an abrasion on the right inner ear that is covered by dressing. No fluctuance noted. Neurological: Patient is sleepy but awakes to verbal stimuli. He is oriented in place and time. LABORATORY DATA: White cell count 23.75, hemoglobin 11.8, hematocrit 36.5, and platelets 660,000. BMP remarkable for potassium 3.4, BUN 33, and glucose 110. ASSESSMENT/PLAN: 1. Acute hypoxemic respiratory failure on sepsis due to right lower lobe pneumonia. Right lower lobe pleural effusion. White cell count continues to get worse. Patient has been on vancomycin and Zosyn. Because of this worsening infection, Dr. Razo has been consulted. There has not been any changes to his current treatment. We have stopped IV steroids because we think that that is causing the elevation of white cell counts. We will see how he does. 2. Atrial fibrillation with rapid ventricular response with congestive heart failure with ejection fraction of 40%. The patient is on IV digoxin and IV metoprolol. Heart rate is well controlled. We will continue with the same management. 3. Colonic ileus. The x-ray from this morning shows improvement. We will continue with NG tube to low intermittent suction and rectal tip as well. 4. Right inner thigh hematoma that has been drained by interventional radiologist. 5. Alcohol abuse with current delirium due to alcohol withdrawal. I do not think this patient is on alcohol withdrawal at this time. He is not requiring any Ativan recently. We will continue to monitor. 6. Acute gouty flare. Solu-Medrol has been started 3 days ago but because of elevation of the white cell count, we decided to stop it. I am not actually if the patient is not complaining of any pain. 7. Disposition. We will continue to monitor this patient closely. cc: Chandrakant Tellez MD
--- NOTE | 2019-01-23 15:35 | INFECTIOUS DISEASE PROGRESS NO ---
DATE: 01/23/2019 PRESENT ILLNESS: I was asked see the patient because of fever and leukocytosis. It has been now 2 days that the patient has not had any fever. Unfortunately, the patient's white count actually increased from yesterday to 23,750. The patient yesterday was found to have a large hematoma in the right thigh. This was aspirated and sent for culture, which is pending. MEDICATIONS: The patient is on a combination of vancomycin and Zosyn. This is the 11th day of treatment. PHYSICAL EXAMINATION: Vital Signs: Temperature is 98 degrees, pulse 74, respirations 18, blood pressure is 124/81. Generally: This is a somewhat ill-appearing, middle-aged male. He is in no acute distress, however. Head, eyes, ears, nose, and throat: He can hear my spoken words and see near objects. There is no drainage from his nose or ears. He does not have any white patches in his mouth. Neck: No neck pain with movement of the neck or head. Lungs: Clear to auscultation. Cardiovascular: Heart rate is regular. Abdomen: Soft and not tender. Extremities: The right leg is indurated and swollen anteriorly-medially at the thigh. Neurologic: The patient is awake. He can move his extremities. There is no tremor. LAB AND X-RAY: Chest x-ray shows atelectasis and edema. X-ray of the abdomen shows improvement in the gaseous colon distention. Blood cultures and stool for Clostridium difficile antigen and toxin are negative. The culture results of the right leg aspirate are still pending. Creatinine is 0.8. GFR is greater than 60. CBC shows a white count of 23,750, hemoglobin is 11.8, and platelet count is 660,000. ASSESSMENT AND PLAN: The patient's fever appears to have cleared. He has a leukocytosis. This still may be an effect of the steroids that were stopped yesterday. Also, it is possible that the patient does have an infection in the thigh and that could be causing the leukocytosis as well. My plan is to continue with vancomycin and Zosyn and repeat the patient's CBC and BMP for tomorrow. COMORBIDITIES: He has had colon cancer. He is an alcoholic. He has congestive heart failure and atrial fibrillation. cc: Richie Razo MD
[2019-01-23] MEDS ORDERED: VANCOMYCIN 2,000 MG in NS 500 ML IV ONE (17:00)
[2019-01-23] MEDS: VANCOMYCIN 2 GM in NS 500 ML IV SCH (17:34)
[2019-01-23] MEDS: ATIVAN IV PRN (18:31)
--- NOTE | 2019-01-23 20:51 | GENERAL SURGERY PROGRESS NOTE ---
DATE: 01/23/2019 SUBJECTIVE: Remains in ICU. He is sleeping this morning. No fevers. No tachycardia. OBJECTIVE: General: He is sleeping. Nasogastric tube is in place. Abdomen: Soft, nontender, nondistended. Integumentary: Warm, dry. LABORATORY: White count is 23, hematocrit is 36. Creatinine 0.8. Potassium low of 3.4. ASSESSMENT/PLAN: This is a 58-year-old gentleman with ileus, colonic distention. He has a rectal and NG tube in place. Would recommend correction of electrolytes, peripheral nutritional support, and continued medical management. I do not suspect that he has any evidence of toxic colitis, and that with improvement in his overall clinical condition, this will improve as well. cc: Nena Briones MD MTDD
--- NOTE | 2019-01-23 21:44 | Diag Imaging Result Doc PS360 ---
EXAM: CHEST-PORTABLE INDICATION: NGT placement confirmation TECHNIQUE: One view COMPARISON: 01/23/2019 FINDINGS: The NG tube is coiled below the diaphragm and is assumed to be in the lumen of the stomach in the expected position. The lungs are overexposed due to focus on the NG tube. There are approximately stable. IMPRESSION: NG tube identified in the expected position projecting below the diaphragm. Electronically signed by Gallo Downs 01/23/2019 9:41 PM
[2019-01-24] MEDS: ZOSYN 3.375 GM in NS 50 ML IV SCH (01:49)
[2019-01-24] MEDS: MORPHINE IV PRN (01:49)
[2019-01-24] MEDS: LOPRESSOR IV SCH ×4 (02:21→21:08)
--- NOTE | 2019-01-24 03:36 | PULMONOLOGY PROGRESS NOTE ---
DATE: 01/23/2019 SUBJECTIVE: The patient is awake, alert, and conversant. He does indicate that he is in [facility]. He thought that he had been in the hospital for almost a week when this is actually day 18. OBJECTIVE: Vital signs: The patient has been afebrile for the last 24 hours. Heart rate 75, respiratory rate 19, blood pressure 115/86, oxygen saturation 98%. HEENT: Pupils are equal and reactive. Oropharynx appears clear. Neck: Supple. Chest: Reveals good air entry bilaterally. Cardiac: S1, S2. Abdomen: Softer. Extremities: Without edema. LABORATORIES: White blood count 23.75, hemoglobin 11.8, platelet count 660,000. Sodium 139, potassium 3.4, chloride 99, bicarbonate 30, BUN 33, creatinine 0.8. Glucose 110. Chest x-ray reveals minimal platelike atelectasis in the left base, but otherwise without acute disease. KUB of the abdomen reveals some decrease in colonic gaseous distention. IMPRESSION AND PLAN: 1. Continue oxygen for hypoxemic respiratory failure. 2. Continue to follow pleural effusion. 3. Continue antibiotics per Infectious Disease. Clinically, he does not appear toxic, but he does have a leukocytosis. cc: Mao Burk MD
[2019-01-24] MEDS: ATROVENT NEB INH SCH ×6 (03:43→23:17)
[2019-01-24] MEDS: XOPENEX NEB INH SCH ×6 (03:43→23:17)
[2019-01-24] MEDS: CLINIMIX E 4.25%-5% SOLUTION 1,000 ML IV SCH ×2 (04:16→14:43)
[2019-01-24 05:53] LABS: AGAP 12; BUN 35 mg/dL (8-22); CHLORIDE 98 mmol/L (98-107); COSMO 286; CREATININE 0.8 mg/dL (0.7-1.2); ESTIMATED GFR > 60; GLUCOSE 108 mg/dL (70-104); MAGNESIUM 1.8 mg/dL (1.5-2.7); POTASSIUM 3.3 mmol/L (3.5-5.1); SODIUM 139 mmol/L (136-145); TCO2 29 mmol/L (25-35)
[2019-01-24 06:02] LABS: BASO# 0.05 X1000 (0.0-0.2); BASO% 0.2 % (0.0-0.8); EOS# 0.04 X1000 (0.0-0.7); EOS% 0.2 % (0.0-10.0); HEMATOCRIT 37.7 % (42.0-52.0); HEMOGLOBIN 12.4 g/dL (14.0-18.0); IMM GRAN% 1.5 % (0.0-0.5); LYMPH# 0.81 X1000 (1.2-3.4); MCH 33.3 PG (27-31); MCHC 32.9 g/dL (33-37); MCV 101.3 FL (81-99); MONO# 0.76 X1000 (0.11-0.59); MONO% 3.8 % (1.7-9.3); MPV 11.4 FL (7.4-10.4); NEUT# 18.19 X1000 (1.4-6.5); NEUT% 90.3 % (42.2-75.2); PLT 705 X1000 (130-400); RBC 3.72 XMIL (4.7-6.1); RDW 16.8 % (11.5-14.5); WBC 20.15 X1000 (4.8-10.8)
[2019-01-24] MEDS: LIPOSYN 20% 250 ML IV SCH (09:15)
[2019-01-24] MEDS ORDERED: HALDOL IV PRN (09:20)
[2019-01-24] MEDS: PEPCID IV SCH ×2 (10:00→21:08)
[2019-01-24] MEDS: DULCOLAX PR SCH ×2 (10:00→21:08)
[2019-01-24] MEDS: SODIUM CHLORIDE 0.9% INJ SCH (10:00)
[2019-01-24] MEDS: LASIX IV SCH (10:00)
[2019-01-24] MEDS: LANOXIN IV SCH (10:00)
[2019-01-24] MEDS ORDERED: NS 50 ML ONE (10:11)
--- NOTE | 2019-01-24 10:41 | PROGRESS NOTE ---
DATE: 01/24/2019 SUBJECTIVE: The patient according to nursing staff has been very disoriented and combative last night. He needed to be in 4-corner restraint. At this point this morning, he is still a little bit sleepy, but more awake in comparing with yesterday. He has received Ativan, but apparently even with that medication he has been up most part of the night. OBJECTIVE: Vital Signs: Temperature 97.7 degrees, heart rate 72, respiratory 17, blood pressure 128/92, O2 saturation 100% by 3 L nasal cannula. General examination: This is a chronically ill appearing and looking older than his stated age, 58-year-old male, lying in bed in no acute distress. HEENT: Head is normocephalic, atraumatic. Patient has NG tube with yellowish drainage coming out Neck: No JVD noted. No carotid bruits. No lymphadenopathy. Cardiovascular exam: S1, S2 heard. Irregularly irregular, but no murmurs, gallops, or rubs. Respiratory exam: Minimal crackles or rhonchi noted in both pulmonary bases. Patient not using any accessory muscles or having work of breathing. Abdomen: Soft. A little bit distended. Same in comparing with yesterday. The abdomen is tympanic to percussion. No signs of peritoneal irritation. Extremities: No clubbing, cyanosis, or edema. Peripheral pulses present in both legs. Genitourinary: Patient has a Suarez catheter. Skin: There is an abrasion in the right inner thigh covered by dressing. No fluctuance noted. Neurological exam: Patient is sleepy, but wakes to verbal stimuli. Patient is oriented to person and place. LABORATORY DATA: 1. White cell count 20.15, hemoglobin 12.4, hematocrit 37.7, platelets 705. 2. BMP remarkable for potassium 3.3. Normal creatinine. ASSESSMENT AND PLAN: 1. Acute hypoxemic respiratory failure secondary to right lower lobe pneumonia and right lower lobe pleural effusion. White cell count is a little bit better; it has dropped from 23,000 to 20. The patient has been on intravenous steroids for gout; it has been stopped. Currently the patient is still receiving vancomycin and Zosyn. We will continue with same management. 2. Atrial fibrillation with rapid ventricular response with congestive heart failure with ejection fraction of 40%. Currently, this patient is stable. The patient is receiving metoprolol and digoxin intravenous. Heart rate is well controlled. We will continue with same management. 3. Colonic ileus. We will continue with nasogastric tube to low intermittent suction and rectal tube as well. In the physical exam, there is less abdominal distention. 4. Right inner thigh hematoma that has been drained by Interventional Radiology. 5. Acute gouty flare. Aware. Intravenous steroid has been stopped. 6. Disposition: I think this patient is medically stable. They were now to be sent to [facility]. cc: Chandrakant Tellez MD MTDD
[2019-01-24] MEDS: FOLIC ACID PO SCH (11:03)
[2019-01-24] MEDS: MIRALAX PO SCH (11:03)
[2019-01-24] MEDS: VITAMIN B-1 PO SCH (11:03)
[2019-01-24] MEDS: COLCRYS PO SCH ×2 (11:03→21:08)
[2019-01-24] MEDS: LIBRIUM NG SCH ×3 (11:03→16:49)
--- NOTE | 2019-01-24 14:33 | INFECTIOUS DISEASE PROGRESS NO ---
DATE: 01/24/2019 PRESENT ILLNESS: The patient had fever and leukocytosis. The temperature was 102 on January 21, and he has not had any fever since that time. The patient, however, does continue to have a leukocytosis. The cause of the of this leukocytosis is uncertain to me at this time. MEDICATIONS: This is the 12th day of treatment with the combination of vancomycin and Zosyn. PHYSICAL EXAMINATION: Vital Signs: Temperature is 98 degrees, pulse 88, respirations 17, blood pressure is 134/95. General: This is a somewhat ill-appearing, middle-aged male. He is in no acute distress. He does have restraints on all of his extremities. Head, Eyes, Ears, Nose, Throat: There is no drainage from the nose or ears. I could not get a good view of his mouth. Neck: No meningismus. Lungs: Clear to auscultation. Cardiovascular: Cardiovascular heart rate is regular. Abdomen: Soft and nontender. Extremities: The right leg is less indurated and swollen than it was a few days ago. Neurologic: The patient is getting sedation. He is lethargic. LAB AND X-RAY: The CBC today shows a white count of 20,150, hemoglobin 12.4, and platelet count 705,000. Creatinine is 0.8, GFR is greater than 60. The patient's right leg aspirate culture was negative. Chest x-ray shows atelectatic changes but no infiltrates. ASSESSMENT AND PLAN: The patient does not have fever but he continues to have leukocytosis. The patient also has had 12 days of antibiotics namely vancomycin and Zosyn. I am going to discontinue the patient's antibiotics and follow the patient clinically because I am uncertain as to why the white count remains elevated. The patient at one time was on steroids, but they have been stopped for about 2 or 3 days now and thus I would expect the white count to have fallen if it was due to the steroids. At this time I also can't find a definite infection that would be causing the patient's leukocytosis. COMORBIDITIES: The patient is an alcoholic. He has congestive heart failure and atrial fibrillation. He has a history of colon cancer. cc: Richie Razo MD
--- NOTE | 2019-01-24 15:05 | PULMONOLOGY PROGRESS NOTE ---
DATE: 01/24/2019 INTERIM HISTORY: Patient became confused last night and was placed in restraints. This morning he appears awake, alert, conversant, and calm. He is having bowel movements. OBJECTIVE: Vital Signs: The patient has been afebrile for the last 24 hours. BP 134/95, heart rate 82, respiratory rate 16, oxygen saturation 100% on 3 L per nasal cannula. HEENT: Pupils are equal and reactive. Oropharynx is clear. Neck: Supple. Chest: Reveals occasional crackles at the right base. Cardiac exam: S1, S2. Abdomen: Soft with positive bowel sounds. Extremities: Without edema. LABORATORIES: White blood count 20,000, hemoglobin 12.4, platelet count 705,000. Sodium 139, potassium 3.3, chloride 98, bicarbonate 29, BUN 35, creatinine 0.8. IMPRESSIONS: 1. Hypoxemic respiratory failure. 2. Small pleural effusion. 3. Colonic ileus. 4. Delirium with fluctuating mental status. 5. Soft tissue density in the right thigh with negative cultures on aspiration. 6. Chronic obstructive pulmonary disease. 7. Respiratory failure. PLAN: 1. The patient needs to be mobilized. Will reconsult physical therapy. 2. Continue Aminosyn and lipids. 3. Consider advancing diet as his colonic ileus resolves. cc: Mao Burk MD
[2019-01-24] MEDS ORDERED: VANCOMYCIN 1,500 MG in NS 250 ML IV SCH (17:00)
[2019-01-25] MEDS: CLINIMIX E 4.25%-5% SOLUTION 1,000 ML IV SCH ×3 (01:08→21:22)
[2019-01-25] MEDS: XOPENEX NEB INH SCH ×6 (03:11→23:00)
[2019-01-25] MEDS: ATROVENT NEB INH SCH ×6 (03:11→23:00)
[2019-01-25 05:54] LABS: BASO# 0.04 X1000 (0.0-0.2); BASO% 0.2 % (0.0-0.8); EOS# 0.07 X1000 (0.0-0.7); EOS% 0.3 % (0.0-10.0); HEMATOCRIT 36.8 % (42.0-52.0); HEMOGLOBIN 12.3 g/dL (14.0-18.0); IMM GRAN# 0.29 X1000 (0.0-0.04); IMM GRAN% 1.3 % (0.0-0.5); LYMPH# 0.86 X1000 (1.2-3.4); LYMPH% 3.8 % (20.5-51.1); MCH 33.7 PG (27-31); MCHC 33.4 g/dL (33-37); MCV 100.8 FL (81-99); MONO# 0.86 X1000 (0.11-0.59); MONO% 3.8 % (1.7-9.3); MPV 11.4 FL (7.4-10.4); NEUT# 20.31 X1000 (1.4-6.5); NEUT% 90.6 % (42.2-75.2); PLT 666 X1000 (130-400); RBC 3.65 XMIL (4.7-6.1); RDW 16.8 % (11.5-14.5); WBC 22.43 X1000 (4.8-10.8)
[2019-01-25 05:58] LABS: AGAP 13; BUN 35 mg/dL (8-22); CALCIUM 9.2 mg/dL (8.8-10.2); CHLORIDE 98 mmol/L (98-107); COSMO 286; CREATININE 0.7 mg/dL (0.7-1.2); ESTIMATED GFR > 60; GLUCOSE 104 mg/dL (70-104); MAGNESIUM 1.7 mg/dL (1.5-2.7); POTASSIUM 3.5 mmol/L (3.5-5.1); SODIUM 139 mmol/L (136-145); TCO2 28 mmol/L (25-35)
[2019-01-25 06:00] LABS: MONO 12 % (1-9); SEGS 86 % (42-75)
[2019-01-25] MEDS: LOPRESSOR IV SCH ×4 (06:11→21:21)
--- NOTE | 2019-01-25 07:33 | Diag Imaging Result Doc PS360 ---
EXAM: CHEST-PORTABLE INDICATION: abnormal exam TECHNIQUE: One view COMPARISON: 01/23/2019 FINDINGS: The NG tube appears to be in stable position. Mild linear atelectasis at the left lower lung zone is unchanged. There appears to have been slight improvement of interstitial edema at the lung bases, particularly on the right. No new consolidation is identified. Cardiac silhouette is stable. IMPRESSION: Interval slight improvement as described. Electronically signed by Gallo Downs 01/25/2019 7:32 AM
[2019-01-25] MEDS: LIPOSYN 20% 250 ML IV SCH (07:58)
[2019-01-25] MEDS: COLCRYS PO SCH ×2 (08:01→21:22)
[2019-01-25] MEDS: DULCOLAX PR SCH ×2 (08:01→21:22)
[2019-01-25] MEDS: FOLIC ACID PO SCH (08:01)
[2019-01-25] MEDS: LANOXIN IV SCH (08:01)
[2019-01-25] MEDS: LASIX IV SCH (08:03)
[2019-01-25] MEDS: LIBRIUM NG SCH ×3 (08:05→17:18)
[2019-01-25] MEDS: MIRALAX PO SCH (08:06)
[2019-01-25] MEDS: VITAMIN B-1 PO SCH (08:06)
[2019-01-25] MEDS: PEPCID IV SCH ×2 (08:08→21:21)
[2019-01-25] MEDS: SODIUM CHLORIDE 0.9% INJ SCH ×2 (08:08→21:22)
--- NOTE | 2019-01-25 09:32 | PROGRESS NOTE ---
DATE: 01/25/2019 SUBJECTIVE: The patient is definitely more alert and awake today. Able to have a good conversation with me. According to nursing staff, he has not been combative or disoriented last night. No other issues noted. OBJECTIVE: Vital Signs: Temperature 97.8 degrees, heart rate 93, respiratory 19, blood pressure 147/108, O2 saturation 100% 2 L nasal cannula. General Examination: This is a chronically ill- appearing, looking older than his stated age, 58-year-old male, lying in bed in no acute distress. HEENT: Head is normocephalic, atraumatic. NG tube is still in place with yellowish drainage coming out. Neck: No JVD noted. No carotid bruits. No lymphadenopathy. No thyromegaly. Cardiovascular exam: S1, S2 heard. Irregularly irregular, but no murmurs, gallops or rubs noted. Respiratory exam: Minimal crackles and rhonchi is noted in both lung bases. Patient not using any accessory muscles or having work of breathing. Abdomen: Soft, a little bit distended, the same compared with yesterday. Abdomen is tympanic to palpation. No signs of peritoneal irritation. Rectal: There is no rectal tube in place. Extremities: No clubbing, cyanosis. Peripheral pulses present in both legs. Genitourinary: Patient has a Suarez catheter. Skin: There is a small wound in the right inner thigh covered by dressing. No fluctuance noted. Neurological examination: Patient is more awake today compared with yesterday, less sleepy. LABORATORY DATA: White cell count is 22.43 with hemoglobin 12.3, hematocrit 36.8, platelets having checked and normal BMP. ASSESSMENT AND PLAN: 1. Acute respiratory failure secondary to right lower lobe pneumonia, right lower lobe pleural effusion. White cell count is a little bit higher today. He has been 11 days on vancomycin and Zosyn, but apparently his white cell count has not improved yet. Dr. Razo from Infectious Disease has been following this patient and decided to stop both antibiotics because we are not sure what kind of infection we are treating. In any case, we will continue with the same management. He has been receiving steroids, but has not been provided to him in the last 3 days. We will continue to monitor. 2. Atrial fibrillation with rapid ventricular response. Congestive heart failure with ejection fraction of 40%. The patient is stable. We will continue with metoprolol and digoxin intravenous. We will continue with the same management. 3. Colonic ileus. We will continue with nasogastric tube to low intermittent suction. 4. Right inner thigh hematoma, aware. We have suspected abscess, but we were not able to find any infection. 5. Acute gouty flare. Aware. Not on any medication right now. 6. Disposition: I think the patient is medically stable. Finally he will be sent to [facility]. cc: Chandrakant Tellez MD
[2019-01-25 16:43] LABS: URINE SOURCE CATH
[2019-01-25 16:49] LABS: BILIRUBIN URINE NEGATIVE (NEGATIVE); BLOOD URINE NEGATIVE (NEGATIVE); COLOR YELLOW; GLUCOSE URINE NEGATIVE (NEGATIVE); KETONE URINE NEGATIVE (NEGATIVE); LEUKOCYTES URINE NEGATIVE (NEGATIVE); NITRITE URINE NEGATIVE (NEGATIVE); PROTEIN URINE TRACE mg/dL (NEGATIVE); SP GRAVITY URINE 1.014; TURBIDITY URINE CLEAR (CLEAR); UR EPITHELIAL CELLS <10 /HPF (<10); URINE BACTERIA NEGATIVE /HPF; URINE RBC <10 /HPF (<10); URINE WBC <10 /HPF (<10); UROBILINOGEN URINE NORMAL (NORMAL)
--- NOTE | 2019-01-25 17:18 | INFECTIOUS DISEASE PROGRESS NO ---
DATE: 01/25/2019 HISTORY OF PRESENT ILLNESS: The patient previously had been having fever and leukocytosis. His last fever was January 21; however, he continues to have leukocytosis, the exact etiology of which is uncertain to me at this time. MEDICATIONS: I discontinued the patient's antibiotics, namely vancomycin and Zosyn, yesterday. PHYSICAL EXAMINATION: Vital Signs: Temperature is 98.2, pulse 98,respirations 16, blood pressure 137/88. General: This is an ill-appearing middle-aged male. He is in no acute distress. Head, Eyes, Ears, Nose and Throat: He can hear my spoken words and see near objects. He does not have any white patches in his mouth. Neck: No meningismus. Lungs: Clear to auscultation. Cardiovascular: Heart rate is irregular. Abdomen: Soft and nontender. Extremities: The right leg is still a little bit indurated and swollen, but overall it is less than it was a few days ago. The thigh is no longer tender. Neurologic: The patient is alert. He can carry on a coherent conversation. He does not have a tremor. LAB AND X-RAY: CBC today shows a white count of 22,430, hemoglobin of 12.3 and platelets 666,000. Creatinine is 0.7. GFR is greater than 60. Chest x-ray shows improvement in the bibasilar edema. ASSESSMENT/PLAN: The patient has leukocytosis. For now, I am not going to start any antibiotic. I am going to send a catheterized urine for a urinalysis and culture. COMORBIDITIES: The patient is an alcoholic. He also has congestive heart failure and atrial fibrillation. He has a history of colon cancer. cc: Richie Razo MD [facility]
--- NOTE | 2019-01-26 00:44 | PULMONOLOGY PROGRESS NOTE ---
DATE: 01/25/2019 SUBJECTIVE: The patient is awake, alert, and conversant. He reports he feels better. He is asking when he can start eating. OBJECTIVE: Vital signs: The patient has been afebrile for the last 24 hours. Blood pressure 113/72, heart rate 83, respiratory rate 16, oxygen saturation 95% on 2 L per nasal cannula. HEENT: Pupils are equal and reactive. He has some dermatitis on the face. Oropharynx appears clear. Neck: Supple. Chest: Reveals good air entry bilaterally without wheezing or rhonchi. Cardiac: S1, S2. Abdomen: Softer with positive bowel sounds. Extremities: Without edema. LABORATORIES: Chest x-ray reveals continued improvement with decreased edema in the lung bases. White blood count 22,000, hemoglobin 12.3, platelet count 666,000. Sodium 139, potassium 3.5, chloride 98, bicarbonate 28, BUN 35, creatinine 0.7. IMPRESSION: A 58-year-old with 1. Hypoxemic respiratory failure. 2. Chronic obstructive pulmonary disease. 3. Resolving pleural effusions. 4. Colonic ileus. 5. Delirium with continued improvement. PLAN: 1. Continue Aminosyn and lipids today. Would recommend obtaining a KUB tomorrow, and if it continues to show improvement in the colonic ileus, I would consider discontinuing the NG tube and allowing him to advance his diet. 2. Continue to wean oxygen as tolerated. 3. Cautioned about the use of alcohol and tobacco. cc: Mao Burk MD
[2019-01-26] MEDS: ATROVENT NEB INH SCH ×6 (03:35→23:37)
[2019-01-26] MEDS: XOPENEX NEB INH SCH ×6 (03:35→23:37)
[2019-01-26] MEDS: LOPRESSOR IV SCH (03:38)
[2019-01-26 05:54] LABS: BASO# 0.05 X1000 (0.0-0.2); BASO% 0.2 % (0.0-0.8); EOS# 0.06 X1000 (0.0-0.7); EOS% 0.3 % (0.0-10.0); HEMATOCRIT 36.4 % (42.0-52.0); IMM GRAN# 0.41 X1000 (0.0-0.04); IMM GRAN% 1.9 % (0.0-0.5); LYMPH# 1.07 X1000 (1.2-3.4); LYMPH% 5.1 % (20.5-51.1); MCH 32.9 PG (27-31); MCV 99.7 FL (81-99); MONO% 3.8 % (1.7-9.3); MPV 11.6 FL (7.4-10.4); NEUT# 18.72 X1000 (1.4-6.5); NEUT% 88.7 % (42.2-75.2); PLT 608 X1000 (130-400); RBC 3.65 XMIL (4.7-6.1); WBC 21.11 X1000 (4.8-10.8)
[2019-01-26 06:14] LABS: AGAP 10; BUN 37 mg/dL (8-22); CALCIUM 8.9 mg/dL (8.8-10.2); CHLORIDE 98 mmol/L (98-107); COSMO 281; CREATININE 0.7 mg/dL (0.7-1.2); ESTIMATED GFR > 60; GLUCOSE 108 mg/dL (70-104); POTASSIUM 3.9 mmol/L (3.5-5.1); SODIUM 136 mmol/L (136-145); TCO2 28 mmol/L (25-35)
--- NOTE | 2019-01-26 07:35 | Diag Imaging Result Doc PS360 ---
EXAM: KUB ABDOMEN INDICATION: colonic ileus TECHNIQUE: 2 views COMPARISON: 01/23/2019 FINDINGS: The NG tube seen previously has been retracted or has been replaced by another tube. The tube in place on the current study projects a few centimeters below the diaphragm but is still likely in the lumen of the stomach. There has been interval improvement of gaseous distention of bowel, which was dominant colonic. There is still mild to moderate distention of several loops of colon as well as small bowel in the left side of the abdomen. There is no evidence of large volume free abdominal gas. The abdomen is stable, otherwise. IMPRESSION: Interval improvement of gaseous distention of bowel. Electronically signed by Gallo Downs 01/26/2019 7:32 AM
--- NOTE | 2019-01-26 07:39 | Diag Imaging Result Doc PS360 ---
EXAM: CHEST-PORTABLE INDICATION: NG tube placement TECHNIQUE: One view COMPARISON: 01/25/2019 FINDINGS: The newly placed NG tube projects a few centimeters below the diaphragm and is assumed to be in the lumen of the stomach in expected position. There has been improvement of atelectasis at the left lower lung zone and improvement of interstitial edema at the lung bases. No new consolidation is identified. Cardiac silhouette is stable. IMPRESSION: NG tube identified in the expected position as described. Interval improvement of mild basilar edema. Electronically signed by Gallo Downs 01/26/2019 7:37 AM
[2019-01-26] MEDS: CLINIMIX E 4.25%-5% SOLUTION 1,000 ML IV SCH ×2 (08:19→18:04)
[2019-01-26] MEDS: LIPOSYN 20% 250 ML IV SCH (08:19)
[2019-01-26] MEDS: LASIX IV SCH (08:23)
[2019-01-26] MEDS: LANOXIN IV SCH (08:24)
[2019-01-26] MEDS: PEPCID IV SCH ×2 (08:24→20:30)
[2019-01-26] MEDS ORDERED: ATIVAN IV PRN (08:56)
[2019-01-26] MEDS ORDERED: LOPRESSOR IV PRN (08:56)
[2019-01-26] MEDS ORDERED: LIBRIUM PO SCH (09:41)
[2019-01-26] MEDS: VITAMIN B-1 PO SCH (09:49)
[2019-01-26] MEDS: FOLIC ACID PO SCH (09:49)
[2019-01-26] MEDS: CARDIZEM PO SCH ×3 (09:49→20:30)
[2019-01-26] MEDS: MIRALAX PO SCH (09:50)
[2019-01-26] MEDS: TORADOL IV SCH ×3 (09:50→20:30)
[2019-01-26] MEDS: COLCRYS PO SCH ×2 (09:50→20:30)
[2019-01-26] MEDS: DULCOLAX PR SCH ×2 (09:50→20:26)
[2019-01-26] MEDS: PRILOSEC PO SCH (10:02)
--- NOTE | 2019-01-26 13:19 | INFECTIOUS DISEASE PROGRESS NO ---
DATE: 01/26/2019 PRESENT ILLNESS: The patient had been having fever and leukocytosis. He is no longer having fever, but he continues to have a leukocytosis, the etiology of which is uncertain to me at this time. MEDICATIONS: The patient is not on any antibiotics or steroids. PHYSICAL EXAMINATION: Vital Signs: Temperature is 98.4 degrees, pulse 95, respirations 18, blood pressure 113/88. General: This is a somewhat ill-appearing, middle-aged male. He is in no acute distress. Head, eyes, ears, nose, and throat: He can hear my spoken words and see near objects. He does not have any drainage coming from his nose or ears. He does not have any white patches in his mouth. Neck: No pain in his neck when he moves it. Lungs: Clear to auscultation. Cardiovascular: Heart rate is irregular. Abdomen: Soft and nontender. Extremities: The patient's right leg swelling continues to get better. The leg is not tender. Neurologic: The patient is alert and he was talking, however, he was not oriented as to time. He does not have a tremor. Integument: No rash noted. LAB AND X-RAY STUDIES: White count still is elevated. It is 21,110 today, hemoglobin is 12 and platelet count is 608,000, creatinine 0.7, GFR is greater than 60. Urine culture is pending. ASSESSMENT AND PLAN: For right now, I am not going to start any antibiotics. Instead I am going to wait for the results of the urine culture, which was a catheterized specimen. We will be repeating the patient's white blood cell count at the first of next week. COMORBIDITIES: The patient is an alcoholic. He also has congestive heart failure and atrial fibrillation and he also has a history of colon cancer. cc: Richie Razo MD
--- NOTE | 2019-01-26 14:12 | PROGRESS NOTE ---
DATE: 01/26/2019 SUBJECTIVE: Patient seems to be more alert and awake. He has been a little bit agitated overnight and pulled out his NG tube that has been replaced yesterday. According to nursing staff, no other complaints noted. OBJECTIVE: Vital Signs: Temperature 98.3 degrees, heart rate 91, respiratory rate 17, blood pressure 123/81, O2 saturation 97% 2 L nasal cannula. General Examination: This is a chronically ill-appearing and frail, 58-year-old male, looking older than his stated age, lying in bed, in no acute distress. HEENT: Head is normocephalic, atraumatic. Mucous membranes very dry. NG tube is in place. Neck: No JVD noted. No carotid bruits. No lymphadenopathy. No thyromegaly. Cardiovascular: S1-S2 heard. Irregularly irregular. No murmurs, gallops, or rubs noted. Respiratory: Minimal crackles and rhonchi noted in both bases. Patient not using any accessory muscles or having work of breathing resolved. Abdomen: Definitely distended, nontender to palpation. Bowel sounds present. No organomegaly. Extremities: No clubbing or cyanosis. Peripheral pulses present in both legs. Patient has a Suarez catheter in place. skin: There is a dressing covering the right inner thigh. Neurological: Patient more alert, awake comparing with yesterday. LABORATORY DATA: White cell count 21.11, hemoglobin 12, hematocrit 36.4, platelets 608,000. BMP that is okay. ASSESSMENT/PLAN: 1. Acute respiratory failure secondary to right lower lobe pneumonia, right lower lobe pleural effusion. White cell count is apparently up today. The patient is not on any antibiotics for the last 2 to 3 days. He has persistent leukocytosis. At this point we will continue to monitor this patient 2. Atrial fibrillation with rapid ventricular rate and congestive heart failure with ejection fraction of 40%. The patient is stable. We will continue with digoxin, metoprolol and Lasix. 3. Colonic ileus. There has been an improvement in that condition so at this point, I prefer to discontinue NG tube and rectal tube and allow him to have on clear liquid diet and see how he does. 5. Acute gouty flare. Will star Toradol on this patient and see how this patient does. DISPOSITION: We will continue to monitor this patient closely in the [facility]. cc: Chandrakant Tellez MD MTDD
[2019-01-26] MEDS: LIBRIUM PO SCH ×2 (14:59→20:48)
[2019-01-26] MEDS: HALDOL IV SCH (20:30)
[2019-01-27] MEDS: TORADOL IV SCH ×4 (02:06→22:03)
[2019-01-27] MEDS: CARDIZEM PO SCH ×4 (02:06→22:03)
[2019-01-27] MEDS: CLINIMIX E 4.25%-5% SOLUTION 1,000 ML IV SCH (03:13)
[2019-01-27] MEDS: XOPENEX NEB INH SCH ×6 (03:57→22:57)
[2019-01-27] MEDS: ATROVENT NEB INH SCH ×6 (03:57→22:57)
[2019-01-27 06:30] LABS: BASO# 0.04 X1000 (0.0-0.2); BASO% 0.3 % (0.0-0.8); EOS# 0.12 X1000 (0.0-0.7); EOS% 0.8 % (0.0-10.0); HEMATOCRIT 33.1 % (42.0-52.0); IMM GRAN# 0.53 X1000 (0.0-0.04); IMM GRAN% 3.7 % (0.0-0.5); MCH 32.9 PG (27-31); MCHC 33.2 g/dL (33-37); MCV 99.1 FL (81-99); MONO# 0.76 X1000 (0.11-0.59); MONO% 5.3 % (1.7-9.3); MPV 11.5 FL (7.4-10.4); NEUT# 11.76 X1000 (1.4-6.5); NEUT% 82.9 % (42.2-75.2); PLT 534 X1000 (130-400); RBC 3.34 XMIL (4.7-6.1); RDW 16.7 % (11.5-14.5); WBC 14.21 X1000 (4.8-10.8)
[2019-01-27 06:47] LABS: ESTIMATED GFR > 60
[2019-01-27 06:54] LABS: AGAP 11; BUN 52 mg/dL (8-22); CALCIUM 8.7 mg/dL (8.8-10.2); CHLORIDE 98 mmol/L (98-107); COSMO 290; CREATININE 0.9 mg/dL (0.7-1.2); GLUCOSE 97 mg/dL (70-104); POTASSIUM 4.2 mmol/L (3.5-5.1); SODIUM 138 mmol/L (136-145); TCO2 29 mmol/L (25-35)
--- NOTE | 2019-01-27 08:43 | PROGRESS NOTE ---
DATE: 01/27/2019 SUBJECTIVE: The patient definitely is more alert and awake. As per nursing staff, he has been sleeping okay last night. He tolerated a clear liquid diet very well. He requests more consistent food today to me. OBJECTIVE: Vital Signs: Temperature 97.3 degrees, heart rate 82, respiratory rate 18, blood pressure 115/77, and O2 saturation 100% on room air. General: This is a chronically ill- appearing and frail, 58-year-old male, looking older than his stated age lying in bed in no acute distress. HEENT: Head is normocephalic, atraumatic. Mucous membranes dry. Neck: No JVD noted. No carotid bruits. No lymphadenopathy. Cardiovascular: S1, S2 heard irregularly irregular, but no murmurs, gallops, or rubs noted. Respiratory: Minimal rhonchi noted in both pulmonary bases. The patient is not using any accessory muscles or having work of breathing. Abdomen: Definitely less distended. Nontender to palpation. Bowel sounds present. No organomegaly. Extremities: No clubbing, cyanosis, or edema. Peripheral pulses present in both legs. The patient had a Suarez catheter. Neurological: Patient is definitely more alert and awake. Moves all 4 extremities spontaneously. LABORATORY DATA: White cell count 14.21, hemoglobin 11.0, hematocrit 33.1 and platelets 534,000. Normal BMP today. ASSESSMENT AND PLAN: 1. Acute respiratory failure secondary to right lower lobe pneumonia. Right lower pleural effusion. The patient is feeling better and all antibiotics have been stopped for the last 3 days. Finally, the white cell count is getting much better. At this point, I think this patient is recovering completely from this infection. 2. Atrial fibrillation with rapid ventricular response. 3. Congestive heart failure with ejection fraction of 40%. The patient is stable. We will continue with digoxin, metoprolol and Lasix as we are doing for the last week. We will continue to monitor. 4. Colonic ileus. I think this condition is resolved. Patient has been tolerating clear liquid diet very well. At this point, we are going to change diet to GI soft, and see how he does. 5. Acute gouty flare up. We will continue with Toradol for the next couple days. 6. Physical deconditioning and physical therapy and occupational therapy involved in his care. 7. Disposition: We will transfer this patient to a regular room today. cc: Chandrakant Tellez MD
[2019-01-27] MEDS: VITAMIN B-1 PO SCH (09:16)
[2019-01-27] MEDS: PRILOSEC PO SCH (09:16)
[2019-01-27] MEDS: LIBRIUM PO SCH ×3 (09:16→22:03)
[2019-01-27] MEDS: PEPCID IV SCH ×2 (09:16→22:03)
[2019-01-27] MEDS: LANOXIN PO SCH (09:16)
[2019-01-27] MEDS: FOLIC ACID PO SCH (09:16)
[2019-01-27] MEDS: COLCRYS PO SCH ×2 (09:16→22:03)
[2019-01-27] MEDS: LASIX PO SCH (09:16)
[2019-01-27] MEDS: SODIUM CHLORIDE 0.9% INJ SCH ×2 (09:16→22:03)
[2019-01-27] MEDS: DULCOLAX PR SCH ×2 (09:17→22:04)
[2019-01-27] MEDS: MIRALAX PO SCH (09:17)
[2019-01-27] MEDS: MORPHINE IV PRN (15:29)
[2019-01-27] MEDS: LIPOSYN 20% 250 ML IV SCH (19:53)
[2019-01-27] MEDS: HALDOL IV SCH (22:03)
[2019-01-28] MEDS: TORADOL IV SCH ×5 (02:37→21:12)
[2019-01-28] MEDS: CARDIZEM PO SCH ×4 (02:37→19:53)
[2019-01-28] MEDS: ATROVENT NEB INH SCH ×6 (04:26→23:33)
[2019-01-28] MEDS: XOPENEX NEB INH SCH ×6 (04:27→23:33)
[2019-01-28 09:49] LABS: BASO# 0.05 X1000 (0.0-0.2); BASO% 0.5 % (0.0-0.8); EOS# 0.12 X1000 (0.0-0.7); EOS% 1.2 % (0.0-10.0); HEMATOCRIT 36.8 % (42.0-52.0); HEMOGLOBIN 12.2 g/dL (14.0-18.0); IMM GRAN# 0.24 X1000 (0.0-0.04); IMM GRAN% 2.4 % (0.0-0.5); LYMPH# 0.99 X1000 (1.2-3.4); LYMPH% 10.1 % (20.5-51.1); MCHC 33.2 g/dL (33-37); MCV 99.5 FL (81-99); MONO# 0.64 X1000 (0.11-0.59); MONO% 6.5 % (1.7-9.3); MPV 11.1 FL (7.4-10.4); NEUT# 7.79 X1000 (1.4-6.5); NEUT% 79.3 % (42.2-75.2); PLT 535 X1000 (130-400); RDW 16.7 % (11.5-14.5); WBC 9.83 X1000 (4.8-10.8)
[2019-01-28] MEDS: LIBRIUM PO SCH ×2 (10:48→15:37)
[2019-01-28] MEDS: FOLIC ACID PO SCH (10:48)
[2019-01-28] MEDS: PRILOSEC PO SCH (10:48)
[2019-01-28] MEDS: LANOXIN PO SCH (10:48)
[2019-01-28] MEDS: PEPCID IV SCH ×3 (10:49→21:12)
[2019-01-28] MEDS: MORPHINE IV PRN ×2 (10:49→15:37)
[2019-01-28] MEDS: LASIX PO SCH (10:49)
[2019-01-28] MEDS: COLCRYS PO SCH ×3 (10:49→21:12)
[2019-01-28] MEDS: VITAMIN B-1 PO SCH (10:49)
[2019-01-28] MEDS: DULCOLAX PR SCH ×3 (10:50→21:12)
[2019-01-28] MEDS: SODIUM CHLORIDE 0.9% INJ SCH (10:50)
[2019-01-28] MEDS: MIRALAX PO SCH (10:50)
--- NOTE | 2019-01-28 13:04 | PROGRESS NOTE ---
DATE: 01/28/2019 SUBJECTIVE: Patient reports feeling fine. He is more alert and awake. He is tolerating food very well. OBJECTIVE: Vital Signs: Temperature 97.9 degrees, heart rate respiratory rate 16, blood pressure 128/70. O2 saturation 96% on room air. General: This is a chronically ill- appearing, 58 -year- old male, lying in bed, in no acute distress. Cardiovascular: S1, S2 heard. Irregularly irregular. No murmurs, gallops, or rubs noted Respiratory: Minimal rhonchi noted in both pulmonary bases. Definitely better in comparing with previous days. The patient is not using any accessory muscles or having work of breathing. Abdomen: Soft, nontender to palpation. Bowel sounds present. No organomegaly. Extremities: No clubbing, cyanosis, or edema. Peripheral pulses S2 heard. Abdomen: Soft. Nontender to palpation. Bowel sounds present. No organomegaly. Extremities: No clubbing, cyanosis, or edema. Peripheral pulses present in both legs. Neurological: Patient is more alert and awake. A little bit slow but moves 4 extremities spontaneously. Have good speech that is coherent. LABORATORY DATA: White cell count 9.83 hemoglobin 10.2, hematocrit 36.8, platelets 535,000 no BMP today. ASSESSMENT AND PLAN: 1. Acute respiratory failure secondary to right lower lobe pneumonia. That condition is definitely much better. The patient is not requiring any oxygen supplementation. At this time, we have done an x-ray 4 days ago which basically show with interval improvement with mild bibasilar edema. At this time considering his clinical status I think this pneumonia is resolved. He is not on any antibiotics. His white cell count is finally back to normal. 2. Atrial fibrillation with rapid ventricular response. Actually, the heart rate is well controlled. We will continue current medications. 3. Congestive heart failure with ejection fraction of 40%, stable, we will continue to monitor. 4. Colonic ileus resolved patient is eating normally. 5. Acute gouty flare. Stable. 6. Physical deconditioning. We will continue with physical therapy. I think this is the only thing pending for him in the hospital and is between him and the door. At this point, we will try to get the if possible physical therapy twice daily to help him to get his strength back because it is not an option for him to go to rehab facility considering that he does not have any insurance. 7. Disposition we will continue to monitor. cc: Chandrakant Tellez MD MTDD
[2019-01-28] MEDS: HALDOL IV SCH ×2 (19:53→21:13)
[2019-01-29] MEDS: TORADOL IV SCH ×2 (01:51→03:34)
[2019-01-29] MEDS: CARDIZEM PO SCH ×4 (01:51→21:16)
[2019-01-29] MEDS: XOPENEX NEB INH SCH ×6 (03:26→23:25)
[2019-01-29] MEDS: ATROVENT NEB INH SCH ×6 (03:27→23:24)
[2019-01-29] MEDS: LIBRIUM PO SCH ×4 (03:35→21:16)
[2019-01-29 07:12] LABS: BASO# 0.04 X1000 (0.0-0.2); BASO% 0.5 % (0.0-0.8); EOS# 0.11 X1000 (0.0-0.7); EOS% 1.4 % (0.0-10.0); HEMOGLOBIN 12.1 g/dL (14.0-18.0); IMM GRAN# 0.15 X1000 (0.0-0.04); IMM GRAN% 1.9 % (0.0-0.5); LYMPH# 0.98 X1000 (1.2-3.4); LYMPH% 12.5 % (20.5-51.1); MCH 33.1 PG (27-31); MCHC 32.7 g/dL (33-37); MCV 101.1 FL (81-99); MONO# 0.56 X1000 (0.11-0.59); MONO% 7.1 % (1.7-9.3); NEUT# 6.01 X1000 (1.4-6.5); NEUT% 76.6 % (42.2-75.2); PLT 483 X1000 (130-400); RBC 3.66 XMIL (4.7-6.1); RDW 16.8 % (11.5-14.5); WBC 7.85 X1000 (4.8-10.8)
[2019-01-29] MEDS: LASIX PO SCH (10:27)
[2019-01-29] MEDS: LANOXIN PO SCH (10:27)
[2019-01-29] MEDS: FOLIC ACID PO SCH (10:27)
[2019-01-29] MEDS: PEPCID IV SCH ×2 (10:27→21:16)
[2019-01-29] MEDS: VITAMIN B-1 PO SCH (10:27)
[2019-01-29] MEDS: PRILOSEC PO SCH (10:27)
[2019-01-29] MEDS: COLCRYS PO SCH ×2 (10:27→21:16)
[2019-01-29] MEDS: MORPHINE IV PRN ×2 (10:28→13:44)
[2019-01-29] MEDS: MIRALAX PO SCH (10:31)
[2019-01-29] MEDS: DULCOLAX PR SCH ×2 (10:32→21:17)
--- NOTE | 2019-01-29 13:01 | PROGRESS NOTE ---
DATE: 01/29/2019 SUBJECTIVE: Patient reports feeling fine. According to nursing staff, he is profoundly weak. He needs 2 to 3 persons to help him to use the bedside commode. Besides that, no other complaints noted. OBJECTIVE: Vital Signs: Temperature 98 degrees, heart rate 65, respiratory rate 20, blood pressure 127/75, and O2 saturation 98% on room air. General: This is a chronically ill- appearing, 58-year-old male lying in bed in no acute distress. Cardiovascular: S1 and S2 heard. Irregularly irregular. No murmurs, gallops, or rubs noted. Respiratory: Minimal rhonchi noted in both pulmonary bases, but definitely better in comparing with previous days. Patient is not using any accessory muscles or having work of breathing. Abdomen: Soft. Nontender to palpation. Bowel sounds present. No organomegaly. Extremities: No clubbing, cyanosis, or edema. Peripheral pulses present in both legs. Neurological: Patient is more alert and awake. A little bit slow but moves 4 extremities. LABORATORY DATA: Reviewed. ASSESSMENT AND PLAN: 1. Acute respiratory failure secondary to right lower lobe pneumonia. That condition is definitely better. The patient is not on any antibiotics and white cell count is back to normal. 2. Atrial fibrillation with rapid ventricular rate. Heart rate is well controlled with oral medications. We will continue with same management. 3. Congestive heart failure with ejection fraction of 40% stable. We will continue to monitor. 4. Acute gouty flare stable. 5. Physical deconditioning after prolonged hospitalization of twenty-four days. Patient has become profoundly debilitated. At this point, considering that he does not have any insurance, we will provide physical therapy twice daily. We will go from there. cc: Chandrakant Tellez MD
--- NOTE | 2019-01-29 19:31 | INFECTIOUS DISEASE PROGRESS NO ---
DATE: 01/29/2019 PRESENT ILLNESS: The patient had been having fever and leukocytosis. He no longer has fever and on today's CBC, he does not have leukocytosis either. MEDICATIONS: The patient is not on any antibiotics. PHYSICAL EXAMINATION: Vital Signs: Temperature is 97.9 degrees, pulse 106, respirations 20, blood pressure 111/80. General: This is a somewhat ill-appearing, middle-aged male. He actually is more alert today and coherent. There is no acute distress. Head, Eyes, Ears, Nose, Throat: He can hear my spoken words and see near objects. He does not have any white coating on his tongue. Neck: He does not have any pain when he moves his neck. Lungs: Clear to auscultation. Cardiovascular: Heart rate is irregular. Abdomen: Soft and nontender. Neurologic: The patient is awake. He moves the neck. He moved his extremities to request. He carried on a coherent conversation. Integument: No rash noted. LAB AND X-RAY: . There is no new radiographic study. Lab studies show a CBC with a white count of 7850, hemoglobin is 12.1, platelet count is 483,000. Culture from the patient's right leg, blood culture, and urine culture are all negative. ASSESSMENT AND PLAN: The patient no longer is having a fever or leukocytosis. My plan is not to treat him with any antibiotics. I am signing off his case, but I am available to see him on a p.r.n. basis. COMORBIDITIES: Alcoholism, congestive heart failure, atrial fibrillation, and history of colon cancer. cc: Richie Razo MD
[2019-01-29] MEDS: HALDOL IV SCH (21:16)
[2019-01-29] MEDS: SODIUM CHLORIDE 0.9% INJ SCH (21:16)
[2019-01-30] MEDS: CARDIZEM PO SCH ×4 (02:49→20:58)
[2019-01-30] MEDS: XOPENEX NEB INH SCH ×6 (03:45→23:23)
[2019-01-30] MEDS: ATROVENT NEB INH SCH ×6 (03:45→23:23)
[2019-01-30 06:04] LABS: BASO# 0.06 X1000 (0.0-0.2); BASO% 0.9 % (0.0-0.8); EOS# 0.15 X1000 (0.0-0.7); EOS% 2.3 % (0.0-10.0); HEMATOCRIT 35.1 % (42.0-52.0); HEMOGLOBIN 11.4 g/dL (14.0-18.0); IMM GRAN# 0.08 X1000 (0.0-0.04); IMM GRAN% 1.2 % (0.0-0.5); LYMPH# 0.71 X1000 (1.2-3.4); LYMPH% 10.7 % (20.5-51.1); MCH 32.6 PG (27-31); MCHC 32.5 g/dL (33-37); MCV 100.3 FL (81-99); MONO# 0.69 X1000 (0.11-0.59); MONO% 10.4 % (1.7-9.3); MPV 10.9 FL (7.4-10.4); NEUT# 4.97 X1000 (1.4-6.5); NEUT% 74.5 % (42.2-75.2); PLT 434 X1000 (130-400); RDW 16.7 % (11.5-14.5); WBC 6.66 X1000 (4.8-10.8)
[2019-01-30 06:32] LABS: AGAP 11; ALB/GLOB RATIO 0.8; ALBUMIN 2.6 g/dL (3.5-5.0); ALKALINE PHOSPHATASE 183 U/L (32-122); BUN 30 mg/dL (8-22); CALCIUM 8.3 mg/dL (8.8-10.2); CHLORIDE 105 mmol/L (98-107); COSMO 285; CREATININE 0.9 mg/dL (0.7-1.2); ESTIMATED GFR > 60; GLUCOSE 87 mg/dL (70-104); GOT 33 U/L (10-34); GPT 29 U/L (10-44); MAGNESIUM 1.5 mg/dL (1.5-2.7); PHOSPHORUS 3.4 mg/dL (2.7-4.5); POTASSIUM 3.9 mmol/L (3.5-5.1); SODIUM 140 mmol/L (136-145); TCO2 24 mmol/L (25-35); TOTAL BILIRUBIN 1.21 mg/dL (0.20-1.00)
--- NOTE | 2019-01-30 07:40 | Diag Imaging Result Doc PS360 ---
EXAM: CHEST-PORTABLE INDICATION: abnormal exam TECHNIQUE: One view COMPARISON: 01/25/2019 FINDINGS: There has been interval removal of the NG tube. There is persistent minimal left basilar subsegmental atelectasis. The lungs are clear, otherwise. There is no discrete pleural fluid collection or pneumothorax. The cardiomediastinal silhouette and central vasculature are grossly unremarkable. IMPRESSION: Stable minimal left basilar atelectasis. No definite acute pathology by plain radiograph, otherwise. Electronically signed by Gallo Downs 01/30/2019 7:38 AM
--- NOTE | 2019-01-30 07:51 | PULMONOLOGY PROGRESS NOTE ---
DATE: 01/30/2019 SUBJECTIVE: The patient is more awake, alert and interactive. He is oriented. He reports he is attempting to take some p.o. intake, but it appears his meal consumption is marginal. OBJECTIVE: The patient has been afebrile for the last 24 hours. Blood pressure 128/75, heart rate 86, respiratory rate 16, oxygen saturation 95% on room air.HEENT: Pupils are equal and reactive. Oropharynx is clear. Neck: Supple. Chest: Reveals good air entry bilaterally without wheezing or rhonchi. Cardiac: Regular rate. Normal S1, normal S2. Abdomen: Soft with slight decreased bowel sounds. Extremities: Without edema. LABORATORIES: White blood count 7.85, hemoglobin 12.1, platelet count 483,000. Sodium 138, potassium 4.2, chloride 98, bicarbonate 29, BUN 52, creatinine 0.9. IMPRESSION: 1. A 58-year-old with hypoxemic respiratory failure. 2. Chronic obstructive pulmonary disease. 3. Effusions. 4. Colonic ileus. 5. Severe deconditioning. 6. Delirium with continued improvement. PLAN: 1. Encourage bronchial hygiene. 2. Encourage p.o. intake. 3. Follow up chest x-ray tomorrow. cc: Mao Burk MD
[2019-01-30] MEDS: LASIX PO SCH (09:14)
[2019-01-30] MEDS: FOLIC ACID PO SCH (09:14)
[2019-01-30] MEDS: LANOXIN PO SCH (09:15)
[2019-01-30] MEDS: PRILOSEC PO SCH (09:15)
[2019-01-30] MEDS: VITAMIN B-1 PO SCH (09:15)
[2019-01-30] MEDS: COLCRYS PO SCH ×2 (09:15→20:57)
[2019-01-30] MEDS: SODIUM CHLORIDE 0.9% INJ SCH ×2 (09:16→20:57)
[2019-01-30] MEDS: LIBRIUM PO SCH (09:16)
[2019-01-30] MEDS: PEPCID IV SCH ×2 (09:16→20:56)
[2019-01-30] MEDS: DULCOLAX PR SCH ×2 (09:17→20:57)
[2019-01-30] MEDS: MIRALAX PO SCH (09:18)
[2019-01-30] MEDS: LIORESAL PO SCH ×2 (13:33→18:25)
--- NOTE | 2019-01-30 15:10 | PROGRESS NOTE ---
DATE: 01/30/2019 SUBJECTIVE: Patient reports feeling fine. He reports feeling very weak. No other complaints noted. OBJECTIVE: Vital Signs: Temperature 99 degrees, heart rate 91, respiratory rate 16, blood pressure 129/84 and O2 saturation 98% on room air. General: This is a chronically ill-appearing, 58-year-old male lying in bed in no acute distress. Cardiovascular: S1, S2 heard. Irregularly irregular heart rhythm but no murmurs, gallops, or rubs noted. Respiratory: Rhonchi is noted in both pulmonary bases but definitely much better in comparing with previous days. The patient is not using any accessory muscles or having work of breathing. Abdomen: Soft, nontender to palpation. Bowel sounds present. No organomegaly. Extremities: No clubbing, cyanosis, or edema. Peripheral pulses present in both legs. Neurological: Patient is more alert and awake. A little bit slow but moves 4 extremities. LABORATORY DATA: Reviewed. ASSESSMENT AND PLAN: 1. Acute respiratory failure secondary to right lower lobe pneumonia. Clinically, patient is doing better. His white cell count is finally back to normal after a few days. He is not on any antibiotics. As per Dr. Razo recommendations. He is not spiking any fever. We have done an x-ray this morning which basically showed stable minimal left basilar atelectasis but no definite acute pathology. At this point, I think we will continue to monitor this patient. 2. Atrial fibrillation with rapid ventricular response. The heart rate is definitely much better controlled for the last previous days. We will continue with his current medications. 3. Congestive heart failure with ejection fraction of 40%. We will continue to monitor. 4. Acute gouty flare resolved. 5. Physical deconditioning. I think after a prolonged hospitalization of 25 days, he has become very weak. Considering that he does not have any insurance, I think we may need to continue with physical therapy twice daily for this patient. 6. Disposition. We will continue to monitor this patient, and continue providing physical therapy twice daily. cc: Chandrakant Tellez MD
[2019-01-30] MEDS: HALDOL IV SCH (20:56)
[2019-01-31] MEDS: CARDIZEM PO SCH ×4 (02:32→20:51)
[2019-01-31] MEDS: ATROVENT NEB INH SCH ×6 (03:46→22:52)
[2019-01-31] MEDS: XOPENEX NEB INH SCH ×6 (03:46→22:52)
--- NOTE | 2019-01-31 10:50 | PROGRESS NOTE ---
DATE: 01/31/2019 SUBJECTIVE: Patient reports feeling fine. Denies any fever or chills. He reports working with physical therapy. OBJECTIVE: Vitals: Temperature 98.3 degrees, heart rate 97, respiratory rate 16, blood pressure 138/66, O2 saturation 98% on room air. General Examination: This is a chronically ill-appearing 50-year-old male, lying in bed, in no acute distress. Cardiovascular: S1, S2 heard. No murmurs, gallops, or rubs. Regular rate and rhythm. Respiratory: Clear bilaterally to auscultation with few coarse breath sounds noted in both pulmonary bases. Patient not using any accessory muscles or having work of breathing. Abdomen: Soft, nontender to palpation. Bowel sounds present. No organomegaly. Extremities: No clubbing, cyanosis, or edema. Peripheral pulses present in both legs. Neurological: Patient is more alert and awake. A little bit slow but moves 4 extremities. LABORATORY DATA: Reviewed. ASSESSMENT AND PLAN: 1. Assessment acute respiratory failure secondary to right lower lobe pneumonia. Clinically, this patient is feeling fine. Now, we are not checking anymore CBC because white cell count is back to normal for the last 3 days. Antibiotics has been stopped by ID less than a week ago. At this point, we will continue to monitor. 2. Atrial fibrillation with rapid ventricular response, controlled with medication. We will continue with same management. 3. Congestive heart failure with ejection fraction of 40%. We will continue to monitor. Currently, this patient is stable, not in any exacerbation. 4. Acute gouty flare, resolved. 5. Physical deconditioning. I think that is the only thing between him and the door right now. We will continue with physical therapy twice daily. DISPOSITION: We will continue to monitor this patient closely, and he will be discharged home once he is stronger. cc: Chandrakant Tellez MD [facility]
[2019-01-31] MEDS: PRILOSEC PO SCH (11:21)
[2019-01-31] MEDS: LASIX PO SCH (11:21)
[2019-01-31] MEDS: VITAMIN B-1 PO SCH (11:21)
[2019-01-31] MEDS: LIORESAL PO SCH ×3 (11:22→17:39)
[2019-01-31] MEDS: SODIUM CHLORIDE 0.9% INJ SCH ×2 (11:22→20:51)
[2019-01-31] MEDS: FOLIC ACID PO SCH (11:22)
[2019-01-31] MEDS: LANOXIN PO SCH (11:22)
[2019-01-31] MEDS: PEPCID IV SCH ×2 (11:22→20:51)
[2019-01-31] MEDS: DULCOLAX PR SCH ×2 (11:25→22:48)
[2019-01-31] MEDS: COLCRYS PO SCH ×2 (11:27→20:51)
[2019-01-31] MEDS: MIRALAX PO SCH (11:30)
[2019-01-31] MEDS: HALDOL IV SCH (20:51)
--- NOTE | 2019-01-31 23:12 | PULMONOLOGY PROGRESS NOTE ---
DATE: 01/31/2019 SUBJECTIVE: The patient is awake, alert, and conversant. He denies shortness of breath. He denies cough. He reports he did stand and walk around the bed today. OBJECTIVE: Vital Signs: The patient has been afebrile for the last 24 hours. Blood pressure 119/71, heart rate 90, respiratory rate 14, oxygen saturation 100% on room air. HEENT: Pupils are equal and reactive. Oropharynx is clear. Neck: Supple. Chest: Reveals good air entry bilaterally without wheezing or rhonchi. Cardiac: S1, S2. Abdomen: Soft. Extremities: Without edema. LABORATORIES: Chest x-ray reveals minimal linear atelectasis left base, but no significant cardiopulmonary disease. IMPRESSION: A 58-year-old with 1. Chronic obstructive pulmonary disease. 2. Effusions which have resolved. 3. Acute hypoxemic respiratory failure, which has resolved. 4. Delirium with continued improvement. PLAN: 1. Recommend smoking cessation. 2. Continue physical therapy. 3. No additional pulmonary recommendations. We will sign off. Please reconsult if necessary. cc: Mao Burk MD
[2019-02-01] MEDS: CARDIZEM PO SCH ×4 (01:58→21:29)
[2019-02-01] MEDS: XOPENEX NEB INH SCH ×6 (03:41→23:42)
[2019-02-01] MEDS: ATROVENT NEB INH SCH ×6 (03:41→23:42)
[2019-02-01] MEDS: VITAMIN B-1 PO SCH (08:28)
[2019-02-01] MEDS: PRILOSEC PO SCH (08:28)
[2019-02-01] MEDS: MIRALAX PO SCH (08:28)
[2019-02-01] MEDS: LIORESAL PO SCH ×3 (08:28→16:48)
[2019-02-01] MEDS: COLCRYS PO SCH ×2 (08:28→22:32)
[2019-02-01] MEDS: LANOXIN PO SCH (08:28)
[2019-02-01] MEDS: LASIX PO SCH (08:29)
[2019-02-01] MEDS: DULCOLAX PR SCH ×2 (08:31→22:32)
[2019-02-01] MEDS: PEPCID IV SCH ×2 (08:35→22:31)
[2019-02-01] MEDS: FOLIC ACID PO SCH (09:26)
--- NOTE | 2019-02-01 13:38 | PROGRESS NOTE ---
DATE: 02/01/2019 SUBJECTIVE: Patient reports feeling fine. He is still feeling weak but getting better with physical therapy on a daily basis. OBJECTIVE: Vital Signs: Temperature 98.1 degrees, heart rate 90s, respiratory rate 21, blood pressure 110/80, O2 saturation 97% on room air. General: This is a chronically ill-appearing, 58- year-old male, lying in bed, in no acute distress. Cardiovascular: S1, S2 heard. No murmurs, gallops, or rubs. Regular rate and rhythm. Respiratory: Clear bilaterally to auscultation. No work of breathing or using accessory muscles. Abdomen: Soft, nontender to palpation. Bowel sounds present. No organomegaly. Extremities: No clubbing, cyanosis, or edema. Peripheral pulses present in both legs. Neurological: Patient alert and oriented x3. Moves 4 extremities. ASSESSMENT AND PLAN: 1. Acute respiratory failure secondary to right lower lobe pneumonia. Resolved. Patient is feeling fine. 2. Atrial fibrillation with rapid ventricular response. We will continue with current medications. 3. Congestive heart failure with ejection fraction of 40%. We will continue to monitor. The patient is not in any exacerbation. 4. Acute gouty flare. Resolved. 5. Physical deconditioning. I think that is the only problem that this patient has, so will continue physical therapy twice daily. 6. Disposition. We will continue to monitor this patient closely and we will release him once he is much more stronger. cc: Chandraknat Tellez MD
[2019-02-01] MEDS: HALDOL IV SCH (22:31)
[2019-02-02] MEDS: CARDIZEM PO SCH ×4 (02:50→20:21)
[2019-02-02] MEDS: ATROVENT NEB INH SCH ×6 (03:40→23:01)
[2019-02-02] MEDS: XOPENEX NEB INH SCH ×6 (03:40→23:01)
[2019-02-02] MEDS: PRILOSEC PO SCH (08:02)
[2019-02-02] MEDS: MIRALAX PO SCH (08:02)
[2019-02-02] MEDS: LANOXIN PO SCH (08:03)
[2019-02-02] MEDS: VITAMIN B-1 PO SCH (08:03)
[2019-02-02] MEDS: PEPCID IV SCH ×2 (08:03→20:20)
[2019-02-02] MEDS: DULCOLAX PR SCH ×2 (08:03→20:23)
[2019-02-02] MEDS: FOLIC ACID PO SCH (08:03)
[2019-02-02] MEDS: COLCRYS PO SCH ×2 (08:03→20:20)
[2019-02-02] MEDS: LIORESAL PO SCH ×3 (08:04→19:32)
[2019-02-02] MEDS: LASIX PO SCH (08:04)
--- NOTE | 2019-02-02 12:03 | PROGRESS NOTE ---
DATE: 02/02/2019 SUBJECTIVE: The patient reports feeling fine. He continues to work with physical therapy, and apparently he has walked 75 feet yesterday. OBJECTIVE: Vital signs: Temperature 98.5, heart rate 110, respiratory rate 18, blood pressure 103/69, O2 saturation 98% on room air. General: This is a chronically ill-appearing 58-year-old male lying in bed, in no acute distress. Cardiovascular: S1, S2 heard. Tachycardic, but no murmurs, rubs or gallops noted. Respiratory: Clear bilaterally to auscultation. No work of breathing or using accessory muscles. Abdomen: Soft, nontender to palpation. Bowel sounds present. No organomegaly. Extremities: No cyanosis, clubbing or edema. Peripheral pulses present in both legs. Neurologic: The patient is alert and oriented x3, moves all 4 extremities. DIAGNOSTIC DATA: No laboratory data. ASSESSMENT AND PLAN: 1. Acute respiratory failure secondary to right lower lobe pneumonia, resolved. 2. Atrial fibrillation with rapid ventricular response. With current medications, heart rate is under control. 3. Congestive heart failure with ejection fraction of 40%. We will continue to monitor. The patient is not in any exacerbation. We will continue home medications. 4. Acute gouty flare, resolved. 5. Physical deconditioning. I think that is the only problem that this patient has. He is working with physical therapy and doing good progress. DISPOSITION: This patient, I think, does not have any insurance, and the only reason why he is still in the hospital is because he is getting physical therapy. He is profoundly weak. Now he is getting better. My plan is to keep him over the weekend and see on Tuesday or Tuesday how he is doing so he can be discharged home. cc: Chandrakant Tellez MD
--- NOTE | 2019-02-02 12:39 | Diag Imaging Result Doc PS360 ---
EXAM: CHEST-2 VIEWS 02/02/2019 HISTORY: pna TECHNIQUE: PA and lateral chest COMMENT: There is no evidence of acute cardiac or pulmonary disease. Compared to 01/30/2019 there has been no significant change in the appearance of the chest. IMPRESSION: No evidence of acute disease. Electronically signed by Shimon Hinson 02/02/2019 12:37 PM
[2019-02-02 12:57] LABS: BASO# 0.06 X1000 (0.0-0.2); BASO% 0.6 % (0.0-0.8); EOS# 0.43 X1000 (0.0-0.7); HEMATOCRIT 37.9 % (42.0-52.0); HEMOGLOBIN 12.4 g/dL (14.0-18.0); IMM GRAN# 0.02 X1000 (0.0-0.04); IMM GRAN% 0.2 % (0.0-0.5); LYMPH# 0.76 X1000 (1.2-3.4); LYMPH% 7.1 % (20.5-51.1); MCH 32.3 PG (27-31); MCHC 32.7 g/dL (33-37); MCV 98.7 FL (81-99); MONO# 0.68 X1000 (0.11-0.59); MONO% 6.3 % (1.7-9.3); MPV 10.5 FL (7.4-10.4); NEUT# 8.83 X1000 (1.4-6.5); NEUT% 81.8 % (42.2-75.2); PLT 338 X1000 (130-400); RBC 3.84 XMIL (4.7-6.1); RDW 16.4 % (11.5-14.5); WBC 10.78 X1000 (4.8-10.8)
[2019-02-02 13:20] LABS: AGAP 13; ALB/GLOB RATIO 0.8; ALKALINE PHOSPHATASE 196 U/L (32-122); BUN 26 mg/dL (8-22); CALCIUM 9.1 mg/dL (8.8-10.2); CHLORIDE 102 mmol/L (98-107); COSMO 284; CREATININE 1.2 mg/dL (0.7-1.2); ESTIMATED GFR > 60; GLUCOSE 92 mg/dL (70-104); GOT 49 U/L (10-34); GPT 43 U/L (10-44); POTASSIUM 4.1 mmol/L (3.5-5.1); SODIUM 140 mmol/L (136-145); TCO2 25 mmol/L (25-35); TOTAL BILIRUBIN 1.55 mg/dL (0.20-1.00)
[2019-02-02] MEDS: SODIUM CHLORIDE 0.9% INJ SCH (20:20)
[2019-02-02] MEDS: HALDOL IV SCH (20:23)
[2019-02-03] MEDS: CARDIZEM PO SCH ×5 (01:00→23:12)
[2019-02-03] MEDS: ATROVENT NEB INH SCH ×4 (03:22→17:38)
[2019-02-03] MEDS: XOPENEX NEB INH SCH ×6 (03:22→21:15)
[2019-02-03] MEDS: DULCOLAX PR SCH (08:56)
[2019-02-03] MEDS: MIRALAX PO SCH (08:57)
[2019-02-03] MEDS: LIORESAL PO SCH ×3 (08:57→16:32)
[2019-02-03] MEDS: VITAMIN B-1 PO SCH (08:58)
[2019-02-03] MEDS: COLCRYS PO SCH ×3 (08:58→23:12)
[2019-02-03] MEDS: FOLIC ACID PO SCH (08:58)
[2019-02-03] MEDS: LANOXIN PO SCH (08:58)
[2019-02-03] MEDS: PRILOSEC PO SCH (08:58)
[2019-02-03] MEDS: LASIX PO SCH (08:58)
[2019-02-03] MEDS: PEPCID IV SCH (08:59)
[2019-02-03] MEDS ORDERED: TYLENOL PO PRN (15:36)
[2019-02-03] MEDS ORDERED: XOPENEX NEB INH SCH (16:00)
--- NOTE | 2019-02-03 16:01 | PROGRESS NOTE ---
DATE: 02/03/2019 SUBJECTIVE: The patient has no major complaints. He is sitting up in bed. OBJECTIVE: Vital Signs: His heart rate is still running around 100. Blood pressure 138/82, respiratory rate of 18, temperature 94 degrees, satting 100% on room air. Cardiovascular: Regular rate and rhythm. Pulmonary: Bilateral breath sounds. Clear to auscultation. GI: Soft, nontender, nondistended. Bowel sounds were positive. LABORATORY DATA: White count is 10, hemoglobin and hematocrit 12 and 37, platelets 338. Basic was normal. T bilirubin 1.55. PROBLEM LIST: 1. Acute respiratory failure due to pneumonia, stable. 2. Atrial fibrillation with rapid ventricular response. He is currently on Cardizem 30 every 6 hours. We may be able to push that dose a little bit. He is on Lasix. He is on digoxin. He is not being anticoagulated, I am assuming because of a bleeding risk. 3. Congestive heart failure with high end on the ejection fraction of 40%, appears to be stable. Continue regular medications. 4. Gout. He is on colchicine. 5. Severe debilitation and history of chronic alcohol use. We will continue physical therapy and follow. Hopefully, discharge in the next couple days. I have changed some of his medications to oral just to clean up his MAR a little bit, and we will see how he does. cc: John Casiano MD
[2019-02-03] MEDS: PEPCID PO SCH ×2 (21:03→23:13)
[2019-02-03] MEDS: SEROQUEL PO SCH ×2 (21:04→23:13)
[2019-02-04] MEDS: CARDIZEM PO SCH ×5 (01:37→14:48)
[2019-02-04] MEDS: XOPENEX NEB INH SCH ×3 (10:41→21:35)
[2019-02-04] MEDS: PRILOSEC PO SCH (11:14)
[2019-02-04] MEDS: MIRALAX PO SCH (11:14)
[2019-02-04] MEDS: LANOXIN PO SCH (11:14)
[2019-02-04] MEDS: COLCRYS PO SCH ×2 (11:15→20:26)
[2019-02-04] MEDS: VITAMIN B-1 PO SCH (11:15)
[2019-02-04] MEDS: LASIX PO SCH (11:15)
[2019-02-04] MEDS: PEPCID PO SCH ×2 (11:15→20:26)
[2019-02-04] MEDS: FOLIC ACID PO SCH (11:16)
[2019-02-04] MEDS: LIORESAL PO SCH ×3 (11:16→18:49)
--- NOTE | 2019-02-04 19:34 | PROGRESS NOTE ---
DATE: 02/04/2019 SUBJECTIVE: He is kind of slow to respond, but no major issues. No major complaints. OBJECTIVE: Vital signs: Blood pressure 112/87, heart rate 55, respiratory 16, temperature 98 degrees, O2 saturation 99% on room air. Cardiovascular: Regular rate and rhythm. Pulmonary: Bilateral breath sounds. Clear to auscultation. GI: Soft, nontender, nondistended. Bowel sounds are positive. LABORATORY DATA: White count 10, hemoglobin and hematocrit 12 and 37, platelets 338,000. Basic was normal T bilirubin up a bit. PROBLEM LIST: 1. Acute respiratory failure pneumonia that has since resolved. 2. Atrial fibrillation is stable. We will adjust Cardizem to daily dosing. Not currently on anticoagulation. May consider an aspirin. 3. Congestive heart failure appears to be stable. 4. Gout is stable on colchicine. DISPOSITION: Hopefully discharge within next 1 to 2 days. cc: John Casiano MD
[2019-02-04] MEDS ORDERED: CARDIZEM PO SCH (20:15)
[2019-02-04] MEDS: SEROQUEL PO SCH (20:26)
[2019-02-05] MEDS: XOPENEX NEB INH SCH ×3 (09:26→21:10)
[2019-02-05] MEDS: PRILOSEC PO SCH (10:31)
[2019-02-05] MEDS: COLCRYS PO SCH ×2 (10:31→20:47)
[2019-02-05] MEDS: VITAMIN B-1 PO SCH (10:31)
[2019-02-05] MEDS: LIORESAL PO SCH ×2 (10:31→13:41)
[2019-02-05] MEDS: PEPCID PO SCH ×2 (10:31→20:43)
[2019-02-05] MEDS: CARDIZEM CD PO SCH (10:31)
[2019-02-05] MEDS: LASIX PO SCH (10:31)
[2019-02-05] MEDS: MIRALAX PO SCH (10:31)
[2019-02-05] MEDS: FOLIC ACID PO SCH (10:32)
[2019-02-05] MEDS: LANOXIN PO SCH (10:32)
--- NOTE | 2019-02-05 17:58 | PROGRESS NOTE ---
DATE: 02/05/2019 SUBJECTIVE: Patient has no major complaints. OBJECTIVE: Vitals: Blood pressure 112/62, heart rate of 81, respiratory rate 21. Temperature is 97.8 degrees, 97% on room air. Cardiovascular: Regular rate and rhythm. Pulmonary: Bilateral breath sounds, clear to auscultation. GI: Soft, nontender, nondistended. Bowel sounds are positive. LABORATORY DATA: I think there are not any major data points today. He seems more tired today. I am going to decrease his baclofen, decrease his Seroquel and see how he does. Anticipate discharge hopefully tomorrow. He has walked about 15 feet today. Will look at options of him going home tomorrow. cc: John Casiano MD
[2019-02-05] MEDS: TYLENOL PO PRN (20:48)
[2019-02-05] MEDS ORDERED: SEROQUEL PO SCH (21:00)
[2019-02-05] MEDS ORDERED: LIORESAL PO SCH (21:00)
[2019-02-05] MEDS: NS NEB INH SCH (21:10)
[2019-02-06] MEDS: XOPENEX NEB INH SCH ×3 (09:00→22:19)
--- NOTE | 2019-02-06 10:33 | Diag Imaging Result Doc PS360 ---
EXAM: CHEST-2 VIEWS HISTORY: SOB TECHNIQUE: Chest two views COMPARISON: 02/02/2019 FINDINGS: The lungs are well expanded. The heart is not enlarged. The vessels are not distended. There are no infiltrates. No pleural effusions. IMPRESSION: No acute abnormality. No change. Electronically signed by Go Darnell 02/06/2019 10:31 AM
[2019-02-06] MEDS: CARDIZEM CD PO SCH (11:07)
[2019-02-06] MEDS: PRILOSEC PO SCH (11:07)
[2019-02-06] MEDS: MIRALAX PO SCH (11:07)
[2019-02-06] MEDS: VITAMIN B-1 PO SCH (11:07)
[2019-02-06] MEDS: PEPCID PO SCH ×2 (11:07→20:54)
[2019-02-06] MEDS: COLCRYS PO SCH (11:08)
[2019-02-06] MEDS: LASIX PO SCH (11:08)
[2019-02-06] MEDS: LANOXIN PO SCH (11:08)
[2019-02-06] MEDS: FOLIC ACID PO SCH (11:08)
[2019-02-06 11:22] LABS: BASO# 0.07 X1000 (0.0-0.2); BASO% 0.3 % (0.0-0.8); EOS# 0.45 X1000 (0.0-0.7); EOS% 2.1 % (0.0-10.0); HEMATOCRIT 45.2 % (42.0-52.0); HEMOGLOBIN 14.6 g/dL (14.0-18.0); IMM GRAN# 0.06 X1000 (0.0-0.04); IMM GRAN% 0.3 % (0.0-0.5); LYMPH# 0.86 X1000 (1.2-3.4); MCH 32.1 PG (27-31); MCHC 32.3 g/dL (33-37); MCV 99.3 FL (81-99); MONO# 0.94 X1000 (0.11-0.59); MONO% 4.3 % (1.7-9.3); MPV 11.8 FL (7.4-10.4); NEUT# 19.39 X1000 (1.4-6.5); PLT 274 X1000 (130-400); RBC 4.55 XMIL (4.7-6.1); RDW 16.5 % (11.5-14.5); WBC 21.77 X1000 (4.8-10.8)
[2019-02-06 11:29] LABS: CALCIUM 9.4 mg/dL (8.8-10.2); CREATININE 2.2 mg/dL (0.7-1.2)
[2019-02-06 11:39] LABS: BANDS 4 % (0-1); LYMPHS 6 % (21-51); SEGS 90 % (42-75)
[2019-02-06] MEDS ORDERED: NS 500 ML IV ONE (11:58)
[2019-02-06 12:22] LABS: ALLEN TEST YES; BE -1.9 mmoll (-3.0-3.0); BLOOD TYPE ARTERIAL; HCO3-(ACT) 23.4 mmoll (20.0-26.0); METHB 1.1 % (0.0-1.5); O2(CT) 19.6 mL/dL (15.0-23.0); O2HB 94.8 % (95.0-99.0); PCO2(98.6) 28 mmHg (35-45); PO2(98.6) 80 mmHg (60-100); SAMPLE BLOOD; SAO2 97.7 % (95.0-100.0); THB 14.7 g/dL (11.5-17.4); pH(98.6) 7.47 (7.35-7.45)
[2019-02-06 12:23] LABS: MODALITY CANNULA
--- NOTE | 2019-02-06 14:16 | PROGRESS NOTE ---
DATE: 02/06/2019 SUBJECTIVE: Called by nurse this morning because he is very lethargic. She did not feel comfortable giving him his medications, and to me he was a little bit lethargic yesterday as well. OBJECTIVE: Vital Signs: Blood pressure 123/89, heart rate of 108, respiratory rate of 30, and temperature was 97.9 degrees, and 98% on 2 L. Cardiovascular: Regular rate and rhythm. Pulmonary: Bilateral breath sounds. Clear to auscultation. GI: Soft, nondistended. Bowel sounds are positive. He had rhonchorous breath sounds. He has also developed some degree of hypoxia as well for unclear reasons. He is on nasal cannula. Saturations are 97%. Chest x-ray is read as clear, but he does have some rhonchorous breath sounds. LABORATORY DATA: Labs today were drawn after the fact, white count up to 21,000 with 90% segs and 4% bands. His BUN and creatinine increased to 52 and 2.2. He has been on Lasix this whole time I guess for possible CHF. PROBLEMS: 1. New leukocytosis, possibly pneumonia. We will get CT of the chest and start cefepime empirically. ID had been following so they may need to re-evaluate him. He had been doing okay. 2. Acute kidney injury likely from diuretic and poor p.o. intake. We will initiate fluids. Hold nephrotoxic drugs and follow. 3. Atrial fibrillation is so far well controlled. Continue his regular medications, but I am going to stop digoxin. 4. Lethargy, encephalopathy may be multifactorial azotemia, alcohol abuse. He had been on Haldol IV at night. We switched him to Seroquel which he has also discontinued and we will monitor him. Also evaluate for digitoxicity. 5. Disposition: Obviously, he is not going to be able to go home right now until these issues are stabilized. cc: John Casiano MD
--- NOTE | 2019-02-06 14:39 | Diag Imaging Result Doc PS360 ---
CT THORAX W/O CONTRAST - 02/06/2019 INDICATION: new wbc/resp failure COMPARISON: Chest x-ray from earlier today FINDINGS: There is severe COPD. There is some minimal infiltrate in the left lower lobe and some linear atelectasis. No other infiltrates. Airways are clear. No adenopathy. Heart size is top normal. No significant pleural effusions. No significant abnormality in the upper abdomen. There are moderate degenerative changes of the spine. No acute or suspicious bony lesion. IMPRESSION: Severe COPD. Minimal infiltrate/pneumonia in the left lower lobe. This exam was performed using automated exposure control, adjustment of mA or kV according to patient size, and/or use of iterative reconstruction technique Electronically signed by Jose Joiner 02/06/2019 2:36 PM
[2019-02-06] MEDS: MAXIPIME 1 GM in NS 50 ML IV SCH (14:45)
[2019-02-06] MEDS: NS 1,000 ML IV SCH (14:45)
[2019-02-07] MEDS: MAXIPIME 1 GM in NS 50 ML IV SCH ×2 (02:16→11:14)
[2019-02-07] MEDS: NS 1,000 ML IV SCH (03:16)
[2019-02-07 07:15] LABS: BASO# 0.06 X1000 (0.0-0.2); BASO% 0.6 % (0.0-0.8); EOS# 0.73 X1000 (0.0-0.7); EOS% 6.7 % (0.0-10.0); HEMATOCRIT 37.6 % (42.0-52.0); HEMOGLOBIN 12.6 g/dL (14.0-18.0); LYMPH# 0.67 X1000 (1.2-3.4); LYMPH% 6.2 % (20.5-51.1); MCH 33.3 PG (27-31); MCHC 33.5 g/dL (33-37); MCV 99.5 FL (81-99); MONO# 0.45 X1000 (0.11-0.59); MONO% 4.1 % (1.7-9.3); MPV 12.2 FL (7.4-10.4); NEUT# 8.98 X1000 (1.4-6.5); NEUT% 82.4 % (42.2-75.2); PLT 214 X1000 (130-400); RBC 3.78 XMIL (4.7-6.1); WBC 10.89 X1000 (4.8-10.8)
[2019-02-07 07:40] LABS: CALCIUM 8.8 mg/dL (8.8-10.2); CREATININE 1.6 mg/dL (0.7-1.2); POTASSIUM 3.7 mmol/L (3.5-5.1)
[2019-02-07] MEDS ORDERED: D5 1/2 NS 1,000 ML IV SCH (09:45)
[2019-02-07] MEDS: CARDIZEM CD PO SCH (10:01)
[2019-02-07] MEDS: MIRALAX PO SCH (10:02)
[2019-02-07] MEDS: FOLIC ACID PO SCH (10:02)
[2019-02-07] MEDS: PEPCID PO SCH ×2 (10:02→20:22)
[2019-02-07] MEDS: VITAMIN B-1 PO SCH (10:02)
[2019-02-07] MEDS: D5 1/2 NS 1,000 ML IV SCH ×2 (10:10→20:23)
[2019-02-07] MEDS: PRILOSEC PO SCH (10:11)
[2019-02-07] MEDS: XOPENEX NEB INH SCH ×3 (11:27→21:09)
--- NOTE | 2019-02-07 19:08 | PROGRESS NOTE ---
DATE: 02/07/2019 SUBJECTIVE: The patient has no major complaints. OBJECTIVE: Blood pressure is improved. His blood pressure has jumped up to 124/84, heart rate 76, respiratory rate 20, temperature 97.3 degrees, 100% on 4 L.Cardiovascular: Regular rate and rhythm. Pulmonary: Diminished at the bases. GI was soft, nontender. He does have just kind of some purplish discoloration, but he kind of has that chronically. He does seem swollen in his outer extremities. LABORATORY DATA: White count has come down to 10.8, hemoglobin and hematocrit is 12 and 37, platelets of 214,000. Sodium up to 151, BUN and creatinine 52 and 1.6, which is down from 52 and 2.2. His digoxin level unfortunately is 3.4, which is toxic. ASSESSMENT AND PLAN: 1. Digoxin toxicity. He is not bradycardic or hypotensive, so I think we are not going to order any Digibind. We will just hold his digoxin and continue to monitor. We will continue to monitor digoxin levels and follow. 2. Acute kidney injury, likely related to Lasix and poor p.o. intake. We stopped his Lasix. Continue hydration. 3. Hypernatremia, may be related to free water excess from normal saline and dehydration. He is now on D5 half and we will repeat his labs tomorrow. 4. History of atrial fibrillation. He is on Cardizem alone because of the digoxin. 5. Encephalopathy, likely related to azotemia and digoxin toxicity. We will continue to monitor. 6. Left lower lobe pneumonia, possible hospital-acquired. We will continue cefepime and monitor. cc: John Casiano MD
[2019-02-08] MEDS: MAXIPIME 1 GM in NS 50 ML IV SCH ×2 (02:56→12:12)
[2019-02-08 06:47] LABS: BASO# 0.03 X1000 (0.0-0.2); BASO% 0.4 % (0.0-0.8); EOS# 1.28 X1000 (0.0-0.7); EOS% 16.7 % (0.0-10.0); HEMATOCRIT 35.2 % (42.0-52.0); HEMOGLOBIN 11.1 g/dL (14.0-18.0); LYMPH# 0.57 X1000 (1.2-3.4); LYMPH% 7.4 % (20.5-51.1); MCHC 31.5 g/dL (33-37); MCV 101.4 FL (81-99); MONO# 0.43 X1000 (0.11-0.59); MONO% 5.6 % (1.7-9.3); MPV 11.3 FL (7.4-10.4); NEUT# 5.37 X1000 (1.4-6.5); NEUT% 69.9 % (42.2-75.2); PLT 178 X1000 (130-400); RBC 3.47 XMIL (4.7-6.1); RDW 16.6 % (11.5-14.5); WBC 7.68 X1000 (4.8-10.8)
[2019-02-08 07:08] LABS: AGAP 8; BUN 43 mg/dL (8-22); CALCIUM 8.5 mg/dL (8.8-10.2); CHLORIDE 111 mmol/L (98-107); COSMO 294; CREATININE 1.2 mg/dL (0.7-1.2); ESTIMATED GFR > 60; GLUCOSE 98 mg/dL (70-104); POTASSIUM 3.8 mmol/L (3.5-5.1); SODIUM 142 mmol/L (136-145); TCO2 23 mmol/L (25-35)
[2019-02-08 07:21] LABS: DIGOXIN 1.5 ng/mL (0.9-2.0)
[2019-02-08] MEDS: D5 1/2 NS 1,000 ML IV SCH ×2 (09:50→22:39)
[2019-02-08] MEDS: PEPCID PO SCH ×4 (09:51→21:35)
[2019-02-08] MEDS: MIRALAX PO SCH (09:51)
[2019-02-08] MEDS: CARDIZEM CD PO SCH ×3 (09:51→15:38)
[2019-02-08] MEDS: FOLIC ACID PO SCH ×3 (09:51→15:38)
[2019-02-08] MEDS: VITAMIN B-1 PO SCH ×2 (09:52→12:15)
[2019-02-08] MEDS: PRILOSEC PO SCH ×2 (09:52→12:15)
[2019-02-08] MEDS: XOPENEX NEB INH SCH ×3 (11:00→22:36)
--- NOTE | 2019-02-08 19:26 | PROGRESS NOTE ---
DATE: 02/08/2019 SUBJECTIVE: There was some choking and coughing this morning associated with swallowing, but he seems better now. OBJECTIVE: Vital Signs: Blood pressure 111/78, heart rate 71, respiratory rate 22, temperature 98.2 degrees. Cardiovascular: Regular rate and rhythm. Pulmonary: Bilateral breath sounds. Clear to auscultation. Gastrointestinal: Soft, nontender, nondistended. Bowel sounds are positive. LABORATORY: White count 7, hemoglobin and hematocrit 11 and 35, platelets 178,000. Basic was normal. Creatinine is down to 1.2. PROBLEM LIST: 1. Acute kidney injury. He seems like he is doing better. We will continue gentle hydration and follow. 2. Hypernatremia that also seems to be normalizing. We will continue treatment. He is on D5 half-normal and follow. 3. Digoxin toxicity. He is also doing better from that standpoint. Levels are better. 4. Hypernatremia that has since resolved. We will continue to follow. 5. Atrial fibrillation. He is on Cardizem alone and seems to be doing okay. Holding anticoagulation. 6. Left lower lobe pneumonia. We will continue empiric antibiotics and follow. 7. Disposition: He has probably gotten very weak from all of these issues, so we were going to continue PT and discharge hopefully in the next couple of days pending his level of activity. cc: John Casiano MD
[2019-02-09] MEDS: MAXIPIME 2 GM in NS 50 ML IV SCH ×3 (01:48→23:34)
[2019-02-09 06:58] LABS: BASO# 0.02 X1000 (0.0-0.2); BASO% 0.2 % (0.0-0.8); EOS# 1.06 X1000 (0.0-0.7); EOS% 13.1 % (0.0-10.0); HEMATOCRIT 33.6 % (42.0-52.0); HEMOGLOBIN 10.8 g/dL (14.0-18.0); IMM GRAN# 0.02 X1000 (0.0-0.04); IMM GRAN% 0.2 % (0.0-0.5); LYMPH# 0.66 X1000 (1.2-3.4); LYMPH% 8.1 % (20.5-51.1); MCH 32.3 PG (27-31); MCHC 32.1 g/dL (33-37); MCV 100.6 FL (81-99); MONO# 0.36 X1000 (0.11-0.59); MONO% 4.4 % (1.7-9.3); MPV 12.3 FL (7.4-10.4); NEUT# 5.98 X1000 (1.4-6.5); PLT 180 X1000 (130-400); RBC 3.34 XMIL (4.7-6.1); RDW 16.2 % (11.5-14.5)
[2019-02-09] MEDS: D5 1/2 NS 1,000 ML IV SCH (07:13)
[2019-02-09 07:41] LABS: AGAP 12; BUN 29 mg/dL (8-22); CALCIUM 8.2 mg/dL (8.8-10.2); CHLORIDE 109 mmol/L (98-107); COSMO 288; CREATININE 0.9 mg/dL (0.7-1.2); ESTIMATED GFR > 60; GLUCOSE 87 mg/dL (70-104); POTASSIUM 3.1 mmol/L (3.5-5.1); SODIUM 142 mmol/L (136-145); TCO2 21 mmol/L (25-35)
[2019-02-09] MEDS: VITAMIN B-1 PO SCH (08:55)
[2019-02-09] MEDS: PRILOSEC PO SCH (08:55)
[2019-02-09] MEDS: FOLIC ACID PO SCH (08:55)
[2019-02-09] MEDS: PEPCID PO SCH ×2 (08:56→23:35)
[2019-02-09] MEDS: CARDIZEM CD PO SCH (08:56)
[2019-02-09] MEDS: MIRALAX PO SCH (08:56)
[2019-02-09] MEDS ORDERED: KLOR-CON PO ONE (09:38)
[2019-02-09] MEDS ORDERED: MAGNESIUM SULFATE 2 GM/S.W.I. 2 GM/50 ML IVPB IV ONE (09:38)
[2019-02-09] MEDS: XOPENEX NEB INH SCH ×3 (11:15→22:36)
--- NOTE | 2019-02-09 21:17 | PROGRESS NOTE ---
DATE: 02/09/2019 SUBJECTIVE: Patient has no focal complaints. He looks a lot brighter today, more with it. He is still very weak though. OBJECTIVE: Blood pressure 155/80, heart rate 87, respiratory rate 18, temperature 98.5 degrees, 95% on 2 L.Cardiovascular: Regular rate and rhythm. Pulmonary: Bilateral breath sounds. Clear to auscultation. Gastrointestinal: Soft, nontender, nondistended. Bowel sounds are positive. LABORATORY DATA: White count 8, hemoglobin and hematocrit 10 and 33, platelets 180,000. Potassium 3.1, magnesium 1.1. PROBLEM LIST: 1. Acute kidney injury. Continue hydration and follow. That seems to be pretty much resolved. I think we are going to stop fluids today. 2. Hypokalemia, hypomagnesemia. We will supplement and follow. 3. Hypernatremia. That has essentially corrected. Again, trying to stop fluids. 4. Digoxin toxicity. Seems to be doing okay and may be able to resume digoxin soon. 5. Left lower lobe pneumonia. We will continue antibiotics, breathing treatments, and follow. 6. Disposition. We are going to continue working with PT and OT. He is progressing a little bit. He walked about 15 feet. So, hopefully we can get him home soon. cc: John Casiano MD
[2019-02-10 06:35] LABS: BASO# 0.03 X1000 (0.0-0.2); BASO% 0.4 % (0.0-0.8); EOS# 0.59 X1000 (0.0-0.7); EOS% 8.3 % (0.0-10.0); HEMATOCRIT 35.2 % (42.0-52.0); HEMOGLOBIN 11.4 g/dL (14.0-18.0); LYMPH# 0.62 X1000 (1.2-3.4); LYMPH% 8.7 % (20.5-51.1); MCH 32.3 PG (27-31); MCHC 32.4 g/dL (33-37); MCV 99.7 FL (81-99); MONO# 0.31 X1000 (0.11-0.59); MONO% 4.3 % (1.7-9.3); MPV 12.1 FL (7.4-10.4); NEUT# 5.59 X1000 (1.4-6.5); NEUT% 78.3 % (42.2-75.2); PLT 206 X1000 (130-400); RBC 3.53 XMIL (4.7-6.1); RDW 15.9 % (11.5-14.5); WBC 7.14 X1000 (4.8-10.8)
[2019-02-10 06:58] LABS: AGAP 13; BUN 28 mg/dL (8-22); CALCIUM 8.6 mg/dL (8.8-10.2); CHLORIDE 107 mmol/L (98-107); COSMO 284; CREATININE 0.8 mg/dL (0.7-1.2); ESTIMATED GFR > 60; GLUCOSE 86 mg/dL (70-104); POTASSIUM 3.4 mmol/L (3.5-5.1); SODIUM 140 mmol/L (136-145); TCO2 20 mmol/L (25-35)
[2019-02-10 07:03] LABS: DIGOXIN 1.1 ng/mL (0.9-2.0)
[2019-02-10] MEDS: CARDIZEM CD PO SCH (10:00)
[2019-02-10] MEDS: VITAMIN B-1 PO SCH (10:00)
[2019-02-10] MEDS: PEPCID PO SCH ×2 (10:00→20:21)
[2019-02-10] MEDS: FOLIC ACID PO SCH (10:00)
[2019-02-10] MEDS: MIRALAX PO SCH (10:00)
[2019-02-10] MEDS: PRILOSEC PO SCH (10:00)
[2019-02-10] MEDS: XOPENEX NEB INH SCH ×3 (11:03→22:26)
[2019-02-10] MEDS ORDERED: KLOR-CON PO ONE (11:06)
[2019-02-10] MEDS: MAXIPIME 2 GM in NS 50 ML IV SCH ×2 (12:13→23:18)
[2019-02-10] MEDS ORDERED: NS 50 ML ONE (12:19)
--- NOTE | 2019-02-10 15:38 | PROGRESS NOTE ---
DATE: 02/10/2019 SUBJECTIVE: The patient has no major complaints except diarrhea today apparently. OBJECTIVE: Blood pressure 142/96, heart rate 95, respiratory 17, temperature 99.5 degrees.Cardiovascular: Regular rate and rhythm. Pulmonary: Bilateral breath sounds diminished at the bases. GI: Was soft, nontender, nondistended. Bowel sounds are positive. White count 7, hemoglobin and hematocrit 11 and 35, platelets 206,000, potassium 3.4, digoxin is 1.1. PROBLEM LIST: 1. Acute kidney injury. We will continue hydration and follow. Overall that is resolved so we stopped fluids. 2. Hypokalemia that is also improved. 3. Hypernatremia that is also improved. 4. Digoxin toxicity. He is still therapeutic. There is no toxicity at this point. We will need to resume digoxin maybe in a day or 2. 5. Left lower lobe pneumonia. He is on antibiotics, breathing treatments, but now he has developed diarrhea so we will screen for C. difficile. Hopefully, if that is negative, we can stop other treatments. DISPOSITION: I think if he stabilizes, he should be able to go back or we will hopefully be able to get him back to stable enough to go home as there are no outpatient rehab chances for him. cc: John Casiano MD
[2019-02-10] MEDS: LACTINEX PO SCH (17:19)
[2019-02-10] MEDS: IMODIUM PO PRN (20:22)
[2019-02-11 07:01] LABS: BASO# 0.02 X1000 (0.0-0.2); BASO% 0.3 % (0.0-0.8); EOS% 5.7 % (0.0-10.0); HEMATOCRIT 35.8 % (42.0-52.0); HEMOGLOBIN 11.4 g/dL (14.0-18.0); IMM GRAN# 0.03 X1000 (0.0-0.04); IMM GRAN% 0.4 % (0.0-0.5); LYMPH# 0.65 X1000 (1.2-3.4); LYMPH% 9.2 % (20.5-51.1); MCH 31.6 PG (27-31); MCHC 31.8 g/dL (33-37); MCV 99.2 FL (81-99); MONO# 0.62 X1000 (0.11-0.59); MONO% 8.8 % (1.7-9.3); MPV 12.1 FL (7.4-10.4); NEUT# 5.33 X1000 (1.4-6.5); NEUT% 75.6 % (42.2-75.2); PLT 209 X1000 (130-400); RBC 3.61 XMIL (4.7-6.1); RDW 15.8 % (11.5-14.5); WBC 7.05 X1000 (4.8-10.8)
[2019-02-11 07:11] LABS: AGAP 10; BUN 25 mg/dL (8-22); CALCIUM 8.3 mg/dL (8.8-10.2); CHLORIDE 107 mmol/L (98-107); COSMO 283; CREATININE 0.8 mg/dL (0.7-1.2); ESTIMATED GFR > 60; GLUCOSE 87 mg/dL (70-104); MAGNESIUM 1.1 mg/dL (1.5-2.7); POTASSIUM 3.7 mmol/L (3.5-5.1); SODIUM 140 mmol/L (136-145); TCO2 23 mmol/L (25-35)
[2019-02-11] MEDS ORDERED: MAXIPIME 2 GM in NS 50 ML IV SCH (08:30)
[2019-02-11] MEDS: IMODIUM PO PRN ×2 (08:39→17:10)
[2019-02-11] MEDS: CARDIZEM CD PO SCH (08:39)
[2019-02-11] MEDS: PEPCID PO SCH ×2 (08:39→20:01)
[2019-02-11] MEDS: THERA M PLUS PO SCH (08:39)
[2019-02-11] MEDS: LACTINEX PO SCH ×3 (08:41→17:10)
[2019-02-11] MEDS: FOLIC ACID PO SCH (08:41)
[2019-02-11] MEDS: VITAMIN B-1 PO SCH (08:41)
[2019-02-11] MEDS: PRILOSEC PO SCH (08:41)
[2019-02-11] MEDS: MIRALAX PO SCH (08:43)
[2019-02-11] MEDS: XOPENEX NEB INH SCH ×3 (10:31→20:22)
[2019-02-11] MEDS ORDERED: MAGNESIUM SULFATE 2 GM/S.W.I. 2 GM/50 ML IVPB IV ONE (11:03)
[2019-02-11] MEDS: MAXIPIME 2 GM in NS 100 ML IV SCH ×2 (11:21→22:10)
--- NOTE | 2019-02-11 16:57 | PROGRESS NOTE ---
DATE: 02/11/2019 SUBJECTIVE: Patient seems better, like he is just more with it, just more alert, just a lot more appropriately answering questions, etc. In any case, the patient is still very weak, probably some degree myopathy just associated with his poor functional status, but he seems to be getting a bit stronger. OBJECTIVE: Vital signs: Blood pressure 116/75, heart rate of 97, respiratory rate of 16, temperature 98.5 degrees, 99% on room air Cardiovascular: Regular rate and rhythm. Pulmonary: Bilateral breath sounds. Clear to auscultation. GI: Soft, nontender, nondistended. Bowel sounds are positive. LABORATORY DATA: Everything is stabilizing except his magnesium was 1.1. PROBLEM LIST: 1. Acute kidney injury. That seems stable. I am going to resume his Lasix because he does seem a bit overloaded, but we will continue to monitor. 2. Hypokalemia. We will supplement and follow. 3. Hypernatremia has resolved. 4. Digoxin toxicity. That is also essentially resolved. We will see what his number is tomorrow and decide about resuming his digoxin then. 5. Left lower lobe pneumonia. He is on cefepime, but I think his diarrhea has resolved. DISPOSITION: He is still very weak. We will see how he does tomorrow with physical therapy and be better able to gauge getting him out of here. cc: John Casiano MD [facility]
[2019-02-11] MEDS: LASIX PO SCH (17:10)
[2019-02-11] MEDS: TYLENOL PO PRN (19:57)
[2019-02-12 07:34] LABS: HEMATOCRIT 36.7 % (42.0-52.0); MCHC 32.7 g/dL (33-37); MCV 97.9 FL (81-99); RBC 3.75 XMIL (4.7-6.1); RDW 15.9 % (11.5-14.5); WBC 8.86 X1000 (4.8-10.8)
[2019-02-12 07:55] LABS: AGAP 14; BUN 34 mg/dL (8-22); CHLORIDE 104 mmol/L (98-107); COSMO 287; CREATININE 0.9 mg/dL (0.7-1.2); ESTIMATED GFR > 60; GLUCOSE 99 mg/dL (70-104); POTASSIUM 3.5 mmol/L (3.5-5.1); SODIUM 140 mmol/L (136-145); TCO2 22 mmol/L (25-35)
[2019-02-12] MEDS: LASIX PO SCH (08:40)
[2019-02-12] MEDS: PRILOSEC PO SCH (08:40)
[2019-02-12] MEDS: FOLIC ACID PO SCH (08:40)
[2019-02-12] MEDS: LACTINEX PO SCH ×3 (08:40→18:50)
[2019-02-12] MEDS: THERA M PLUS PO SCH (08:41)
[2019-02-12] MEDS: PEPCID PO SCH ×2 (08:41→22:09)
[2019-02-12] MEDS: CARDIZEM CD PO SCH (08:41)
[2019-02-12] MEDS: VITAMIN B-1 PO SCH (08:41)
[2019-02-12] MEDS: MIRALAX PO SCH (08:41)
[2019-02-12] MEDS: XOPENEX NEB INH SCH ×3 (11:52→22:29)
[2019-02-12] MEDS: MAXIPIME 2 GM in NS 100 ML IV SCH ×2 (13:56→23:09)
[2019-02-12] MEDS ORDERED: COLCRYS PO ONE (17:51)
[2019-02-12] MEDS ORDERED: SOLU-MEDROL IV ONE (17:51)
--- NOTE | 2019-02-12 18:10 | PROGRESS NOTE ---
DATE: 02/12/2019 SUBJECTIVE: Patient has no major complaints. OBJECTIVE: Vital signs: Blood pressure is 122/70, heart rate 111, respiratory rate 18, temperature 99 degrees, 94% on room air. Cardiovascular: Regular rate and rhythm. Pulmonary: Bilateral breath sounds. Clear to auscultation. GI: Was soft, nontender, nondistended. Bowel sounds are positive. Extremities: Have no clubbing or cyanosis. Lymphatic exam: No peripheral edema. Neurological: Exam was nonfocal. Hand exam: He does have very spongy painful MCP joints, mostly 2nd MCP joint. He can barely hold anything in his hand because of the gout. LABORATORY DATA: White count is 8, hemoglobin and hematocrit 12 and 36, platelets 235,000. PROBLEM LIST: 1. Acute kidney injury that is resolved. His Lasix, I am going to hold and monitor. 2. Hypokalemia that is resolved. 3. Gouty arthritis, polyarticular. We will resume colchicine. I am going to give him a dose of steroids. I think some of his poor functional status is just that he has gout. He has got really terrible gout. Of course there is concern over possible myopathy and we will have to be aware that, but he is definitely hyperuricemic. He will need allopurinol therapy. 4. Left lower lobe pneumonia. He is on cefepime. I think the diarrhea has essentially resolved. DISPOSITION: He is still really too weak to get out of bed. He cannot do transfers on his own. We are continuing to work with him on that level. cc: John Casiano MD
[2019-02-12] MEDS: COLCRYS PO SCH (22:09)
[2019-02-13 07:26] LABS: HEMATOCRIT 36.3 % (42.0-52.0); HEMOGLOBIN 11.9 g/dL (14.0-18.0); IMM GRAN# 0.02 X1000 (0.0-0.04); IMM GRAN% 0.3 % (0.0-0.5); LYMPH# 0.48 X1000 (1.2-3.4); LYMPH% 6.4 % (20.5-51.1); MCH 31.8 PG (27-31); MCHC 32.8 g/dL (33-37); MCV 97.1 FL (81-99); MONO# 0.39 X1000 (0.11-0.59); MONO% 5.2 % (1.7-9.3); MPV 11.1 FL (7.4-10.4); NEUT# 6.58 X1000 (1.4-6.5); NEUT% 88.1 % (42.2-75.2); PLT 266 X1000 (130-400); RBC 3.74 XMIL (4.7-6.1); WBC 7.47 X1000 (4.8-10.8)
[2019-02-13 08:05] LABS: AGAP 14; BUN 33 mg/dL (8-22); CALCIUM 8.9 mg/dL (8.8-10.2); CHLORIDE 99 mmol/L (98-107); COSMO 285; CREATININE 0.9 mg/dL (0.7-1.2); ESTIMATED GFR > 60; GLUCOSE 164 mg/dL (70-104); SODIUM 137 mmol/L (136-145); TCO2 24 mmol/L (25-35)
[2019-02-13] MEDS: MIRALAX PO SCH (09:44)
[2019-02-13] MEDS: LACTINEX PO SCH ×3 (09:44→17:57)
[2019-02-13] MEDS: FOLIC ACID PO SCH (09:46)
[2019-02-13] MEDS: COLCRYS PO SCH ×2 (09:46→21:46)
[2019-02-13] MEDS: CARDIZEM CD PO SCH (09:47)
[2019-02-13] MEDS: VITAMIN B-1 PO SCH (09:47)
[2019-02-13] MEDS: PRILOSEC PO SCH (09:47)
[2019-02-13] MEDS: THERA M PLUS PO SCH (09:47)
[2019-02-13] MEDS: PEPCID PO SCH ×2 (09:48→21:46)
[2019-02-13] MEDS: XOPENEX NEB INH SCH ×3 (10:11→21:57)
[2019-02-13] MEDS: MAXIPIME 2 GM in NS 100 ML IV SCH ×2 (11:05→23:55)
[2019-02-13] MEDS ORDERED: PREDNISONE PO ONE (16:47)
--- NOTE | 2019-02-13 17:29 | PROGRESS NOTE ---
DATE: 02/13/2019 SUBJECTIVE: Patient has no major complaints. OBJECTIVE: Blood pressure is 100/66, heart rate of 76, respiratory rate of 20, temperature 97.6 degrees, 100% on room air.Cardiovascular: Regular rate and rhythm. Pulmonary: Bilateral breath sounds. Clear to auscultation. GI: Soft, nontender, nondistended. Bowel sounds are positive. LABORATORY DATA: His white count is normal, hemoglobin and hematocrit 11, 36, platelets 266,000, BUN and creatinine 33 and 0.9. PROBLEM LIST: 1. Acute kidney injury that is resolved. 2. Acute gouty arthritis polyarticular but mostly focused in his hands. He has responded well to steroids per nursing, he can feed himself, he is a lot more functional today and that probably is what is contributing to some of his weakness and debility. 3. Pneumonia left lower lobe. We will continue treatment and follow. DISPOSITION: Pending clinical status. He has got to be able to make transfers before going home. He has no insurance. There are no rehab options and we are still a long way from reestablishing that although his mental status to me is much improved so I think overall he is doing better. cc: John Casiano MD
[2019-02-14 07:46] LABS: BASO# 0.01 X1000 (0.0-0.2); BASO% 0.1 % (0.0-0.8); HEMATOCRIT 32.3 % (42.0-52.0); HEMOGLOBIN 10.5 g/dL (14.0-18.0); IMM GRAN# 0.02 X1000 (0.0-0.04); IMM GRAN% 0.2 % (0.0-0.5); LYMPH# 0.58 X1000 (1.2-3.4); LYMPH% 7.2 % (20.5-51.1); MCH 31.5 PG (27-31); MCHC 32.5 g/dL (33-37); MONO# 0.96 X1000 (0.11-0.59); MPV 11.2 FL (7.4-10.4); NEUT# 6.44 X1000 (1.4-6.5); NEUT% 80.5 % (42.2-75.2); PLT 291 X1000 (130-400); RBC 3.33 XMIL (4.7-6.1); RDW 15.7 % (11.5-14.5); WBC 8.01 X1000 (4.8-10.8)
[2019-02-14 08:09] LABS: AGAP 11; BUN 34 mg/dL (8-22); CALCIUM 8.4 mg/dL (8.8-10.2); CHLORIDE 104 mmol/L (98-107); COSMO 284; CREATININE 0.9 mg/dL (0.7-1.2); ESTIMATED GFR > 60; GLUCOSE 115 mg/dL (70-104); POTASSIUM 3.6 mmol/L (3.5-5.1); SODIUM 138 mmol/L (136-145); TCO2 23 mmol/L (25-35)
[2019-02-14] MEDS: XOPENEX NEB INH SCH ×3 (09:42→21:44)
[2019-02-14] MEDS: NS NEB INH SCH ×2 (09:42→15:48)
[2019-02-14] MEDS: MAXIPIME 2 GM in NS 100 ML IV SCH ×2 (10:38→22:56)
[2019-02-14] MEDS: LACTINEX PO SCH ×3 (10:38→19:01)
[2019-02-14] MEDS: VITAMIN B-1 PO SCH (10:39)
[2019-02-14] MEDS: CARDIZEM CD PO SCH (10:39)
[2019-02-14] MEDS: COLCRYS PO SCH ×2 (10:39→21:48)
[2019-02-14] MEDS: MIRALAX PO SCH (10:39)
[2019-02-14] MEDS: FOLIC ACID PO SCH (10:39)
[2019-02-14] MEDS: THERA M PLUS PO SCH (10:39)
[2019-02-14] MEDS: PRILOSEC PO SCH (10:40)
[2019-02-14] MEDS: PREDNISONE PO SCH (10:40)
[2019-02-14] MEDS: PEPCID PO SCH ×2 (10:40→21:48)
--- NOTE | 2019-02-14 17:02 | PROGRESS NOTE ---
DATE: 02/14/2019 SUBJECTIVE: Patient has no major complaints. He seems awake, alert. OBJECTIVE: Vital signs: Blood pressure 112/80, heart rate 93, respiratory rate 17, temperature 98.8 degrees. Cardiovascular: Regular rate and rhythm. Pulmonary: Bilateral breath sounds. Clear to auscultation. GI: Soft, nontender, nondistended. Bowel sounds are positive. LABORATORY DATA: White count 8, hemoglobin and hematocrit 10 and 32, platelets 291,000. Basic was normal. PROBLEM LIST: 1. Acute kidney injury. That has resolved. 2. Polyarticular acute gout. He is improving with a little bit of steroids and colchicine. We will need to monitor this because I think some of his renal insufficiency may have been related to that initially, but his creatinine is doing okay. I think we can do prednisone for a couple more days and then maybe drop his dose to 10. 3. Alcohol abuse and severe debilitation associated with that. We are slowly getting strength back. He says he walked today. He walked about 25 feet it looks like. He is still requiring assistance for transfers. Once we can complete that, he should be able to go home. 4. Pneumonia. He is on antibiotics. This is a 2nd round, left lower lobe, and he is on day 4. I would do 7 to 10 days at the discretion of future provider. 5. Disposition. I think again will rely heavily on physical therapy but once he is able to do transfers, I think he should be able to go home. He has no outpatient resources. He is self- pay and has no rehab options as far as physical therapy, so we will have to get him strong enough before he can go home. Hopefully that will happen soon. cc: John Casiano MD
[2019-02-15 08:23] LABS: BASO# 0.01 X1000 (0.0-0.2); BASO% 0.1 % (0.0-0.8); EOS# 0.02 X1000 (0.0-0.7); EOS% 0.3 % (0.0-10.0); HEMATOCRIT 30.7 % (42.0-52.0); HEMOGLOBIN 9.9 g/dL (14.0-18.0); IMM GRAN# 0.05 X1000 (0.0-0.04); IMM GRAN% 0.7 % (0.0-0.5); LYMPH# 0.76 X1000 (1.2-3.4); MCH 31.8 PG (27-31); MCHC 32.2 g/dL (33-37); MCV 98.7 FL (81-99); MONO# 0.77 X1000 (0.11-0.59); MONO% 11.1 % (1.7-9.3); MPV 10.8 FL (7.4-10.4); NEUT# 5.32 X1000 (1.4-6.5); NEUT% 76.8 % (42.2-75.2); PLT 325 X1000 (130-400); RBC 3.11 XMIL (4.7-6.1); RDW 15.6 % (11.5-14.5); WBC 6.93 X1000 (4.8-10.8)
[2019-02-15 08:44] LABS: AGAP 10; BUN 30 mg/dL (8-22); CALCIUM 8.4 mg/dL (8.8-10.2); CHLORIDE 104 mmol/L (98-107); COSMO 279; CREATININE 0.8 mg/dL (0.7-1.2); ESTIMATED GFR > 60; GLUCOSE 89 mg/dL (70-104); POTASSIUM 3.1 mmol/L (3.5-5.1); SODIUM 137 mmol/L (136-145); TCO2 23 mmol/L (25-35)
[2019-02-15] MEDS: NS NEB INH SCH ×2 (09:03→16:25)
[2019-02-15] MEDS: XOPENEX NEB INH SCH ×3 (09:03→23:53)
[2019-02-15] MEDS: THERA M PLUS PO SCH (09:58)
[2019-02-15] MEDS: PREDNISONE PO SCH (09:58)
[2019-02-15] MEDS: FOLIC ACID PO SCH (09:58)
[2019-02-15] MEDS: VITAMIN B-1 PO SCH (09:58)
[2019-02-15] MEDS: CARDIZEM CD PO SCH (09:58)
[2019-02-15] MEDS: COLCRYS PO SCH ×2 (09:58→21:12)
[2019-02-15] MEDS: PRILOSEC PO SCH (09:58)
[2019-02-15] MEDS: LACTINEX PO SCH ×3 (09:59→16:56)
[2019-02-15] MEDS: PEPCID PO SCH ×2 (09:59→21:13)
[2019-02-15] MEDS: MIRALAX PO SCH (10:03)
[2019-02-15] MEDS: MAXIPIME 2 GM in NS 100 ML IV SCH ×2 (10:12→23:13)
--- NOTE | 2019-02-15 17:21 | PROGRESS NOTE ---
DATE: 02/15/2019 SUBJECTIVE: This patient is doing better. It looks like his strength is improving. Hopefully if he continues to improve, I am going to be able to discharge this patient soon, maybe in 1 or 2 more days. I already talked to his dad, who is going to live with him. We already discussed again about alcohol and tobacco abuse, and he seems to understand. I offer him to try to get a front wheel walker for him, but it looks like he already has one at home. OBJECTIVE: Vital Signs: Temperature 98.2 degrees, pulse 83, respiratory rate 16, blood pressure 127/89, oxygen saturation 100% on room air. HEENT: Head normocephalic, no trauma. PERRLA. Neck: Supple. No JVD. No masses. Central trachea. Chest: Clear to auscultation. No wheezing. No rales. Abdomen: Soft, nontender, nondistended. Extremities: No edema. No clubbing. Neurological: He is alert. He is oriented. He has generalized weakness, but apparently he has been doing a little bit better. LABORATORY: WBC 6.9, hemoglobin 9.9, hematocrit 30.7, platelets 325. Sodium 137, potassium 3.1, chloride 104, bicarbonate 23, BUN 30, creatinine 0.8, glucose 89, calcium 8.4. ASSESSMENT AND PLAN: 1. Alcohol abuse with severe weakness. We will continue with physical therapy. It looks like he is doing better. He is still requiring assistance for transfers. I already talked to his dad about that, and it looks like he is going to be able to take him home soon once he is able to do more stuff by himself. 2. Polyarticular acute gout, improving with steroids and colchicine. I have decreased the dose of steroids to 10 daily. 3. Acute kidney injury, resolved. This is basically his baseline. 4. Pneumonia. He has been placed on antibiotics. He is not complaining of shortness of breath at this moment. We will continue with the same management. DISPOSITION: We will continue physical therapy, and hopefully once he is able to transfer from the bed to the bathroom or at least be able to do something similar, I will send this patient home. I already talked to the family, especially his father, who will take care of him. He seems to be doing much better compared with admission. cc: Mor Barajas MD
[2019-02-16 07:54] VITALS: BP 142/91
[2019-02-16] MEDS: XOPENEX NEB INH SCH (08:09)
[2019-02-16 08:13] LABS: BASO# 0.01 X1000 (0.0-0.2); BASO% 0.1 % (0.0-0.8); EOS# 0.05 X1000 (0.0-0.7); EOS% 0.7 % (0.0-10.0); HEMATOCRIT 31.6 % (42.0-52.0); HEMOGLOBIN 10.1 g/dL (14.0-18.0); IMM GRAN# 0.04 X1000 (0.0-0.04); IMM GRAN% 0.6 % (0.0-0.5); LYMPH% 11.2 % (20.5-51.1); MCH 31.7 PG (27-31); MCV 99.1 FL (81-99); MONO# 0.79 X1000 (0.11-0.59); MPV 10.7 FL (7.4-10.4); NEUT# 5.46 X1000 (1.4-6.5); NEUT% 76.4 % (42.2-75.2); PLT 366 X1000 (130-400); RBC 3.19 XMIL (4.7-6.1); RDW 15.7 % (11.5-14.5); WBC 7.15 X1000 (4.8-10.8)
[2019-02-16 08:36] LABS: AGAP 9; BUN 25 mg/dL (8-22); CALCIUM 8.8 mg/dL (8.8-10.2); CHLORIDE 108 mmol/L (98-107); COSMO 285; CREATININE 0.7 mg/dL (0.7-1.2); ESTIMATED GFR > 60; GLUCOSE 83 mg/dL (70-104); POTASSIUM 3.8 mmol/L (3.5-5.1); SODIUM 141 mmol/L (136-145); TCO2 24 mmol/L (25-35)
[2019-02-16] MEDS ORDERED: PREDNISONE PO SCH (09:00)
[2019-02-16] MEDS: VITAMIN B-1 PO SCH (09:10)
[2019-02-16] MEDS: COLCRYS PO SCH (09:11)
[2019-02-16] MEDS: FOLIC ACID PO SCH (09:11)
[2019-02-16] MEDS: PRILOSEC PO SCH (09:11)
[2019-02-16] MEDS: PEPCID PO SCH (09:11)
[2019-02-16] MEDS: THERA M PLUS PO SCH (09:11)
[2019-02-16] MEDS: CARDIZEM CD PO SCH (09:12)
[2019-02-16] MEDS: MIRALAX PO SCH (09:12)
[2019-02-16] MEDS: LACTINEX PO SCH (09:12)
--- NOTE | 2019-02-16 20:40 | DISCHARGE SUMMARY ---
ADMISSION DATE: 01/05/2019 DISCHARGE DATE: 02/16/2019 DIAGNOSES: 1. Atrial fibrillation with rapid ventricular response. 2. Bibasilar pneumonia. 3. Acute hypoxemic respiratory failure resolved. 4. Bilateral pleural effusions. 5. Chronic obstructive pulmonary disease. 6. Delirium tremens. 7. Chronic alcohol use and abuse. 8. Elevated D-dimer with a CTA pulmonary and bilateral lower extremity Doppler negative for embolus. 9. Congestive heart failure systolic with an EF of 40%. 10. Acute kidney injury, resolved. 11. Polyarticular acute gout, improving. 12. Digoxin toxicity. 13. Ileus. 14. Medical noncompliance. CONSULTS: 1. Dr. Richie Razo, infectious disease. 2. Dr. Benja Morris, general surgery. 3. Dr. Burk, pulmonology. 4. Dr. Casas, cardiology. MICROBIOLOGY: 1. Blood cultures x2 on 01/05, 1 out of 2 reveals Streptococcus mitis. 2. Blood cultures 01/09/2019, 01/12/2019, 01/20/2019, 02/06/2019, all revealed no growth after 5 days. 3. Urine culture 01/05/2019 revealed no growth. 4. Urine culture 01/11/2019, 01/25/2019 both revealed no growth. 5. Clostridium difficile antigen was negative. Clostridium difficile toxin was negative. DIAGNOSTICS: 1. 01/05/2019, lower extremity Doppler bilateral revealed negative exam. 2. 01/05/2019, echocardiogram revealed ejection fraction 40% with mild left ventricular hypertrophy. There was trace pericardial effusion. Pleural effusion was noted. No obvious intracardiac mass or thrombus seen. 3. 01/19/2019, abdominal x-ray revealed stable colonic distention. 4. Venous Doppler to hematoma revealed significant soft tissue edema at the anterior aspect of the thigh. No loculated fluid to indicate abscess. 5. 01/16/2019, CT of the head revealed a negative brain CT without contrast. 6. 01/19/2019, CT of the abdomen and pelvis with oral contrast only, revealed significant gases distention of the colon and mild distention of a few loops of small bowel but no wall thickening. No stricture identified. Consider ileus. Hematoma on the anterior medial aspect of the right thigh that is partly imaged. Bilateral small pleural effusions. 7. 02/06/2019, CT of the thorax without contrast revealed severe COPD with minimal infiltrate pneumonia in the left lower lobe. Patient had multiple chest x-rays throughout the hospitalization trending pneumonia as well as NGT placement. HOSPITAL COURSE: Mr. Michael presented to the emergency room complaining of shortness of breath. He was found to be in atrial fibrillation with rapid ventricular response. He was admitted to [place] ICU, placed on a Cardizem drip. Cardiology was consulted and medications were managed, and currently, he remains in atrial fibrillation with rate controlled in the 70 to 90 range. He was found to have bibasilar pneumonia for which he was initially treated with Rocephin and azithromycin on the . He was changed to vancomycin and cefepime on February 06. On January 20, Zosyn was added. On January 24 Dr. Richie Razo, Infectious Disease discontinued all his antibiotics as his last fever was January 21. He did continued to have leukocytosis, although they felt that steroids were contributing to this. Repeat urine culture revealed no growth. We did supplement oxygen as needed. Initially he required Ventimask and he was weaned out of nasal cannula and he has been on room air since February 09 maintaining O2 saturations of 98% to 100%. He did have an elevated D-dimer. CTA pulmonary was negative for pulmonary embolus. Bilateral lower extremity Doppler was negative for DVT. He has a long history of alcohol use and abuse drinking at least a pint of vodka a day sometimes more. He was monitored in ICU. He did go through DTs requiring Librium, which did sedate him. Thankfully, this has passed. He was able to move out of ICU and has shown no further signs of any withdrawal. During the hospitalization, we did trend his electrolytes and repleted and treated as was appropriate. He does have COPD and had acute hypoxemic respiratory failure. As stated before this was treated with supplemental oxygen. We gave steroids to taper as well as nebulizers. At present, this has improved. He has no more shortness. Saturations are 98 to 100 on room air, as stated above. He denies any shortness of breath or dyspnea on exertion. He denies any orthopnea or PND. He did have acute gout flare up for which he was treated with steroids and colchicine. This is improving. He did have a rise in his creatinine on February 06 and . With gentle hydration this did resolve. On February 06, he was found to have an ileus. NG tube was placed. He was placed on bowel rest. Thankfully, NG tube was able to be discontinued. Diet has been progressed to a mechanical soft and he is eating 50% to 100% of meals served. He has been having bowel movements almost daily. He did have bilateral pleural effusions. Dr. Benja Morris was consulted to evaluate for draining chest tube and he felt that this was not warranted due to the patient's unstable condition at that time. Repeat CT scan on February 06, he had no further effusions. He did continue to have severe COPD and he had a minimal left lower lobe pneumonia for which he was treated. He was seen by physical therapy, due to deconditioning, he did cooperate and he was able to ambulate 250 feet with a gait belt on February 15. DISCHARGE VITAL SIGNS: Blood pressure is 142/91, heart rate of 84, respirations 18, temperature is 98 degrees. Room air saturations 98 to 100. DISCHARGE PHYSICAL EXAMINATION: Cardiovascular: Regular rate and rhythm. S1, S2 appreciated. He has no lower extremity edema. Calves are nontender with peripheral pulses palpable x4 extremities. Pulmonary: Breath sounds clear. No increased work of breathing noted. Chest rises and falls with symmetric respiration. Gastrointestinal: Abdomen is soft, nontender, nondistended with bowel sounds in all 4 quadrants. Neurologic: He is awake and alert and oriented. Skin: Warm and dry. DISCHARGE MEDICATIONS: 1. Thiamin 100 mg 1 p.o. daily. 2. Prednisone 10 mg p.o. daily for 4 days. 3. MiraLAX 17 g p.o. daily as needed for constipation. 4. Thera Plus vitamin 1 p.o. daily. 5. Folic acid 1 mg p.o. daily. 6. Pepcid 20 mg p.o. q.12 hours. 7. Cardizem CD 120 mg p.o. daily. 8. Colcrys 0.6 mg p.o. b.i.d. 9. Lactinex 1 packet p.o. t.i.d. DISPOSITION: The patient is being discharged home in stable condition with his parents. He will use a walker. FOLLOW-UP INSTRUCTIONS: He is to follow up with his primary care physician in 1 week. He has been instructed to call to be seen sooner or return to the emergency room for any syncope, dizziness, chest pain, palpitations, temperature greater than 101, any productive cough, shortness of breath, PND, orthopnea, any nausea, vomiting, diarrhea, constipation, black or bloody vomitus or stools, hematuria, dysuria, frequency urgency or for any questions or concerns that he may have. The plan was discussed with Dr. Vo. TIME SPENT AT DISCHARGE: This is a greater than 30 minute discharge. Dictated by YNES Zuniga for Mor Barajas MD cc: YNES Zuniga MD MTDD
== END 2019-02-16 12:35 | disposition home or self-care (01) | DRG 308 ==
LOC: P.ED 11:08 → P.ICU 13:23 → SUATTDRO 13:23 → ICU 01-06 12:29 → 3S 01-18 15:22 → ICU 01-20 15:59 → 3S 01-25 09:22 → 3N 01-27 10:57 → UNDODISIN 02-02 18:22
PROVIDERS: ATTEND Internal Medicine